=== PATIENT | female | born 1945 | race Caucasian/White ===

== ENCOUNTER → 2022-12-22 13:37 | Outpatient (BNVA) | payer MEDICARE, SELFPAY | PROVIDERS: PCP Internal Medicine; Visit Provider Hospitalist | DX: J44.9 Chronic obstructive pulmonary disease, unspecified (principal); J96.10 Chronic respiratory failure, unspecified whether with hypoxia or hypercapnia; I50.9 Heart failure, unspecified; G47.33 Obstructive sleep apnea (adult) (pediatric); R60.0 Localized edema | CPT/HCPCS: 94618; 99202 ==

== ENCOUNTER 2023-01-18 15:50 | Outpatient (REF) | payer MEDICARE, SELFPAY ==
--- NOTE | ~2023-01-18 | XR_ITS ---
EXAMINATION: XR CHEST CLINICAL INFORMATION: COPD COMPARISON: None available. TECHNIQUE: 2 views of the chest were obtained. FINDINGS: No significant abnormality is noted involving the heart, lungs, mediastinum, bony thorax or soft tissues. XR/XR chest 2V IMPRESSION: Unremarkable chest examination.
--- NOTE | 2023-01-18 17:28 | PFT_ITS ---
INDICATION: COPD. SPIROMETRY: FEV1 to FVC of 67% with an FEV1 of 1 L, which is 56% predicted and FVC of 1.49 L, which is 62% predicted. No significant response to bronchodilator is noted. Maximum voluntary ventilation is 49%. LUNG VOLUMES: Total lung capacity 81% predicted. DIFFUSION CAPACITY: DLCO 71% predicted. COMPARISON: None. INTERPRETATION: There is an obstructive ventilatory defect consistent with moderate COPD. No significant response to bronchodilators noted. Moderate decrease in maximum voluntary ventilation secondary to likely deconditioning. Lung volumes are low normal with a significantly decreased expiratory reserve volume secondary to an elevated BMI. The patient has a diffusion impairment. Clinical correlation warranted. Jeffery Jackson MD MR/MODL / [id number]
== END 2023-01-18 15:51 | disposition home or self-care (01) ==
LOC: HO.RESP 15:50
PROVIDERS: PCP Internal Medicine; Visit Provider Hospitalist
DX: J44.9 Chronic obstructive pulmonary disease, unspecified (principal)
CPT/HCPCS: 71046; 94060; 94727; 94729

== ENCOUNTER 2023-01-25 15:18 | Outpatient (REF) | payer MEDICARE, SELFPAY ==
[2023-01-25 18:14] LABS: Eosinophils Percent Auto 0.2 % (0-4); Red Cell Distribution Width 13.2 % (11.0-16.0); SCAN SMEAR FLAG 1
[2023-01-25 18:16] LABS: Basophils Percent Auto 0.2 % (0-2); Hematocrit 39.8 % (37.0-47.0); Imm Gran Abs Auto 0.08 X10*3/uL (0.00-0.03); Imm Gran Pct Auto 0.7 % (0.0-0.4); Lymphocytes Absolute Auto 0.6 X10*3/uL (1.2-4.9); MANUAL DIFF FLAG SCAN; Mean Corpuscular HGB Conc 32.7 g/dl (31.0-35.0); Mean Corpuscular Hemoglobin 30.7 pg (27.0-33.0); Mean Corpuscular Volume 94.1 fL (80.0-98.0); Mean Platelet Volume 13.2 fL (9.4-12.3); Monocytes Absolute Auto 0.1 X10*3/uL (0.1-1.2); Monocytes Percent Auto 0.9 % (2-11); Neutrophils Absolute Auto 10.6 x10*3/uL (2.0-8.3); Platelet Count 173 X10*3/uL (160-400); Red Blood Count 4.23 X10*6/uL (4.20-5.50); White Blood Count 11.4 X10*3/uL (4.8-10.8)
[2023-01-25 18:18] LABS: PLT ABN DIST 1
[2023-01-25 18:28] LABS: Anion Gap 16 (12-20); Blood Urea Nitrogen 57 mg/dL (9-16); Calcium 6.7 mg/dL (8.4-10.2); Carbon Dioxide 31 mmol/L (22-29); Chloride 97 mmol/L (96-108); Estimated Glomerular Filt Rate 24; Glucose Random 416 mg/dL (60-115); Potassium 4.9 mmol/L (3.3-5.1); Sodium 139 mmol/L (135-145)
[2023-01-25 18:39] LABS: Erythrocyte Sedimentation Rate 49 MM/HR (0-20)
[2023-01-25 18:51] LABS: SLIDE REVIEW VERIFIED
[2023-01-27 13:58] LABS: Immunoglobulin G Subclass 1 239 mg/dL (382-929); Immunoglobulin G Subclass 2 248 mg/dL (241-700); Immunoglobulin G Subclass 3 79 mg/dL (22-178); Immunoglobulin G Subclass 4 24.5 mg/dL (4-86); Immunoglobulin G Total 641 mg/dL (600-1540)
== END 2023-01-25 15:19 | disposition home or self-care (01) ==
LOC: HO.LAB 15:18
PROVIDERS: PCP Internal Medicine; Visit Provider Hospitalist
DX: J44.9 Chronic obstructive pulmonary disease, unspecified (principal); J96.10 Chronic respiratory failure, unspecified whether with hypoxia or hypercapnia; G47.33 Obstructive sleep apnea (adult) (pediatric); R60.0 Localized edema; I50.9 Heart failure, unspecified; I27.20 Pulmonary hypertension, unspecified; T78.40XA Allergy, unspecified, initial encounter
CPT/HCPCS: 36415; 80048; 82784; 82785; 85025; 85652; 86003; 94618; 99212

== ENCOUNTER 2023-05-18 14:34 | Outpatient (AMB) | payer MEDICARE, SELFPAY ==
[2023-05-18 14:40] VITALS: BP 154/80; PULSE 98; O2SAT 99; BMI 41.5
--- NOTE | 2023-05-18 14:40 | MHC.OFFVIS ---
Intake Vital Signs 05/18/23 14:40 Height 5 ft 2 in Weight 227 lb BMI 41.5 BP 154/80 H Blood Pressure Location Lt brachial Position Standing Pulse 98 Pulse Source Pulse Oximeter Pulse Oximetry (%) 99 Oxygen Delivery Method Nasal Cannula Oxygen Flow Rate 2 Intake Visit Reasons: hosp follow up Intake Note: pt is here for follow up of hospital stays for shingles. Her breathing is so so. Allergies erythromycin base Allergy (Severe, Verified 05/18/23 14:47) Rash ciprofloxacin [From Cipro] Adverse Reaction (Severe, Verified 05/18/23 14:47) Rash HPI HPI Comments History of Present Illness Details The patient is a 77 year woman with a known history of COPD, ROBERTO on CPAP, in addition to congestive heart failure been complaining of worsening dyspnea on exertion the patient states that several years ago she was admitted to [facility] with a episode of decompensated heart failure. During that time the patient was placed on oxygen and was placed on cardioprotective medications and diuretics. Ultimately she was discharged on oxygen. Therefore she has been on oxygen now for several years getting his at her oxygen to her [employer] company, [employer] Her family has also noticed that she has had significant wheezing and shortness of breath. She had been evaluated by Pulmonary in the past although I do not have those notes. She has not had pulmonary function studies in several years. She did follow-up with her primary care doctor who noted that she had been having significant wheezing and she was given a course of prednisone and also a sample of Stiolto. She completed the prednisone and she did feel little partial improvement. She continues on the Stiolto although is difficult for her to use. She had been on Anoro inhaler in the past but was 300 dollars extremely expensive and she could not afford using that on a monthly basis. Her friend did have a nebulizer and did provide the nebulizer for on treatment because she was wheezy and she did have improvement of her symptoms. She is wondering if a nebulizer could be helpful. Therefore she was referred to Pulmonary for further evaluation. During the visit we did go for 6 minutes walk test on the patient quickly desaturated on room air. She did well with a conserving device so therefore I will see resend a prescription to her [employer] company, [employer] in order for her to get be cylinders with a conserving valve with 2 L pulse. This will provide her better portability outside of the home. The patient also family the are also interested in getting a portable oxygen concentrator. Explained to them that this would be something that could be done but is going to take a significantly long time and sometimes it could be more than a year. Therefore she can start with the cylinders and try the pulse valve to see how this is effective for her. We can also provide her with a nebulizer and provided with medications in order for her to use it on a regular basis. The in the meantime will also have her undergo pulmonary function studies and a chest x-ray and she will follow up. the patient is also working with Cardiology. She did undergo an echocardiogram and now scheduled to undergo a nuclear stress test in the coming days. I do not have those results. 01/25/2023 the patient is here for pulmonary follow-up visit. Since we last spoke the patient did develop worsening shortness of breath and cough and wheezing. She did call in and we Center prednisone antibiotics. The prednisone did help her breathing significantly. Now she has completed the course. She still having shortness of breath. She did qualify for oxygen with activity during the last visit. Will go ahead and make sure that [facility] [place] provides her with portable tanks ideally be sending the heart to be able to carry the oxygens outside of the home easier. In addition to this the patient has been using the Xopenex and also the budesonide twice a day. This has been partially helpful. We can also add muscarinic antagonist to the regimen and is no better. In addition to this will request blood work including allergy testing to assess to see if she is a good candidate for biologic therapy. We did review her pulmonary function studies demonstrating a moderate to severe obstructive lung disease in this case likely uncontrolled asthma and also the of lotion of COPD. Apparently the patient did have an echocardiogram done. I do not have the results but based on the daughter's description it appears that she has a component of pulmonary hypertension. Apparently her cardiac status is otherwise stable. It is possible that she has pulmonary hypertension secondary to her history of COPD and also some obstructive sleep apnea. Although will have to further address that to make sure the patient does not have any of the other groups. Patient is definitely volume overloaded this time she needs a additional diuresis. 05/19/2023 the patient is here for hospital follow-up visit. The patient has COPD and also has been on CPAP. [facility]. She was having significant shortness of breath. While she was there she developed respiratory failure. She was transferred over to [facility] required BiPAP. Even after BiPAP she has evidence of chronic hypercarbic respiratory failure secondary to her COPD. The patient has been on maximum respiratory therapy for COPD. At this point the patient needs to restart her on a noninvasive ventilator. The patient carries a poor prognosis with significant hypercarbia. She also carries a high risk of readmissions to the hospital. For that reason the patient needs to start a noninvasive ventilator. Noninvasive ventilator were improve her gas exchange and would also improve her prognosis and decrease hospitalizations. I spoken to the family and they are agreeable to this will start the process in order to get her on an astral noninvasive ventilator at this time. [facility] Medical History (Updated 05/19/23 @ 10:58 by Jeffery Jackson MD) Asthma CHF (congestive heart failure) Chronic respiratory failure COPD (chronic obstructive pulmonary disease) Extremity edema ROBERTO (obstructive sleep apnea) Pulmonary hypertension Social History Patient Tobacco Use Status: Never used Tobacco Review of Systems Const Reports daytime sleepiness, Reports fatigue and Reports weight gain Eyes Denies change in vision ENT Denies nasal congestion Card Denies chest pain, Reports leg edema and Reports dyspnea on exertion Resp Reports cough, Reports dyspnea on exertion and Reports wheezing GI Reports no additional complaints Musc Reports no additional complaints and Reports myalgias Skin/Breast Denies rash Neuro Reports no additional complaints Endo Reports fatigue Clint/Lymph Denies easy bleeding and Denies easy bruising Aller/Immun Reports wheezing Physical Exam Vital Signs: Last Vital Signs Pulse 98 05/18/23 14:40 BP 154/80 H 05/18/23 14:40 Pulse Ox 99 05/18/23 14:40 Oxygen Delivery Method Nasal Cannula 05/18/23 14:40 Oxygen Flow Rate 2 05/18/23 14:40 BMI result Body Mass Index 41.5 Const General: comfortable HEENT Head: Yes normocephalic Eyes General: appearance normal, both eyes and all related structures Neck Neck: Yes supple Chest Chest palpation & inspection: normal inspection of the chest Resp Effort & Inspection: normal respiratory effort Auscultation: no rales, no wheezes and diminished lung sounds Cardio Rate: regular rate Rhythm: regular rhythm Heart sounds: S1 normal heart sound present and S2 normal heart sound present GI Palpation (GI): Soft to palpation Skin General skin exam: no rashes or lesions noted Extrem General: Yes edema Office Procedures 6 Minute Walk Time:: 15:10 SPO2 % at rest: 92 Pulse at rest: 86 SPO2 % during excercise: 84 Pulse during excercise: 104 SPO2 % after excercise: 94 Pulse after excercise: 104 Distance in yards walked: 75 Prasanna Score: 5 Supplemental Oxygen: O2 at 2L Performance Observations:: SPO2 at rest 92% Pulse 86 Patient walked on level ground without assistance. After 20 yards SPO2 dropped to 84% Pulse 104.Supplemental O2 applied at 2L via nasal cannula and rested 1 minute. Recovered SPO2 to 93% Pulse 98. Patient was able to complete the walk at moderate pace with supplemental O2 at 2L. Patient reports getting tired with shortness of breath with exertion. 32097 - 6 Minute Walk Assessment & Plan Assessment & Plan (1) COPD (chronic obstructive pulmonary disease): Comment: moderate to severe Code(s): J44.9 - Chronic obstructive pulmonary disease, unspecified (2) Extremity edema: Code(s): R60.0 - Localized edema (3) Chronic respiratory failure: Comment: We have evidence of chronic hypercarbic and hypoxic respiratory failure. The patient tried BiPAP and she is still hypercarbic. He the patient carries a poor prognosis and high risk for hospitalizations. She needs to start a noninvasive ventilator at this time to improve her gas exchange improved her prognosis and decrease hospitalizations. We will be arranging this with local [employer] company. Code(s): J96.10 - Chronic respiratory failure, unspecified whether with hypoxia or hypercapnia (4) CHF (congestive heart failure): Code(s): I50.9 - Heart failure, unspecified (5) Pulmonary hypertension: Comment: Likely WHO group 2&3 Code(s): I27.20 - Pulmonary hypertension, unspecified Plan continue nebulizer with xopenex and budesonide continue oxygen continue nocturnal oxygen use start Astral non invasive ventilator F/U 6-8 weeks Orders: Orders AMB 6 minute walk 05/18/23 J44.9 - Chronic obstructive pulmonary disease, unspecified Coding Level of Care Code Est Pt Level 5 (07466) Diagnoses COPD (chronic obstructive pulmonary disease) J44.9 Extremity edema R60.0 Chronic respiratory failure J96.10 CHF (congestive heart failure) I50.9 Pulmonary hypertension I27.20 CPT Codes Coding ([id number]) Time Spent (min) 30
[2023-05-18 15:40] VITALS: PULSE 86; O2SAT 92
== END 2023-05-18 15:21 | disposition home or self-care (01) ==
PROVIDERS: PCP Internal Medicine; Visit Provider Hospitalist
DX: J44.9 Chronic obstructive pulmonary disease, unspecified (principal); J96.11 Chronic respiratory failure with hypoxia; J96.12 Chronic respiratory failure with hypercapnia; I27.20 Pulmonary hypertension, unspecified; I50.9 Heart failure, unspecified; R60.0 Localized edema
CPT/HCPCS: 94618; 99214

== ENCOUNTER → 2023-05-18 14:34 | Outpatient (BNVA) | payer MEDICARE, SELFPAY | PROVIDERS: PCP Internal Medicine; Visit Provider Hospitalist | DX: J44.9 Chronic obstructive pulmonary disease, unspecified (principal); J96.10 Chronic respiratory failure, unspecified whether with hypoxia or hypercapnia; R60.0 Localized edema; I50.9 Heart failure, unspecified; I27.20 Pulmonary hypertension, unspecified | CPT/HCPCS: 94618; 99212 ==

== ENCOUNTER 2023-07-08 11:02 | Outpatient (AMB) | payer MEDICARE, SELFPAY ==
[2023-07-08 11:12] VITALS: PULSE 82; O2SAT 94; BMI 45.9
--- NOTE | 2023-07-08 11:12 | A.OFFVIS_ITS ---
Intake Vital Signs 07/08/23 11:12 Height 5 ft 1 in Weight 243 lb BMI 45.9 Pulse 82 Pulse Source Pulse Oximeter Pulse Oximetry (%) 94 Oxygen Delivery Method Room Air Comment 2 Liters Oxygen([facility]) Intake Visit Reasons: hosp follow up Allergies erythromycin base Allergy (Severe, Verified 07/08/23 11:14) Rash ciprofloxacin [From Cipro] Adverse Reaction (Severe, Verified 07/08/23 11:14) Rash HPI HPI Comments History of Present Illness Details The patient is a 78 year woman with a known history of COPD, ROBERTO on CPAP, in addition to congestive heart failure been complaining of worsening dyspnea on exertion the patient states that several years ago she was admitted to [facility] with a episode of decompensated heart failure. During that time the patient was placed on oxygen and was placed on cardioprotective medications and diuretics. Ultimately she was discharged on oxygen. Therefore she has been on oxygen now for several years getting his at her oxygen to her [employer], [employer]. Her family has also noticed that she has had significant wheezing and shortness of breath. She had been evaluated by Pulmonary in the past although I do not have those notes. She has not had pulmonary function studies in several years. She did follow-up with her primary care doctor who noted that she had been having significant wheezing and she was given a course of prednisone and also a sample of Stiolto. She completed the prednisone and she did feel little partial improvement. She continues on the Stiolto although is difficult for her to use. She had been on Anoro inhaler in the past but was 300 dollars extremely expensive and she could not afford using that on a monthly basis. Her friend did have a nebulizer and did provide the nebulizer for on treatment because she was wheezy and she did have improvement of her symptoms. She is wondering if a nebulizer could be helpful. Therefore she was referred to Pulmonary for further evaluation. During the visit we did go for 6 minutes walk test on the patient quickly desaturated on room air. She did well with a conserving device so therefore I will see resend a prescription to her [employer], [employer] in order for her to get be cylinders with a conserving valve with 2 L pulse. This will provide her better portability outside of the home. The patient also family the are also interested in getting a portable oxygen concentrator. Explained to them that this would be something that could be done but is going to take a significantly long time and sometimes it could be more than a year. Therefore she can start with the cylinders and try the pulse valve to see how this is effective for her. We can also provide her with a nebulizer and provided with medications in order for her to use it on a regular basis. The in the meantime will also have her undergo pulmonary function studies and a chest x-ray and she will follow up. the patient is also working with Cardiology. She did undergo an echocardiogram and now scheduled to undergo a nuclear stress test in the coming days. I do not have those results. 01/25/2023 the patient is here for pulmon riri follow-up visit. Since we last spoke the patient did develop worsening shortness of breath and cough and wheezing. She did call in and we Center prednisone antibiotics. The prednisone did help her breathing significantly. Now she has completed the course. She still having shortness of breath. She did qualify for oxygen with activity during the last visit. Will go ahead and make sure that [facility] provides her with portable tanks ideally be sending the heart to be able to carry the oxygens outside of the home easier. In addition to this the patient has been using the Xopenex and also the budesonide twice a day. This has been partially helpful. We can also add muscarinic antagonist to the regimen and is no better. In addition to this will request blood work including allergy testing to assess to see if she is a good candidate for biologic therapy. We did review her pulmonary function studies demonstrating a moderate to severe obstructive lung disease in this case likely uncontrolled asthma and also the of lotion of COPD. Apparently the patient did have an echocardiogram done. I do not have the results but based on the daughter's description it appears that she has a component of pulmonary hypertension. Apparently her cardiac status is otherwise stable. It is possible that she has pulmonary hypertension secondary to her history of COPD and also some obstructive sleep apnea. Although will have to further address that to make sure the patient does not have any of the other groups. Patient is definitely volume overloaded this time she needs a additional diuresis. 05/19/2023 the patient is here for hospit al follow-up visit. The patient has COPD and also has been on CPAP. She was admitted to the [facility] hospital with significant discomfort. She was having significant shortness of breath. While she was there she developed respiratory failure. She was transferred over to [facility] required BiPAP. Even after BiPAP she has evidence of chronic hypercarbic respiratory failure secondary to her COPD. The patient has been on maximum respiratory therapy for COPD. At this point the patient needs to restart her on a noninvasive ventilator. The patient carries a poor prognosis with significant hypercarbia. She also carries a high risk of readmissions to the hospital. For that reason the patient needs to start a noninvasive ventilator. Noninvasive ventilator were improve her gas exchange and would also improve her prognosis and decrease hospitalizations. I spoken to the family and they are agreeable to this will start the process in order to get her on an astral noninvasive ventilator at this time. 07/08/2023 the patient is here for a pulmonary follow-up visit. Overall the patient has been doing better from a respiratory status. She did start the astral noninvasive ventilator. Is been very effective for her. She does use it every night. The therapy has been effective am beneficial. She is also been using her oxygen. The patient has been noticing increasing shortness of breath. Recently had a big [place] festival and she made a lot of food. There was some dietary indiscretions unfortunately. The patient noticed that her blood pressure went up and also significant weight gain. She is been working closely with cardiology to increase her diuretic safely. She does have blood work scheduled for tomorrow for additional evaluation of electrolytes and kidney function. If she does not improve there is mention of in-hospital therapy. We did have her undergo a chest x-ray today. No focal disease although appears to be demonstrating evidence of pulmonary vascular congestion. the patient will continue the diuretics as per Cardiology. If the patient is not better she will call and we can consider treating her for an ongoing lower respiratory process. But, right now she is not having any significant cough chest congestion or wheezing. [facility] Medical History (Updated 05/19/23 @ 10:58 by Jeffery Jackson MD) Pulmonary hypertension Asthma CHF (congestive heart failure) Chronic respiratory failure ROBERTO (obstructive sleep apnea) Extremity edema COPD (chronic obstructive pulmonary disease) Social History Patient Tobacco Use Status: Never used Tobacco Review of Systems Const Reports daytime sleepiness, Reports fatigue and Reports weight gain Eyes Denies change in vision ENT Denies nasal congestion Card Denies chest pain, Reports leg edema and Reports dyspnea on exertion Resp Reports cough, Reports dyspnea on exertion and Reports wheezing GI Reports no additional complaints Musc Reports no additional complaints and Reports myalgias Skin/Breast Denies rash Neuro Reports no additional complaints Endo Reports fatigue Clint/Lymph Denies easy bleeding and Denies easy bruising Aller/Immun Reports wheezing Physical Exam Vital Signs: Last Vital Signs Pulse 82 07/08/23 11:12 Pulse Ox 94 07/08/23 11:12 Oxygen Delivery Method Room Air 07/08/23 11:12 BMI result Body Mass Index 45.9 Const General: comfortable HEENT Head: Yes normocephalic Eyes General: appearance normal, both eyes and all related structures Neck Neck: Yes supple Chest Chest palpation & inspection: normal inspection of the chest Resp Effort & Inspection: normal respiratory effort Auscultation: rales, no wheezes and diminished lung sounds Cardio Rate: regular rate Rhythm: regular rhythm Heart sounds: S1 normal heart sound present and S2 normal heart sound present GI Palpation (GI): Soft to palpation Skin General skin exam: no rashes or lesions noted Extrem General: Yes edema Assessment & Plan Assessment & Plan (1) COPD (chronic obstructive pulmonary disease): Comment: moderate to severe Code(s): J44.9 - Chronic obstructive pulmonary disease, unspecified (2) Extremity edema: Code(s): R60.0 - Localized edema (3) Chronic respiratory failure: Comment: We have evidence of chronic hypercarbic and hypoxic respiratory failure. The patient tried BiPAP and she is still hypercarbic. He the patient carries a poor prognosis and high risk for hospitalizations. She needs to start a noninvasive ventilator at this time to improve her gas exchange improved her prognosis and decrease hospitalizations. We will be arranging this with local [facility] company. Code(s): J96.10 - Chronic respiratory failure, unspecified whether with hypoxia or hypercapnia (4) CHF (congestive heart failure): Code(s): I50.9 - Heart failure, unspecified (5) Pulmonary hypertension: Comment: Likely WHO group 2&3 Code(s): I27.20 - Pulmonary hypertension, unspecified Plan continue nebulizer with xopenex and budesonide continue oxygen continue nocturnal oxygen use continue Astral non invasive ventilator Agree with diuresis, may benefit from inpt if fails outpt therapy. She does have evidence of CHF with +crakles and increase pulmonary vascular congestion. CXR F/U 8-12 weeks Orders: Orders XR chest 2V Today I50.9 - Heart failure, unspecified Coding Level of Care Code Est Pt Level 4 (17094) Diagnoses COPD (chronic obstructive pulmonary disease) J44.9 Extremity edema R60.0 Chronic respiratory failure J96.10 CHF (congestive heart failure) I50.9 Pulmonary hypertension I27.20 Time Spent (min) 17
== END 2023-07-08 11:44 | disposition home or self-care (01) ==
PROVIDERS: PCP Internal Medicine; Visit Provider Hospitalist
DX: J44.9 Chronic obstructive pulmonary disease, unspecified (principal); R60.0 Localized edema; J96.10 Chronic respiratory failure, unspecified whether with hypoxia or hypercapnia; I50.9 Heart failure, unspecified; I27.20 Pulmonary hypertension, unspecified
CPT/HCPCS: 99214

== ENCOUNTER 2023-07-08 11:02 | Outpatient (REF) | payer MEDICARE, SELFPAY ==
--- NOTE | ~2023-07-08 | XR_ITS ---
EXAMINATION: XR CHEST CLINICAL INFORMATION: Heart failure COMPARISON: 01/18/2023 TECHNIQUE: 2 views of the chest were obtained. FINDINGS: Cardiac silhouette and central pulmonary vessels are chronically mildly enlarged. No acute abnormality compared to 01/18/2023. No evidence of septal thickening, focal consolidation or pleural effusion. There is atherosclerotic calcification of the aorta. The visualized bones are intact. XR/XR chest 2V IMPRESSION: Mild cardiomegaly. Compared to 01/18/2023, there is no evidence of acute/active cardiac failure. No pulmonary edema or pleural effusion.
== END 2023-07-08 11:03 | disposition home or self-care (01) ==
LOC: HO.XRAY 11:02
PROVIDERS: PCP Internal Medicine; Visit Provider Hospitalist
DX: I50.9 Heart failure, unspecified (principal); J44.9 Chronic obstructive pulmonary disease, unspecified; R60.0 Localized edema; J96.10 Chronic respiratory failure, unspecified whether with hypoxia or hypercapnia; I27.20 Pulmonary hypertension, unspecified
CPT/HCPCS: 71046; 99212

== ENCOUNTER 2023-10-04 10:33 | Outpatient (AMB) | payer MEDICARE, SELFPAY ==
[2023-10-04 10:44] VITALS: PULSE 77; O2SAT 95; BMI 46.1
--- NOTE | 2023-10-04 10:44 | A.OFFVIS_ITS ---
Intake Vital Signs 10/04/23 10:44 Height 5 ft 1 in Weight 244 lb BMI 46.1 Pulse 77 Pulse Source Pulse Oximeter Pulse Oximetry (%) 95 Oxygen Delivery Method Room Air Comment 2 Liters Oxygen([facility]) Intake Visit Reasons: COPD Prosthetic Makeup Designer Required: No Allergies erythromycin base Allergy (Severe, Verified 10/04/23 10:48) Rash ciprofloxacin [From Cipro] Adverse Reaction (Severe, Verified 10/04/23 10:48) Rash HPI HPI Comments History of Present Illness Details The patient is a 78 year woman with a known history of COPD, ROBERTO on CPAP, in addition to congestive heart failure been complaining of worsening dyspnea on exertion the patient states that several years ago she was admitted to [facility] with a episode of decompensated heart failure. During that time the patient was placed on oxygen and was placed on cardioprotective medications and diuretics. Ultimately she was discharged on oxygen. Therefore she has been on oxygen now for several years getting his at her oxygen to her [employer], [employer]. Her family has also noticed that she has had significant wheezing and shortness of breath. She had been evaluated by Pulmonary in the past although I do not have those notes. She has not had pulmonary function studies in several years. She did follow-up with her primary care doctor who noted that she had been having significant wheezing and she was given a course of prednisone and also a sample of Stiolto. She completed the prednisone and she did feel little partial improvement. She continues on the Stiolto although is difficult for her to use. She had been on Anoro inhaler in the past but was 300 dollars extremely expensive and she could not afford using that on a monthly basis. Her friend did have a nebulizer and did provide the nebulizer for on treatment because she was wheezy and she did have improvement o f her symptoms. She is wondering if a nebulizer could be helpful. Therefore she was referred to Pulmonary for further evaluation. During the visit we did go for 6 minutes walk test on the patient quickly desaturated on room air. She did well with a conserving device so therefore I will see resend a prescription to her [employer], [employer] in order for her to get be cylinders with a conserving valve with 2 L pulse. This will provide her better portability outside of the home. The patient also family the are also interested in getting a portable oxygen concentrator. Explained to them that this would be something that could be done but is going to take a significantly long time and sometimes it could be more than a year. Therefore she can start with the cylinders and try the pulse valve to see how this is effective for her. We can also provide her with a nebulizer and provided with medications in order for her to use it on a regular basis. The in the meantime will also have her undergo pulmonary function studies and a chest x-ray and she will follow up. the patient is also working with Cardiology. She did undergo an echocardiogram and now scheduled to undergo a nuclear stress test in the coming days. I do not have those results. 01/25/2023 the patient is here for pulmon riri follow-up visit. Since we last spoke the patient did develop worsening shortness of breath and cough and wheezing. She did call in and we Center prednisone antibiotics. The prednisone did help her breathing significantly. Now she has completed the course. She still having shortness of breath. She did qualify for oxygen with activity during the last visit. Will go ahead and make sure that [facility] provides her with portable tanks ideally be sending the heart to be able to carry the oxygens outside of the home easier. In addition to this the patient has been using the Xopenex and also the budesonide twice a day. This has been partially helpful. We can also add muscarinic antagonist to the regimen and is no better. In addition to this will request blood work including allergy testing to assess to see if she is a good candidate for biologic therapy. We did review her pulmonary function studies demonstrating a moderate to severe obstructive lung disease in this case likely uncontrolled asthma and also the of lotion of COPD. Apparently the patient did have an echocardiogram done. I do not have the results but based on the daughter's description it appears that she has a component of pulmonary hypertension. Apparently her cardiac status is otherwise stable. It is possible that she has pulmonary hypertension secondary to her history of COPD and also some obstructive sleep apnea. Although will have to further address that to make sure the patient does not have any of the other groups. Patient is definitely volume overloaded this time she needs a additional diuresis. 05/19/2023 the patient is here for hospit al follow-up visit. The patient has COPD and also has been on CPAP. She was admitted to the [facility] with significant discomfort. She was having significant shortness of breath. While she was there she developed respiratory failure. She was transferred over to [facility] required BiPAP. Even after BiPAP she has evidence of chronic hypercarbic respiratory failure secondary to her COPD. The patient has been on maximum respiratory therapy for COPD. At this point the patient needs to restart her on a noninvasive ventilator. The patient carries a poor prognosis with significant hypercarbia. She also carries a high risk of readmissions to the hospital. For that reason the patient needs to start a noninvasive ventilator. Noninvasive ventilator were improve her gas exchange and would also improve her prognosis and decrease hospitalizations. I spoken to the family and they are agreeable to this will start the process in order to get her on an astral noninvasive ventilator at this time. 07/08/2023 the patient is here for a pulmonary follow-up visit. Overall the patient has been doing better from a respiratory status. She did start the astral noninvasive ventilator. Is been very effective for her. She does use it every night. The therapy has been effective am beneficial. She is also been using her oxygen. The patient has been noticing increasing shortness of breath. Recently had a big [place] festival and she made a lot of food. There was some dietary indiscretions unfortunately. The patient noticed that her blood pressure went up and also significant weight gain. She is been working closely with cardiology to increase her diuretic safely. She does have blood work scheduled for tomorrow for additional evaluation of electrolytes and kidney function. If she does not improve there is mention of in-hospital therapy. We did have her undergo a chest x-ray today. No focal disease although appears to be demonstrating evidence of pulmonary vascular congestion. the patient will continue the diuretics as per Cardiology. If the patient is not better she will call and we can consider treating her for an ongoing lower respiratory process. But, right now she is not having any significant cough chest congestion or wheezing. 10/04/2023 the patient is here for a pulm onary follow-up visit. The patient has been complaining of worsening shortness of breath. She has gained close to 20 l b since her last visit. She did call out to Cardiology to see if her a diuretic can be adjusted. She was increased on 20 mg of torsemide to 40 mg recently. Still she has a lot of swelling. She has crackles on examination of concerned she is in heart failure. The patient is also using her oxygen. At nighttime she went back to her CPAP because is been hard to tolerate the noninvasive ventilator. I did explain to her that she needs to use her noninvasive ventilator because of her significant hypercarbia. Today before she goes I have her get blood work including a venous blood gas to assess her CO2 and make sure that she does not have any acute components to her hypercarbia. The patient will also have her kidney function checked checked and I will send the blood work over to her end worker in order for them to adjust her diuretics. The patient may benefit from a purple of some type to make sure that she can increased her diuretics to help her with her significant volume overload status. She understands that when her volume increases her pulmonary pressures and a respiratory symptoms also worsen. I will check a lot a prescription for adjustments to her noninvasive ventilator, astral. I did reach out to [facility] to make sure that they go over to her house to adjust the machine accordingly. [facility] Medical History (Updated 10/04/23 @ 12:40 by Jeffery Jackson MD) Pulmonary hypertension Asthma CHF (congestive heart failure) Chronic respiratory failure ROBERTO (obstructive sleep apnea) Extremity edema COPD (chronic obstructive pulmonary disease) Social History Patient Tobacco Use Status: Never used Tobacco Review of Systems Const Reports daytime sleepiness, Reports fatigue and Reports weight gain Eyes Denies change in vision ENT Denies nasal congestion Card Denies chest pain, Reports leg edema and Reports dyspnea on exertion Resp Reports cough, Reports dyspnea on exertion and Reports wheezing GI Reports no additional complaints Musc Reports no additional complaints and Reports myalgias Skin/Breast Denies rash Neuro Reports no additional complaints Endo Reports fatigue Clint/Lymph Denies easy bleeding and Denies easy bruising Aller/Immun Reports wheezing Physical Exam Vital Signs: Last Vital Signs Pulse 77 10/04/23 10:44 Pulse Ox 95 10/04/23 10:44 Oxygen Delivery Method Room Air 10/04/23 10:44 BMI result Body Mass Index 46.1 Const General: comfortable HEENT Head: Yes normocephalic Eyes General: appearance normal, both eyes and all related structures Neck Neck: Yes supple Chest Chest palpation & inspection: normal inspection of the chest Resp Effort & Inspection: normal respiratory effort Auscultation: rales, no wheezes and diminished lung sounds Cardio Rate: regular rate Rhythm: regular rhythm Heart sounds: S1 normal heart sound present and S2 normal heart sound present GI Palpation (GI): Soft to palpation Skin General skin exam: no rashes or lesions noted Extrem General: Yes edema Office Procedures 6 Minute Walk Time:: 18:34 SPO2 % at rest: 95 Pulse at rest: 101 SPO2 % during excercise: 92 Pulse during excercise: 110 Distance in yards walked: 50 Prasanna Score: 5 [id number] - 6 Minute Walk Results Reviewed Results Reviewed: RUN: 10/04/23 2680 PAGE 1 [facility] [address] [place] [id number] Lacer And Tier: James Sanchez M.D. Specimen Inquiry Name: Carl Green Age/Sex: 78/F : 1945 Unit#: [id number] Attend Dr: Jeffery Jackson MD Re10/04/23 Status: REG [facility]F [facility] Disch: SPEC : [id number] SHAMEKA: 10/04/23 STATUS: COMP REQ : [id number] RECD: 10/04/[address]: Jeffery Jackson MD COMP: 10/04/23 ENTERED: 10/04/[address] [facility] [address]: DAKOTA BARBOUR MD ORDERED: CBC Auto Diff Test Result Flag Reference Site WBC 5.9 4.8-10.8 X10*3/uL RBC 3.43 L 4.20-5.50 X10*6/uL HGB 10.5 L 12.0-16.0 g/dl HCT 32.9 L 37.0-47.0 % MCV 95.9 80.0-98.0 fL MCH 30.6 27.0-33.0 pg MCHC 31.9 31.0-35.0 g/dl RDW 13.7 11.0-16.0 % PLT 187 160-400 X10*3/uL MPV 11.6 9.4-12.3 fL Neut Pct Auto 71.2 45-73 % ImGran Pct Auto 0.5 H 0.0-0.4 % Lymp Pct Auto 18.6 L 20-40 % Cache Pct Auto 7.8 2-11 % Eos Pct Auto 1.7 0-4 % Baso Pct Auto 0.2 0-2 % NRBC Pct Auto 0.0 0.0-0.2 /100WBC ANC Neut Abs # 4.2 2.0-8.3 x10*3/uL ImGran Abs Auto 0.03 0.00-0.03 X10*3/uL Lymph Abs Auto 1.1 L 1.2-4.9 X10*3/uL Cache Abs Auto 0.5 0.1-1.2 X10*3/uL Eos Abs Auto 0.1 0.0-0.4 X10*3/uL Baso Abs Auto 0.0 0.0-0.2 X10*3/uL NRBC Abs Auto 0.000 0.0-0.012 X10*3/uL END OF REPORT RUN: 10/04/23 5950 PAGE 1 [facility] [address] [place] [id number] Lacer And Tier: James Sanchez M.D. Specimen Inquiry Name: Carl Green Age/Sex: 78/F : 1945 Unit#: [id number] Attend Dr: Jeffery Jackson MD Re10/04/23 Status: REG REF Location: [facility] Disch: SPEC : [id number] SHAMEKA: 10/04/23 STATUS: COMP REQ : [id number] RECD: 12/04/23-[address]: Jeffery Jackson MD COMP: 10/04/23-1253 ENTERED: 10/04/23-[address] [facility] [address]: DAKOTA BARBOUR MD ORDERED: BMP Test Result Flag Reference Site Sodium 142 135-145 mmol/L Potassium 4.9 3.3-5.1 mmol/L CL 94 L 96-108 mmol/L CO2 39 H 22-29 mmol/L Gap 14 12-20 BUN 42 H 9-16 mg/dL Creat 1.49 H 0.5-1.4 mg/dL EGFR 34 NOTE: For -[place] individuals, multiply the result by 1.210. Chronic Kidney Disease: Estimated GFR < 60 mL/min/1.73m2 Severe Kidney Disease: Estimated GFR < 15 mL/min/1.73m2 Glucose, Random 179 H 60-115 mg/dL CA 7.6 # L 8.4-10.2 mg/dL END OF REPORT Assessment & Plan Assessment & Plan (1) CHF (congestive heart failure): Code(s): I50.9 - Heart failure, unspecified Qualifiers: Heart failure chronicity: acute on chronic Heart failure type: systolic Qualified Code(s): I50.23 - Acute on chronic systolic (congestive) heart failure (2) COPD (chronic obstructive pulmonary disease): Comment: moderate to severe Code(s): J44.9 - Chronic obstructive pulmonary disease, unspecified Qualifiers: COPD type: emphysema Emphysema type: centrilobular Qualified Code(s): J43.2 - Centrilobular emphysema (3) Extremity edema: Code(s): R60.0 - Localized edema (4) Chronic respiratory failure: Code(s): J96.10 - Chronic respiratory failure, unspecified whether with hypoxia or hypercapnia Qualifiers: Respiratory failure complication: hypoxia and hypercapnia Qualified Code(s): J96.11 - Chronic respiratory failure with hypoxia; J96.12 - Chronic respiratory failure with hypercapnia (5) Pulmonary hypertension: Comment: Likely WHO group 2&3 Code(s): I27.20 - Pulmonary hypertension, unspecified Plan continue nebulizer with xopenex and budesonide continue oxygen continue nocturnal oxygen use continue Astral non invasive ventilator, need to have [employer] adjust the NIV Agree with diuresis, may benefit from inpt if fails outpt therapy. She does have evidence of CHF with +crakles and increase pulmonary vascular congestion. Bloodwork F/U 8-12 weeks Orders: Orders Basic Metabolic Panel Today I27.20 - Pulmonary hypertension, unspecified, I50.9 - Heart failure, unspecified, J96.10 - Chronic respiratory failure, unspecified whether with hypoxia or hypercapnia Complete Blood Count Auto Diff Today I27.20 - Pulmonary hypertension, unspecified, I50.9 - Heart failure, unspecified, J96.10 - Chronic respiratory failure, unspecified whether with hypoxia or hypercapnia Venous Blood Gas Today I27.20 - Pulmonary hypertension, unspecified, I50.9 - Heart failure, unspecified, J96.10 - Chronic respiratory failure, unspecified whether with hypoxia or hypercapnia B Type Natriuretic Peptide Today I27.20 - Pulmonary hypertension, unspecified, I50.9 - Heart failure, unspecified, J96.10 - Chronic respiratory failure, unspecified whether with hypoxia or hypercapnia Erythrocyte Sedimentation Rate Today I27.20 - Pulmonary hypertension, unspecified, I50.9 - Heart failure, unspecified, J96.10 - Chronic respiratory failure, unspecified whether with hypoxia or hypercapnia Coding Level of Care Code Est Pt Level 4 (58778) Diagnoses Acute on chronic systolic congestive heart failure I50.23 Heart failure chronicity: acute on chronic Heart failure type: systolic Centrilobular emphysema J43.2 COPD type: emphysema Emphysema type: centrilobular Extremity edema R60.0 Chronic respiratory failure with hypoxia and hypercapnia J96.11; J96.12 Respiratory failure complication: hypoxia and hypercapnia Pulmonary hypertension I27.20 CPT Codes Coding ([id number])
[2023-10-04 18:33] VITALS: PULSE 101; O2SAT 95
== END 2023-10-04 11:12 | disposition home or self-care (01) ==
PROVIDERS: PCP Internal Medicine; Visit Provider Hospitalist
DX: I50.23 Acute on chronic systolic (congestive) heart failure (principal); J43.2 Centrilobular emphysema; R60.0 Localized edema; J96.11 Chronic respiratory failure with hypoxia; J96.12 Chronic respiratory failure with hypercapnia; I27.20 Pulmonary hypertension, unspecified
CPT/HCPCS: 94618; 99214

== ENCOUNTER 2023-10-04 10:33 | Outpatient (REF) | payer MEDICARE, SELFPAY ==
[2023-10-04 11:39] LABS: MANUAL DIFF FLAG NO
[2023-10-04 11:44] LABS: Venous Blood Gas Refer to POC result
[2023-10-04 11:45] LABS: VBG Base Excess 18.5 mmol/L; VBG HCO3 48 mmol/L (22-26); VBG pCO2 87 mmHg; VBG pH 7.35 (7.32-7.43); VBG pO2 33 mmHg
[2023-10-04 12:10] LABS: Basophils Percent Auto 0.2 % (0-2); Eosinophils Absolute Auto 0.1 X10*3/uL (0.0-0.4); Eosinophils Percent Auto 1.7 % (0-4); Hematocrit 32.9 % (37.0-47.0); Hemoglobin 10.5 g/dl (12.0-16.0); Imm Gran Abs Auto 0.03 X10*3/uL (0.00-0.03); Imm Gran Pct Auto 0.5 % (0.0-0.4); Lymphocytes Absolute Auto 1.1 X10*3/uL (1.2-4.9); Lymphocytes Percent Auto 18.6 % (20-40); Mean Corpuscular HGB Conc 31.9 g/dl (31.0-35.0); Mean Corpuscular Hemoglobin 30.6 pg (27.0-33.0); Mean Corpuscular Volume 95.9 fL (80.0-98.0); Mean Platelet Volume 11.6 fL (9.4-12.3); Monocytes Absolute Auto 0.5 X10*3/uL (0.1-1.2); Monocytes Percent Auto 7.8 % (2-11); Neutrophils Absolute Auto 4.2 x10*3/uL (2.0-8.3); Neutrophils Percent Auto 71.2 % (45-73); Platelet Count 187 X10*3/uL (160-400); Red Blood Count 3.43 X10*6/uL (4.20-5.50); Red Cell Distribution Width 13.7 % (11.0-16.0); White Blood Count 5.9 X10*3/uL (4.8-10.8)
[2023-10-04 12:38] LABS: B Type Natriuretic Peptide 418 pg/mL (<100)
[2023-10-04 12:53] LABS: Anion Gap 14 (12-20); Blood Urea Nitrogen 42 mg/dL (9-16); Calcium 7.6 mg/dL (8.4-10.2); Carbon Dioxide 39 mmol/L (22-29); Chloride 94 mmol/L (96-108); Estimated Glomerular Filt Rate 34; Glucose Random 179 mg/dL (60-115); Potassium 4.9 mmol/L (3.3-5.1); Sodium 142 mmol/L (135-145)
[2023-10-04 13:05] LABS: Erythrocyte Sedimentation Rate 83 MM/HR (0-20)
== END 2023-10-04 10:34 | disposition home or self-care (01) ==
LOC: HO.LAB 10:33
PROVIDERS: PCP Internal Medicine; Visit Provider Hospitalist
DX: J44.9 Chronic obstructive pulmonary disease, unspecified (principal); G47.33 Obstructive sleep apnea (adult) (pediatric); I50.23 Acute on chronic systolic (congestive) heart failure; J43.2 Centrilobular emphysema; R60.0 Localized edema; J96.11 Chronic respiratory failure with hypoxia; J96.12 Chronic respiratory failure with hypercapnia; I27.20 Pulmonary hypertension, unspecified; Z99.11 Dependence on respirator [ventilator] status
CPT/HCPCS: 36415; 80048; 82803; 83880; 85025; 85652; 94618; 99212

== ENCOUNTER 2024-03-15 11:00 | Outpatient (REF) | payer MEDICARE, SELFPAY ==
[2024-03-15 12:02] LABS: MANUAL DIFF FLAG NO
[2024-03-15 12:21] LABS: VBG Base Excess 10.6 mmol/L; VBG pCO2 59 mmHg; VBG pO2 34 mmHg
[2024-03-15 12:22] LABS: VBG HCO3 37 mmol/L (22-26); Venous Blood Gas Refer to POC result
[2024-03-15 12:29] LABS: Basophils Percent Auto 0.3 % (0-2); Eosinophils Absolute Auto 0.2 X10*3/uL (0.0-0.4); Eosinophils Percent Auto 2.5 % (0-4); Hematocrit 32.9 % (37.0-47.0); Hemoglobin 10.5 g/dl (12.0-16.0); Imm Gran Abs Auto 0.03 X10*3/uL (0.00-0.03); Imm Gran Pct Auto 0.5 % (0.0-0.4); Lymphocytes Absolute Auto 1.1 X10*3/uL (1.2-4.9); Lymphocytes Percent Auto 16.5 % (20-40); Mean Corpuscular HGB Conc 31.9 g/dl (31.0-35.0); Mean Corpuscular Hemoglobin 30.8 pg (27.0-33.0); Mean Corpuscular Volume 96.5 fL (80.0-98.0); Mean Platelet Volume 11.7 fL (9.4-12.3); Monocytes Absolute Auto 0.6 X10*3/uL (0.1-1.2); Monocytes Percent Auto 8.6 % (2-11); Neutrophils Absolute Auto 4.6 x10*3/uL (2.0-8.3); Neutrophils Percent Auto 71.6 % (45-73); Platelet Count 228 X10*3/uL (160-400); Red Blood Count 3.41 X10*6/uL (4.20-5.50); Red Cell Distribution Width 14.1 % (11.0-16.0); White Blood Count 6.4 X10*3/uL (4.8-10.8)
[2024-03-15 12:53] LABS: Estimated Average Glucose 220 mg/dL; Hemoglobin A1c % 9.3 % (<6.0)
[2024-03-15 12:59] LABS: Anion Gap 16 (12-20); Blood Urea Nitrogen 53 mg/dL (9-16); Calcium 6.9 mg/dL (8.4-10.2); Carbon Dioxide 32 mmol/L (22-29); Chloride 98 mmol/L (96-108); Estimated Glomerular Filt Rate 23; Glucose Random 246 mg/dL (60-115); Potassium 4.1 mmol/L (3.3-5.1); Sodium 142 mmol/L (135-145)
[2024-03-15 13:06] LABS: B Type Natriuretic Peptide 263 pg/mL (<100)
[2024-03-15 13:10] LABS: Erythrocyte Sedimentation Rate 82 MM/HR (0-20)
[2024-03-15 14:15] LABS: VBG Base Excess 10.6 mmol/L; VBG HCO3 37 mmol/L (22-26); VBG pCO2 59 mmHg; VBG pO2 34 mmHg
== END 2024-03-15 11:01 | disposition home or self-care (01) ==
LOC: HO.LAB 11:00
PROVIDERS: PCP Internal Medicine; Visit Provider Hospitalist
DX: J96.11 Chronic respiratory failure with hypoxia (principal); J96.12 Chronic respiratory failure with hypercapnia; J43.2 Centrilobular emphysema; I27.20 Pulmonary hypertension, unspecified; I50.23 Acute on chronic systolic (congestive) heart failure; D64.9 Anemia, unspecified; G47.33 Obstructive sleep apnea (adult) (pediatric); R60.0 Localized edema; E11.9 Type 2 diabetes mellitus without complications; B02.29 Other postherpetic nervous system involvement; Z99.89 Dependence on other enabling machines and devices; Z99.81 Dependence on supplemental oxygen
CPT/HCPCS: 36415; 80048; 82803; 83036; 83880; 85025; 85652; 99212

== ENCOUNTER 2024-03-15 11:00 | Outpatient (AMB) | payer MEDICARE, SELFPAY ==
[2024-03-15 11:01] VITALS: BP 157/64; PULSE 99; O2SAT 91; BMI 44.4
--- NOTE | 2024-03-15 11:01 | MHC.OFFVIS ---
Vital Signs 03/15/24 11:01 Height 5 ft 1 in Weight 235 lb BMI 44.4 BP 157/64 H Blood Pressure Location Lt brachial Position Sitting Pulse 99 Pulse Source Doppler Pulse Oximetry (%) 91 L Oxygen Delivery Method Room Air Intake Visit Reasons: copd Allergies erythromycin base Allergy (Severe, Verified 10/04/23 10:48) Rash ciprofloxacin [From Cipro] Adverse Reaction (Severe, Verified 10/04/23 10:48) Rash HPI Comments Details: The patient is a 79 year woman with a known history of COPD, ROBERTO on CPAP, in addition to congestive heart failure been complaining of worsening dyspnea on exertion the patient states that several years ago she was admitted to [facility] with a episode of decompensated heart failure. During that time the patient was placed on oxygen and was placed on cardioprotective medications and diuretics. Ultimately she was discharged on oxygen. Therefore she has been on oxygen now for several years getting his at her oxygen to her [employer], [employer]. Her family has also noticed that she has had significant wheezing and shortness of breath. She had been evaluated by Pulmonary in the past although I do not have those notes. She has not had pulmonary function studies in several years. She did follow-up with her primary care doctor who noted that she had been having significant wheezing and she was given a course of prednisone and also a sample of Stiolto. She completed the prednisone and she did feel little partial improvement. She continues on the Stiolto although is difficult for her to use. She had been on Anoro inhaler in the past but was 300 dollars extremely expensive and she could not afford using that on a monthly basis. Her friend did have a nebulizer and did provide the nebulizer for on treatment because she was wheezy and she did have improvement of her symptoms. She is wondering if a nebulizer could be helpful. Therefore she was referred to Pulmonary for further evaluation. During the visit we did go for 6 minutes walk test on the patient quickly desaturated on room air. She did well with a conserving device so therefore I will see resend a prescription to her [employer] in order for her to get be cylinders with a conserving valve with 2 L pulse. This will provide her better portability outside of the home. The patient also family the are also interested in getting a portable oxygen concentrator. Explained to them that this would be something that could be done but is going to take a significantly long time and sometimes it could be more than a year. Therefore she can start with the cylinders and try the pulse valve to see how this is effective for her. We can also provide her with a nebulizer and provided with medications in order for her to use it on a regular basis. The in the meantime will also have her undergo pulmonary function studies and a chest x-ray and she will follow up. the patient is also working with Cardiology. She did undergo an echocardiogram and now scheduled to undergo a nuclear stress test in the coming days. I do not have those results. 01/25/2023 the patient is here for pulmonary follow-up visit. Since we last spoke the patient did develop worsening shortness of breath and cough and wheezing. She did call in and we Center prednisone antibiotics. The prednisone did help her breathing significantly. Now she has completed the course. She still having shortness of breath. She did qualify for oxygen with activity during the last visit. Will go ahead and make sure that [facility] provides her with portable tanks ideally be sending the heart to be able to carry the oxygens outside of the home easier. In addition to this the patient has been using the Xopenex and also the budesonide twice a day. This has been partially helpful. We can also add muscarinic antagonist to the regimen and is no better. In addition to this will request blood work including allergy testing to assess to see if she is a good candidate for biologic therapy. We did review her pulmonary function studies demonstrating a moderate to severe obstructive lung disease in this case likely uncontrolled asthma and also the of lotion of COPD. Apparently the patient did have an echocardiogram done. I do not have the results but based on the daughter's description it appears that she has a component of pulmonary hypertension. Apparently her cardiac status is otherwise stable. It is possible that she has pulmonary hypertension secondary to her history of COPD and also some obstructive sleep apnea. Although will have to further address that to make sure the patient does not have any of the other groups. Patient is definitely volume overloaded this time she needs a additional diuresis. 05/19/2023 the patient is here for hospital follow-up visit. The patient has COPD and also has been on CPAP. She was admitted to the [facility] hospital with significant discomfort. She was having significant shortness of breath. While she was there she developed respiratory failure. She was transferred over to [facility] required BiPAP. Even after BiPAP she has evidence of chronic hypercarbic respiratory failure secondary to her COPD. The patient has been on maximum respiratory therapy for COPD. At this point the patient needs to restart her on a noninvasive ventilator. The patient carries a poor prognosis with significant hypercarbia. She also carries a high risk of readmissions to the hospital. For that reason the patient needs to start a noninvasive ventilator. Noninvasive ventilator were improve her gas exchange and would also improve her prognosis and decrease hospitalizations. I spoken to the family and they are agreeable to this will start the process in order to get her on an astral noninvasive ventilator at this time. 07/08/2023 the patient is here for a pulmonary follow-up visit. Overall the patient has been doing better from a respiratory status. She did start the astral noninvasive ventilator. Is been very effective for her. She does use it every night. The therapy has been effective am beneficial. She is also been using her oxygen. The patient has been noticing increasing shortness of breath. Recently had a big [place] festival and she made a lot of food. There was some dietary indiscretions unfortunately. The patient noticed that her blood pressure went up and also significant weight gain. She is been working closely with cardiology to increase her diuretic safely. She does have blood work scheduled for tomorrow for additional evaluation of electrolytes and kidney function. If she does not improve there is mention of in-hospital therapy. We did have her undergo a chest x-ray today. No focal disease although appears to be demonstrating evidence of pulmonary vascular congestion. the patient will continue the diuretics as per Cardiology. If the patient is not better she will call and we can consider treating her for an ongoing lower respiratory process. But, right now she is not having any significant cough chest congestion or wheezing. 10/04/2023 the patient is here for a pulmonary follow-up visit. The patient has been complaining of worsening shortness of breath. She has gained close to 20 lb since her last visit. She did call out to Cardiology to see if her a diuretic can be adjusted. She was increased on 20 mg of torsemide to 40 mg recently. Still she has a lot of swelling. She has crackles on examination of concerned she is in heart failure. The patient is also using her oxygen. At nighttime she went back to her CPAP because is been hard to tolerate the noninvasive ventilator. I did explain to her that she needs to use her noninvasive ventilator because of her significant hypercarbia. Today before she goes I have her get blood work including a venous blood gas to assess her CO2 and make sure that she does not have any acute components to her hypercarbia. The patient will also have her kidney function checked checked and I will send the blood work over to her [employer] office in order for them to adjust her diuretics. The patient may benefit from a purple of some type to make sure that she can increased her diuretics to help her with her significant volume overload status. She understands that when her volume increases her pulmonary pressures and a respiratory symptoms also worsen. I will check a lot a prescription for adjustments to her noninvasive ventilator, astral. I did reach out to [facility] to make sure that they go over to her house to adjust the machine accordingly. 03/15/2024 the patient is here for a pulmonary follow-up visit. Overall she has been doing better. The patient has been tolerating her noninvasive ventilator every night. The noninvasive ventilator has been affecting beneficial. She was able to tolerated once he was further adjusted. We did recheck a venous blood gas in her CO2 is already significantly improved. she has not had to use her oxygen as regularly. She does monitor her oxygen levels. However, for the last few days she has been noticed some some increased weight gain. Most likely had to do with mother's day which she was eating different types of food. She is also noticed some increased lower extremity edema. Respiratory exam she is doing okay. No significant crackles appreciated. We did review her previous blood work that she had back in October. Her hemoglobin had dropped from 13 to 10.5. The patient states that she was supposed to have blood work done but she has not done as of yet. In addition to that on the diuretic therapy she needs to be careful with her kidney function. Will go ahead and request blood work since she is here today. Will go ahead and send him over to her primary care doctor's office. For now she is going to continue with current respiratory therapy. she will continue with diuresis as tolerated. She has had issues with blood pressure when she we closely working with her [employer] office and primary care doctor in order to improve her blood pressure control. other issues that she is complained about his what appears to be post herpetic neuralgia causing significant pain down her leg. In addition to that she did develop significant amount of psoriasis after getting vaccinated. [facility] Medical History (Updated 03/15/24 @ 11:28 by Jeffery Jackson MD) Anemia Post herpetic neuralgia Pulmonary hypertension Asthma CHF (congestive heart failure) Chronic respiratory failure ROBERTO (obstructive sleep apnea) Extremity edema COPD (chronic obstructive pulmonary disease) Social History Patient Tobacco Use Status: Never used Tobacco Review of Systems Const Reports daytime sleepiness, Reports fatigue and Reports weight gain Eyes Denies change in vision ENT Denies nasal congestion Card Denies chest pain, Reports leg edema and Reports dyspnea on exertion Resp Reports cough, Reports dyspnea on exertion and Denies wheezing GI Reports no additional complaints Musc Reports no additional complaints and Reports myalgias Skin/Breast Reports lesions and Reports rash Neuro Reports no additional complaints Endo Reports fatigue Clint/Lymph Denies easy bleeding and Denies easy bruising Aller/Immun Denies wheezing Physical Exam Vital Signs: Last Vital Signs Pulse 99 03/15/24 11:01 BP 157/64 H 03/15/24 11:01 Pulse Ox 91 L 03/15/24 11:01 Oxygen Delivery Method Room Air 03/15/24 11:01 BMI result Body Mass Index 44.4 Const General: comfortable HEENT Head: Yes normocephalic Eyes General: appearance normal, both eyes and all related structures Neck Neck: Yes supple Chest Chest palpation & inspection: normal inspection of the chest Resp Effort & Inspection: normal respiratory effort Auscultation: no rales, no wheezes and diminished lung sounds Cardio Rate: regular rate Rhythm: regular rhythm Heart sounds: S1 normal heart sound present and S2 normal heart sound present GI Palpation (GI): Soft to palpation Skin General skin exam: no rashes or lesions noted Extrem General: Yes edema Assessment & Plan Assessment & Plan (1) CHF (congestive heart failure): Code(s): I50.9 - Heart failure, unspecified Category: Medical Qualifiers: Heart failure chronicity: acute on chronic Heart failure type: systolic Qualified Code(s): I50.23 - Acute on chronic systolic (congestive) heart failure (2) COPD (chronic obstructive pulmonary disease): Comment: moderate to severe Code(s): J44.9 - Chronic obstructive pulmonary disease, unspecified Category: Medical Qualifiers: COPD type: emphysema Emphysema type: centrilobular Qualified Code(s): J43.2 - Centrilobular emphysema (3) Extremity edema: Code(s): R60.0 - Localized edema Category: Medical (4) Chronic respiratory failure: Code(s): J96.10 - Chronic respiratory failure, unspecified whether with hypoxia or hypercapnia Category: Medical Qualifiers: Respiratory failure complication: hypoxia and hypercapnia Qualified Code(s): J96.11 - Chronic respiratory failure with hypoxia; J96.12 - Chronic respiratory failure with hypercapnia (5) Pulmonary hypertension: Comment: Likely WHO group 2&3 Code(s): I27.20 - Pulmonary hypertension, unspecified Category: Medical (6) Post herpetic neuralgia: Code(s): B02.29 - Other postherpetic nervous system involvement Category: Medical (7) Anemia: Code(s): D64.9 - Anemia, unspecified Category: Medical Plan continue nebulizer with xopenex and budesonide continue oxygen continue nocturnal oxygen use continue Astral non invasive ventilator, bloodgas a lot better Diuresis as tolerated lidoderm patch to affected area Bloodwork F/U 4 months Orders: Orders Hemoglobin A1c Today E11.9 - Type 2 diabetes mellitus without complications Venous Blood Gas Today D64.9 - Anemia, unspecified, G47.33 - Obstructive sleep apnea (adult) (pediatric), I27.20 - Pulmonary hypertension, unspecified, I50.23 - Acute on chronic systolic (congestive) heart failure Complete Blood Count Auto Diff Today D64.9 - Anemia, unspecified, G47.33 - Obstructive sleep apnea (adult) (pediatric), I27.20 - Pulmonary hypertension, unspecified, I50.23 - Acute on chronic systolic (congestive) heart failure Basic Metabolic Panel Today D64.9 - Anemia, unspecified, G47.33 - Obstructive sleep apnea (adult) (pediatric), I27.20 - Pulmonary hypertension, unspecified, I50.23 - Acute on chronic systolic (congestive) heart failure B Type Natriuretic Peptide Today D64.9 - Anemia, unspecified, G47.33 - Obstructive sleep apnea (adult) (pediatric), I27.20 - Pulmonary hypertension, unspecified, I50.23 - Acute on chronic systolic (congestive) heart failure Erythrocyte Sedimentation Rate Today D64.9 - Anemia, unspecified, G47.33 - Obstructive sleep apnea (adult) (pediatric), I27.20 - Pulmonary hypertension, unspecified, I50.23 - Acute on chronic systolic (congestive) heart failure Medications: New lidocaine 5% (Lidoderm) leave on most painful area for up to 12 hrs 1 patch topical DAILY 30 days 30 ea 4RF B02.29 - Other postherpetic nervous system involvement Coding Level of Care Code Est Pt Level 4 (08742) Diagnoses Acute on chronic systolic congestive heart failure I50.23 Heart failure chronicity: acute on chronic Heart failure type: systolic Centrilobular emphysema J43.2 COPD type: emphysema Emphysema type: centrilobular Extremity edema R60.0 Chronic respiratory failure with hypoxia and hypercapnia J96.11; J96.12 Respiratory failure complication: hypoxia and hypercapnia Pulmonary hypertension I27.20 Post herpetic neuralgia B02.29 Anemia D64.9 Time Spent (min) 18
== END 2024-03-15 11:29 | disposition home or self-care (01) ==
PROVIDERS: PCP Internal Medicine; Visit Provider Hospitalist
DX: I50.23 Acute on chronic systolic (congestive) heart failure (principal); J43.2 Centrilobular emphysema; R60.0 Localized edema; J96.11 Chronic respiratory failure with hypoxia; J96.12 Chronic respiratory failure with hypercapnia; I27.20 Pulmonary hypertension, unspecified; B02.29 Other postherpetic nervous system involvement; D64.9 Anemia, unspecified
CPT/HCPCS: 99214

== ENCOUNTER 2024-06-27 12:31 | Outpatient (AMB) | payer MEDICARE, SELFPAY ==
[2024-06-27 13:05] VITALS: PULSE 82; O2SAT 94; BMI 42.1
--- NOTE | 2024-06-27 13:05 | A.OFFVIS_ITS ---
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 Required: No Allergies erythromycin base Allergy (Severe, Verified 06/27/24 13:10) Rash amoxicillin Adverse Reaction (Severe, Verified 06/27/24 13:10) Unknown ciprofloxacin [From Cipro] Adverse Reaction (Severe, Verified 06/27/24 13:10) Rash vancomycin Adverse Reaction (Severe, Verified 06/27/24 13:10) tao HPI Comments Details: The patient is a 79 year woman with a known history of COPD, ROBERTO on CPAP, in addition to congestive heart failure been complaining of worsening dyspnea on exertion the patient states that several years ago she was admitted to [facility] with a episode of decompensated heart failure. During that time the patient was placed on oxygen and was placed on cardioprotective medications and diuretics. Ultimately she was discharged on oxygen. Therefore she has been on oxygen now for several years getting his at her oxygen to her [employer] company, [employer]. Her family has also noticed that she has had significant wheezing and shortness of breath. She had been evaluated by Pulmonary in the past although I do not have those notes. She has not had pulmonary function studies in several years. She did follow-up with her primary care doctor who noted that she had been having significant wheezing and she was given a course of prednisone and also a sample of Stiolto. She completed the prednisone and she did feel little partial improvement. She continues on the Stiolto although is difficult for her to use. She had been on Anoro inhaler in the past but was 300 dollars extremely expensive and she could not afford using that on a monthly basis. Her friend did have a nebulizer and did provide the nebulizer for on treatment because she was wheezy and she did have improvement of her symptoms. She is wondering if a nebulizer could be helpful. Therefore she was referred to Pulmonary for further evaluation. During the visit we did go for 6 minutes walk test on the patient quickly desaturated on room air. She did well with a conserving device so therefore I will see resend a prescription to her [employer] company, [employer] in order for her to get be cylinders with a conserving valve with 2 L pulse. This will provide her better portability outside of the home. The patient also family the are also interested in getting a portable oxygen concentrator. Explained to them that this would be something that could be done but is going to take a significantly long time and sometimes it could be more than a year. Therefore she can start with the cylinders and try the pulse valve to see how this is effective for her. We can also provide her with a nebulizer and provided with medications in order for her to use it on a regular basis. The in the meantime will also have her undergo pulmonary function studies and a chest x-ray and she will follow up. the patient is also working with Cardiology. She did undergo an echocardiogram and now scheduled to undergo a nuclear stress test in the coming days. I do not have those results. 01/25/2023 the patient is here for pulmonary follow-up visit. Since we last spoke the patient did develop worsening shortness of breath and cough and wheezing. She did call in and we Center prednisone antibiotics. The prednisone did help her breathing significantly. Now she has completed the course. She still having shortness of breath. She did qualify for oxygen with activity during the last visit. Will go ahead and make sure that [facility] provides her with portable tanks ideally be sending the heart to be able to carry the oxygens outside of the home easier. In addition to this the patient has been using the Xopenex and also the budesonide twice a day. This has been partially helpful. We can also add muscarinic antagonist to the regimen and is no better. In addition to this will request blood work including allergy testing to assess to see if she is a good candidate for biologic therapy. We did review her pulmonary function studies demonstrating a moderate to severe obstructive lung disease in this case likely uncontrolled asthma and also the of lotion of COPD. Apparently the patient did have an echocardiogram done. I do not have the results but based on the daughter's description it appears that she has a component of pulmonary hypertension. Apparently her cardiac status is otherwise stable. It is possible that she has pulmonary hypertension secondary to her history of COPD and also some obstructive sleep apnea. Although will have to further address that to make sure the patient does not have any of the other groups. Patient is definitely volume overloaded this time she needs a additional diuresis. 05/19/2023 the patient is here for hospital follow-up visit. The patient has COPD and also has been on CPAP. She was admitted to the [facility] hospital with significant discomfort. She was having significant shortness of breath. While she was there she developed respiratory failure. She was transferred over to [facility] required BiPAP. Even after BiPAP she has evidence of chronic hypercarbic respiratory failure secondary to her COPD. The patient has been on maximum respiratory therapy for COPD. At this point the patient needs t o restart her on a noninvasive ventilator. The patient carries a poor prognosis with significant hypercarbia. She also carries a high risk of readmissions to the hospital. For that reason the patient needs to start a noninvasive ventilator. Noninvasive ventilator were improve her gas exchange and would also improve her prognosis and decrease hospitalizations. I spoken to the family and they are agreeable to this will start the process in order to get her on an astral noninvasive ventilator at this time. 07/08/2023 the patient is here for a pulmonary follow-up visit. Overall the patient has been doing better from a respiratory status. She did start the astral noninvasive ventilator. Is been very effective for her. She does use it every night. The therapy has been effective am beneficial. She is also been using her oxygen. The patient has been noticing increasing shortness of breath. Recently had a big [employer] [place] festival and she made a lot of food. There was some dietary indiscretions unfortunately. The patient noticed that her blood pressure went up and also significant weight gain. She is been working closely with cardiology to increase her diuretic safely. She does have blood work scheduled for tomorrow for additional evaluation of electrolytes and kidney function. If she does not improve there is mention of in-hospital therapy. We did have her undergo a chest x-ray today. No focal disease although appears to be demonstrating evidence of pulmonary vascular congestion. the patient will continue the diuretics as per Cardiology. If the patient is not better she will call and we can consider treating her for an ongoing lower respiratory process. But, right now she is not having any significant cough chest congestion or wheezing. 10/04/2023 the patient is here for a pulmonary follow-up visit. The patient has been complaining of worsening shortness of breath. She has gained close to 20 lb since her last visit. She did call out to Cardiology to see if her a diuretic can be adjusted. She was increased on 20 mg of torsemide to 40 mg recently. Still she has a lot of swelling. She has crackles on examination of concerned she is in heart failure. The patient is also using her oxygen. At nighttime she went back to her CPAP because is been hard to tolerate the noninvasive ventilator. I did explain to her that she needs to use her noninv asive ventilator because of her significant hypercarbia. Today before she goes I have her get blood work including a venous blood gas to assess her CO2 and make sure that she does not have any acute components to her hypercarbia. The patient will also have her kidney function checked checked and I will send the blood work over to her avionics engineer in order for them to adjust her diuretics. The patient may benefit from a purple of some type to make sure that she can increased her diuretics to help her with her significant volume overload status. She understands that when her volume increases her pulmonary pressures and a respiratory symptoms also worsen. I will check a lot a prescription for adjustments to her noninvasive ventilator, astral. I did reach out to [facility] to make sure that they go over to her house to adjust the machine accordingly. 03/15/2024 the patient is here for a pulmonary follow-up visit. Overall she has been doing better. The patient has been tolerating her noninvasive ventilator every night. The noninvasive ventilator has been affecting beneficial. She was able to tolerated once he was further adjusted. We did recheck a venous blood gas in her CO2 is already significantly improved. she has not had to use her oxygen as regularly. She does monitor her oxygen levels. However, for the last few days she has been noticed some some increased weight gain. Most likely had to do with mother's day which she was eating different types of food. She is also noticed some increased lower extremity edema. Respiratory exam she is doing okay. No significant crackles appreciated. We did review her previous blood work that she had back in October. Her hemoglobin had dropped from 13 to 10.5. The patient states that she was supposed to have blood work done but she has not done as of yet. In addition to that on the diuretic therapy she needs to be careful with her kidney function. Will go ahead and request blood work since she is here today. Will go ahead and send him over to her primary care doctor's office. For now she is going to continue with current respiratory therapy. she will continue with diuresis as tolerated. She has had issues with blood pressure when she we closely working with her avionics engineer and primary care doctor in order to improve her blood pressure control. other issues that she is complained about his what appears to be post herpetic neuralgia causing significant pain down her leg. In addition to that she did develop significant amount of psoriasis after getting vaccinated. 06/27/2024 the patient is here for a pulmonary follow-up visit. Overall the patient is doing well from a respiratory status. She continues to use the oxygen with good effect. In addition to that she has been using noninvasive ve ntilator. . She is being followed closely by primary care in addition to Nephrology. We did review her recent blood work that she had a [facility]. It appears that her BUN now is above 100. The last time that was measured at [place] it was only the 50s. Therefore, this is significantly elevated. The patient has been on multiple about diuretics. I did recommend she can hold her torsemide she to she speaks to Nephrology. The patient does appear to have some degree of asterixis on examination. I am not sure it does although if that is an early sign of uremia. No evidence of any active bleeding at this time. Seems like a mentation is stable. [facility] Medical History (Updated 06/27/24 @ 13:13 by Jeffery Jackson MD) Anemia Post herpetic neuralgia Pulmonary hypertension Asthma CHF (congestive heart failure) Chronic respiratory failure ROBERTO (obstructive sleep apnea) Extremity edema COPD (chronic obstructive pulmonary disease) Social History Patient Tobacco Use Status: Never used Tobacco Review of Systems Const Reports fatigue and Reports weight gain Eyes Denies change in vision ENT Denies nasal congestion Card Denies chest pain, Reports leg edema and Reports dyspnea on exertion Resp Reports cough, Reports dyspnea on exertion and Denies wheezing GI Reports no additional complaints Musc Reports no additional complaints and Reports myalgias Skin/Breast Reports lesions and Reports rash Neuro Reports tremor(s) Endo Reports fatigue Clint/Lymph Denies easy bleeding and Denies easy bruising Aller/Immun Denies wheezing Physical Exam Vital Signs: Last Vital Signs Pulse 82 06/27/24 13:05 Pulse Ox 94 06/27/24 13:05 Oxygen Delivery Method Room Air 06/27/24 13:05 BMI result Body Mass Index 42.1 Const General: comfortable HEENT Head: Yes normocephalic Eyes General: appearance normal, both eyes and all related structures Neck Neck: Yes supple Chest Chest palpation & inspection: normal inspection of the chest Resp Effort & Inspection: normal respiratory effort Auscultation: no rales, no wheezes and diminished lung sounds Cardio Rate: regular rate Rhythm: regular rhythm Heart sounds: S1 normal heart sound present and S2 normal heart sound present GI Palpation (GI): Soft to palpation Skin General skin exam: no rashes or lesions noted Extrem General: Yes edema Assessment & Plan Assessment & Plan (1) CHF (congestive heart failure): Code(s): I50.9 - Heart failure, unspecified Category: Medical Qualifiers: Heart failure chronicity: acute on chronic Heart failure type: systolic Qualified Code(s): I50.23 - Acute on chronic systolic (congestive) heart failure (2) COPD (chronic obstructive pulmonary disease): Comment: moderate to severe Code(s): J44.9 - Chronic obstructive pulmonary disease, unspecified Category: Medical Qualifiers: COPD type: emphysema Emphysema type: centrilobular Qualified Code(s): J43.2 - Centrilobular emphysema (3) Extremity edema: Code(s): R60.0 - Localized edema Category: Medical (4) Chronic respiratory failure: Code(s): J96.10 - Chronic respiratory failure, unspecified whether with hypoxia or hypercapnia Category: Medical Qualifiers: Respiratory failure complication: hypoxia and hypercapnia Qualified Code(s): J96.11 - Chronic respiratory failure with hypoxia; J96.12 - Chronic respiratory failure with hypercapnia (5) Pulmonary hypertension: Comment: Likely WHO group 2&3 Code(s): I27.20 - Pulmonary hypertension, unspecified Category: Medical (6) Post herpetic neuralgia: Code(s): B02.29 - Other postherpetic nervous system involvement Category: Medical (7) Anemia: Code(s): D64.9 - Anemia, unspecified Category: Medical Qualifiers: Iron deficiency anemia type: unspecified iron deficiency Plan continue nebulizer with xopenex and budesonide continue oxygen continue nocturnal oxygen use continue Astral non invasive ventilator, bloodgas a lot better hold torsemide until discussess with nephrology lidoderm patch to affected area F/U 6-8 months Medications: New lidocaine 5% (Lidoderm) leave on most painful area for up to 12 hrs 1 patch topical DAILY 30 ea 6RF 30 days B02.29 - Other postherpetic nervous system involvement Coding Level of Care Code Est Pt Level 4 (26426) Complex EM visit Add On G2211 Diagnoses Acute on chronic systolic congestive heart failure I50.23 Heart failure chronicity: acute on chronic Heart failure type: systolic Centrilobular emphysema J43.2 COPD type: emphysema Emphysema type: centrilobular Extremity edema R60.0 Chronic respiratory failure with hypoxia and hypercapnia J96.11; J96.12 Respiratory failure complication: hypoxia and hypercapnia Pulmonary hypertension I27.20 Post herpetic neuralgia B02.29 Anemia D64.9 Iron deficiency anemia type: unspecified iron deficiency Time Spent (min) 16
== END 2024-06-27 13:28 | disposition home or self-care (01) ==
PROVIDERS: PCP Internal Medicine; Visit Provider Hospitalist
DX: I50.23 Acute on chronic systolic (congestive) heart failure (principal); J43.2 Centrilobular emphysema; R60.0 Localized edema; J96.11 Chronic respiratory failure with hypoxia; J96.12 Chronic respiratory failure with hypercapnia; I27.20 Pulmonary hypertension, unspecified; B02.29 Other postherpetic nervous system involvement; D64.9 Anemia, unspecified
CPT/HCPCS: 99214; G2211

== ENCOUNTER → 2024-06-27 12:31 | Outpatient (BNVA) | payer MEDICARE, SELFPAY | PROVIDERS: PCP Internal Medicine; Visit Provider Hospitalist | DX: I50.23 Acute on chronic systolic (congestive) heart failure (principal); B02.29 Other postherpetic nervous system involvement; I27.20 Pulmonary hypertension, unspecified; J43.2 Centrilobular emphysema; J96.11 Chronic respiratory failure with hypoxia; J96.12 Chronic respiratory failure with hypercapnia; R60.0 Localized edema; D64.9 Anemia, unspecified | CPT/HCPCS: 99212 ==

== ENCOUNTER 2025-01-26 15:38 | Outpatient (AMB) | payer MEDICARE, SELFPAY ==
[2025-01-26 15:44] VITALS: BP 112/60; PULSE 90; O2SAT 95; BMI 42.5
--- NOTE | 2025-01-26 15:44 | A.OFFVIS_ITS ---
Vital Signs 01/26/25 15:44 Height 5 ft 1 in Weight 225 lb BMI 42.5 BP 112/60 Blood Pressure Location Lt brachial Position Sitting Pulse 90 Pulse Source Pulse Oximeter Pulse Oximetry (%) 95 Oxygen Delivery Method Room Air Intake Visit Reasons: COPD Allergies erythromycin base Allergy (Severe, Verified 01/26/25 15:47) Rash amoxicillin Adverse Reaction (Severe, Verified 01/26/25 15:47) Unknown ciprofloxacin [From Cipro] Adverse Reaction (Severe, Verified 01/26/25 15:47) Rash morphine Adverse Reaction (Severe, Verified 01/26/25 15:47) rash vancomycin Adverse Reaction (Severe, Verified 01/26/25 15:47) tao HPI Comments Details: The patient is a 79 year woman with a known history of COPD, ROBERTO on CPAP, in addition to congestive heart failure been complaining of worsening dyspnea on exertion the patient states that several years ago she was admitted to [facility] with a episode of decompensated heart failure. During that time the patient was placed on oxygen and was placed on cardioprotective medications and diuretics. Ultimately she was discharged on oxygen. Therefore she has been on oxygen now for several years getting his at her oxygen to her [employer] company, [employer]. Her family has also noticed that she has had significant wheezing and shortness of breath. She had been evaluated by Pulmonary in the past although I do not have those notes. She has not had pulmonary function studies in several years. She did follow-up with her primary care doctor who noted that she had been having significant wheezing and she was given a course of prednisone and also a sample of Stiolto. She completed the prednisone and she did feel little partial improvement. She continues on the Stiolto although is difficult for her to use. She had been on Anoro inhaler in the past but was 300 dollars extremely expensive and she could not afford using that on a monthly basis. Her friend did have a nebulizer and did provide the nebulizer for on treatment because she was wheezy and she did have improvement of her symptoms. She is wondering if a nebulizer could be helpful. Therefore she was referred to Pulmonary for further evaluation. During the visit we did go for 6 minutes walk test on the patient quickly desaturated on room air. She did well with a conserving device so therefore I will see resend a prescription to her [employer] company, [employer] in order for her to get be cylinders with a conserving valve with 2 L pulse. This will provide her better portability outside of the home. The patient also family the are also interested in getting a portable oxygen concentrator. Explained to them that this would be something that could be done but is going to take a significantly long time and sometimes it could be more than a year. Therefore she can start with the cylinders and try the pulse valve to see how this is effective for her. We can also provide her with a nebulizer and provided with medications in order for her to use it on a regular basis. The in the meantime will also have her undergo pulmonary function studies and a chest x-ray and she will follow up. the patient is also working with Cardiology. She did undergo an echocardiogram and now scheduled to undergo a nuclear stress test in the coming days. I do not have those results. 01/25/2023 the patient is here for pulmonary follow-up visit. Since we last spoke the patient did develop worsening shortness of breath and cough and wheezing. She did call in and we Center prednisone antibiotics. The prednisone did help her breathing significantly. Now she has completed the course. She still having shortness of breath. She did qualify for oxygen with activity during the last visit. Will go ahead and make sure that [facility] provides her with portable tanks ideally be sending the heart to be able to carry the oxygens outside of the home easier. In addition to this the patient has been using the Xopenex and also the budesonide twice a day. This has been partially helpful. We can also add muscarinic antagonist to the regimen and is no better. In addition to this will request blood work including allergy testing to assess to see if she is a good candidate for biologic therapy. We did review her pulmonary function studies demonstrating a moderate to severe obstructive lung disease in this case likely uncontrolled asthma and also the of lotion of COPD. Apparently the patient did have an echocardiogram done. I do not have the results but based on the daughter's description it appears that she has a component of pulmonary hypertension. Apparently her cardiac status is otherwise stable. It is possible that she has pulmonary hypertension secondary to her history of COPD and also some obstructive sleep apnea. Although will have to further address that to make sure the patient does not have any of the other groups. Patient is definitely volume overloaded this time she needs a additio nal diuresis. 05/19/2023 the patient is here for hospital follow-up visit. The patient has COPD and also has been on CPAP. She was admitted to the [facility] with significant discomfort. She was having significant shortness of breath. While she was there she developed respiratory failure. She was transferred over to [facility] required BiPAP. Even after BiPAP she has evidence of chronic hypercarbic respiratory failure secondary to her COPD. The patient has been on maximum respiratory therapy for COPD. At this point the patient needs to restart her on a noninvasive ventilator. The patient carries a poor prognosis with significant hypercarbia. She also carries a high risk of readmissions to the hospital. For that reason the patient needs to start a noninvasive ventilator. Noninvasive ventilator were improve her gas exchange and would also improve her prognosis and decrease hospitalizations. I spoken to the family and they are agreeable to this will start the process in order to get her on an astral noninvasive ventilator at this time. 07/08/2023 the patient is here for a pulmonary follow-up visit. Overall the patient has been doing better from a respiratory status. She did start the astral noninvasive ventilator. Is been very effective for her. She does use it every night. The therapy has been effective am beneficial. She is also been using her oxygen. The patient has been noticing increasing shortness of breath. Recently had a big [place] festival and she made a lot of food. There was some dietary indiscretions unfortunately. The patient noticed that her blood pressure went up and also significant weight gain. She is been working closely with cardiology to increase her diuretic safely. She does have blood work scheduled for tomorrow for additional evaluation of electrolytes and kidney function. If she does not improve there is mention of in-hospital therapy. We did have her undergo a chest x-ray today. No focal disease although appears to be demonstrating evidence of pulmonary vascular congestion. the patient will continue the diuretics as per Cardiology. If the patient is not better she will call and we can consider treating her for an ongoing lower respiratory process. But, right now she is not having any significant cough chest congestion or wheezing. 10/04/2023 the patient is here for a pulmonary follow-up visit. The patient has been complaining of worsening shortness of breath. She has gained close to 20 lb since her last visit. She did call out to Cardiology to see if her a diuretic can be adjusted. She was increased on 20 mg of torsemide to 40 mg recently. Still she has a lot of swelling. She has crackles on examination of concerned she is in heart failure. The patient is also using her oxygen. At nighttime she went back to her CPAP because is been hard to tolerate the noninvasive ventilator. I did explain to her that she needs to use her noninvasive ventilator because of her significant hypercarbia. Today before she goes I have her get blood work including a venous blood gas to assess her CO2 and make sure that she does not have any acute components to her hypercarbia. The patient will also have her kidney function checked checked and I will send the blood work over to her fiber optics engineer in order for them to adjust her diuretics. The patient may benefit from a purple of some type to make sure that she can increased her diuretics to help her with her significant volume overload status. She understands that when her volume increases her pulmonary pressures and a respiratory symptoms also worsen. I will check a lot a prescription for adjustments to her noninvasive ventilator, astral. I did reach out to [facility] to make sure that they go over to her house to adjust the machine accordingly. 03/15/2024 the patient is here for a pulmonary follow-up visit. Overall she has been doing better. The patient has been tolerating her noninvasive ventilator every night. The noninvasive ventilator has been affecting beneficial. She was able to tolerated once he was further adjusted. We did recheck a venous blood gas in her CO2 is already significantly improved. she has not had to use her oxygen as regularly. She does monitor her oxygen levels. However, for the last few days she has been noticed some some increased weight gain. Most likely had to do with mother's day which she was eating different types of food. She is also noticed some increased lower extremity edema. Respiratory exam she is doing okay. No significant crackles appreciated. We did review her previous blood work that she had back in October. Her hemoglobin had dropped from 13 to 10.5. The patient states that she was supposed to have blood work done but she has not done as of yet. In addition to that on the diuretic therapy she needs to be careful with her kidney function. Will go ahead and request blood work since she is here today. Will go ahead and send him over to her primary care doctor's office. For now she is going to continue with current respiratory therapy. she will continue with diuresis as tolerated. She has had issues with blood pressure when she we closely working with her fiber optics engineer and primary care doctor in order to improve her blood pressure control. other issues that she is complained about his what appears to be post herpetic neuralgia causing significant pain down her leg. In addition to that she did develop significant amount of psoriasis after getting vaccinated. 06/27/2024 the patient is here for a pulmonary follow-up visit. Overall the patient is doing well from a respiratory status. She continues to use the oxygen with good effect. In addition to that she has been using noninvasive ventilator. . She is being followed closely by primary care in addition to Nephrology. We did review her recent blood work that she had a [facility]. It appears that her BUN now is above 100. The last time that was measured at [place] it was only the 50s. Therefore, this is significantly elevated. The patient has been on multiple about diuretics. I did recommend she can hold her torsemide she to she speaks to Nephrology. The patient does appear to have some degree of asterixis on examination. I am not sure it does although if that is an early sign of uremia. No evidence of any active bleeding at this time. Seems like a mentation is stable. 01/26/2025 the patient is here for a pulmonary follow-up visit. She overall has been doing fair. She continues use a noninvasive ventilator at nighttime. He has been very helpful. However, is also very expensive. She has pain about 2 boxes month. We did call the [employer], Yan under going to see about helping her with a hardship form to see if she qualifies in order to minimize the expense. Otherwise she has not old BiPAP and we can see if we can adjusted to see she can not tolerated and see if this provides with the same relief without the significant cost. In addition to that we did provide paperwork to fill out for [employer] because she does have significant elements. The patient otherwise has continue her respiratory medications with good effect. She joel nues her oxygen also will good effect. Will continue the current respiratory regimen follow-up in the fall. She has any issues prior to that she will call for an earlier assessment. [facility] Medical History (Updated 06/27/24 @ 13:13 by Jeffery Jackson MD) Anemia Post herpetic neuralgia Pulmonary hypertension Asthma CHF (congestive heart failure) Chronic respiratory failure ROBERTO (obstructive sleep apnea) Extremity edema COPD (chronic obstructive pulmonary disease) Social History Patient Tobacco Use Status: Never used Tobacco Review of Systems Const Reports fatigue and Reports weight gain Eyes Denies change in vision ENT Denies nasal congestion Card Denies chest pain, Reports leg edema and Reports dyspnea on exertion Resp Reports cough, Reports dyspnea on exertion and Denies wheezing GI Reports no additional complaints Musc Reports no additional complaints and Reports myalgias Skin/Breast Reports lesions and Reports rash Neuro Reports tremor(s) Endo Reports fatigue Clint/Lymph Denies easy bleeding and Denies easy bruising Aller/Immun Denies wheezing Physical Exam Vital Signs: Last Vital Signs Pulse 90 01/26/25 15:44 BP 112/60 01/26/25 15:44 Pulse Ox 95 01/26/25 15:44 Oxygen Delivery Method Room Air 01/26/25 15:44 BMI result Body Mass Index 42.5 Const General: comfortable HEENT Head: Yes normocephalic Eyes General: appearance normal, both eyes and all related structures Neck Neck: Yes supple Chest Chest palpation & inspection: normal inspection of the chest Resp Effort & Inspection: normal respiratory effort Auscultation: no rales, no wheezes and diminished lung sounds Cardio Rate: regular rate Rhythm: regular rhythm Heart sounds: S1 normal heart sound present and S2 normal heart sound present GI Palpation (GI): Soft to palpation Skin General skin exam: no rashes or lesions noted Extrem General: Yes edema Assessment & Plan Assessment & Plan (1) CHF (congestive heart failure): Code(s): I50.9 - Heart failure, unspecified Category: Medical Qualifiers: Heart failure chronicity: acute on chronic Heart failure type: systolic Qualified Code(s): I50.23 - Acute on chronic systolic (congestive) heart failure (2) COPD (chronic obstructive pulmonary disease): Comment: moderate to severe Code(s): J44.9 - Chronic obstructive pulmonary disease, unspecified Category: Medical Qualifiers: COPD type: emphysema Emphysema type: centrilobular Qualified Code(s): J43.2 - Centrilobular emphysema (3) Extremity edema: Code(s): R60.0 - Localized edema Category: Medical (4) Chronic respiratory failure: Code(s): J96.10 - Chronic respiratory failure, unspecified whether with hypoxia or hypercapnia Category: Medical Qualifiers: Respiratory failure complication: hypoxia and hypercapnia Qualified Code(s): J96.11 - Chronic respiratory failure with hypoxia; J96.12 - Chronic respiratory failure with hypercapnia (5) Pulmonary hypertension: Comment: Likely WHO group 2&3 Code(s): I27.20 - Pulmonary hypertension, unspecified Category: Medical (6) Post herpetic neuralgia: Code(s): B02.29 - Other postherpetic nervous system involvement Category: Medical (7) Anemia: Code(s): D64.9 - Anemia, unspecified Category: Medical Qualifiers: Iron deficiency anemia type: unspecified iron deficiency Plan continue nebulizer with xopenex and budesonide continue oxygen continue nocturnal oxygen use continue Astral non invasive ventilator, bloodgas a lot better. Will look into fanancial hardship form. If not will consider going back on the BIPAP diuresis as tolerated lidoderm patch to affected area F/U 6-8 months Coding Level of Care Code Est Pt Level 4 (43448) Complex EM visit Add On G2211 Diagnoses Acute on chronic systolic congestive heart failure I50.23 Heart failure chronicity: acute on chronic Heart failure type: systolic Centrilobular emphysema J43.2 COPD type: emphysema Emphysema type: centrilobular Extremity edema R60.0 Chronic respiratory failure with hypoxia and hypercapnia J96.11; J96.12 Respiratory failure complication: hypoxia and hypercapnia Pulmonary hypertension I27.20 Post herpetic neuralgia B02.29 Anemia D64.9 Iron deficiency anemia type: unspecified iron deficiency Time Spent (min) 17
== END 2025-01-26 16:23 | disposition home or self-care (01) ==
LOC: HO.HPS 15:39
PROVIDERS: PCP Internal Medicine; Visit Provider Hospitalist
DX: I50.23 Acute on chronic systolic (congestive) heart failure (principal); J43.2 Centrilobular emphysema; R60.0 Localized edema; J96.11 Chronic respiratory failure with hypoxia; J96.12 Chronic respiratory failure with hypercapnia; I27.20 Pulmonary hypertension, unspecified; B02.29 Other postherpetic nervous system involvement; D64.9 Anemia, unspecified
CPT/HCPCS: 99214; G2211

== ENCOUNTER → 2025-01-26 15:38 | Outpatient (BNVA) | payer MEDICARE, SELFPAY | PROVIDERS: PCP Internal Medicine; Visit Provider Hospitalist | DX: J96.11 Chronic respiratory failure with hypoxia (principal); J96.12 Chronic respiratory failure with hypercapnia; J43.2 Centrilobular emphysema; B02.29 Other postherpetic nervous system involvement; I50.23 Acute on chronic systolic (congestive) heart failure; I27.20 Pulmonary hypertension, unspecified; D64.9 Anemia, unspecified; R60.0 Localized edema | CPT/HCPCS: 99212 ==

== ENCOUNTER 2025-04-10 09:30 | Outpatient (AMB) | payer MEDICARE, SELFPAY ==
--- NOTE | 2025-04-10 09:34 | MHC.OFFVIS ---
Vital Signs 04/10/25 09:35 Height 5 ft 1 in Weight 232 lb 9.403 oz BMI 43.9 BP 150/70 H Blood Pressure Location Lt brachial Position Sitting Pulse 92 Pulse Oximetry (%) 89 L Oxygen Delivery Method Room Air Intake Visit Reasons: COPD Allergies erythromycin base Allergy (Severe, Verified 04/10/25 09:38) Rash amoxicillin Adverse Reaction (Severe, Verified 04/10/25 09:38) Unknown ciprofloxacin [From Cipro] Adverse Reaction (Severe, Verified 04/10/25 09:38) Rash morphine Adverse Reaction (Severe, Verified 04/10/25 09:38) rash vancomycin Adverse Reaction (Severe, Verified 04/10/25 09:38) tao HPI Comments Details: The patient is a 80 year woman with a known history of COPD, ROBERTO on CPAP, in addition to congestive heart failure been complaining of worsening dyspnea on exertion the patient states that several years ago she was admitted to [facility] with a episode of decompensated heart failure. During that time the patient was placed on oxygen and was placed on cardioprotective medications and diuretics. Ultimately she was discharged on oxygen. Therefore she has been on oxygen now for several years getting his at her oxygen to her [employer], [employer]. Her family has also noticed that she has had significant wheezing and shortness of breath. She had been evaluated by Pulmonary in the past although I do not have those notes. She has not had pulmonary function studies in several years. She did follow-up with her primary care doctor who noted that she had been having significant wheezing and she was given a course of prednisone and also a sample of Stiolto. She completed the prednisone and she did feel little partial improvement. She continues on the Stiolto although is difficult for her to use. She had been on Anoro inhaler in the past but was 300 dollars extremely expensive and she could not afford using that on a monthly basis. Her friend did have a nebulizer and did provide the nebulizer for on treatment because she was wheezy and she did have improvement of her symptoms. She is wondering if a nebulizer could be helpful. Therefore she was referred to Pulmonary for further evaluation. During the visit we did go for 6 minutes walk test on the patient quickly desaturated on room air. She did well with a conserving device so therefore I will see resend a prescription to her [employer] company, [employer] in order for her to get be cylinders with a conserving valve with 2 L pulse. This will provide her better portability outside of the home. The patient also family the are also interested in getting a portable oxygen concentrator. Explained to them that this would be something that could be done but is going to take a significantly long time and sometimes it could be more than a year. Therefore she can start with the cylinders and try the pulse valve to see how this is effective for her. We can also provide her with a nebulizer and provided with medications in order for her to use it on a regular basis. The in the meantime will also have her undergo pulmonary function studies and a chest x-ray and she will follow up. the patient is also working with Cardiology. She did undergo an echocardiogram and now scheduled to undergo a nuclear stress test in the coming days. I do not have those results. 01/25/2023 the patient is here for pulmonary follow-up visit. Since we last spoke the patient did develop worsening shortness of breath and cough and wheezing. She did call in and we Center prednisone antibiotics. The prednisone did help her breathing significantly. Now she has completed the course. She still having shortness of breath. She did qualify for oxygen with activity during the last visit. Will go ahead and make sure that [facility] provides her with portable tanks ideally be sending the heart to be able to carry the oxygens outside of the home easier. In addition to this the patient has been using the Xopenex and also the budesonide twice a day. This has been partially helpful. We can also add muscarinic antagonist to the regimen and is no better. In addition to this will request blood work including allergy testing to assess to see if she is a good candidate for biologic therapy. We did review her pulmonary function studies demonstrating a moderate to severe obstructive lung disease in this case likely uncontrolled asthma and also the of lotion of COPD. Apparently the patient did have an echocardiogram done. I do not have the results but based on the daughter's description it appears that she has a component of pulmonary hypertension. Apparently her cardiac status is otherwise stable. It is possible that she has pulmonary hypertension secondary to her history of COPD and also some obstructive sleep apnea. Although will have to further address that to make sure the patient does not have any of the other groups. Patient is definitely volume overloaded this time she needs a additional diuresis. 05/19/2023 the patient is here for hospital follow-up visit. The patient has COPD and also has been on CPAP. She was admitted to the [facility] with significant discomfort. She was having significant shortness of breath. While she was there she developed respiratory failure. She was transferred over to [facility] required BiPAP. Even after BiPAP she has evidence of chronic hypercarbic respiratory failure secondary to her COPD. The patient has been on maximum respiratory therapy for COPD. At this point the patient needs to restart her on a noninvasive ventilator. The patient carries a poor prognosis with significant hypercarbia. She also carries a high risk of readmissions to the hospital. For that reason the patient needs to start a noninvasive ventilator. Noninvasive ventilator were improve her gas exchange and would also improve her prognosis and decrease hospitalizations. I spoken to the family and they are agreeable to this will start the process in order to get her on an astral noninvasive ventilator at this time. 07/08/2023 the patient is here for a pulmonary follow-up visit. Overall the patient has been doing better from a respiratory status. She did start the astral noninvasive ventilator. Is been very effective for her. She does use it every night. The therapy has been effective am beneficial. She is also been using her oxygen. The patient has been noticing increasing shortness of breath. Recently had a big [place] festival and she made a lot of food. There was some dietary indiscretions unfortunately. The patient noticed that her blood pressure went up and also significant weight gain. She is been working closely with cardiology to increase her diuretic safely. She does have blood work scheduled for tomorrow for additional evaluation of electrolytes and kidney function. If she does not improve there is mention of in-hospital therapy. We did have her undergo a chest x-ray today. No focal disease although appears to be demonstrating evidence of pulmonary vascular congestion. the patient will continue the diuretics as per Cardiology. If the patient is not better she will call and we can consider treating her for an ongoing lower respiratory process. But, right now she is not having any significant cough chest congestion or wheezing. 10/04/2023 the patient is here for a pulmonary follow-up visit. The patient has been complaining of worsening shortness of breath. She has gained close to 20 lb since her last visit. She did call out to Cardiology to see if her a diuretic can be adjusted. She was increased on 20 mg of torsemide to 40 mg recently. Still she has a lot of swelling. She has crackles on examination of concerned she is in heart failure. The patient is also using her oxygen. At nighttime she went back to her CPAP because is been hard to tolerate the noninvasive ventilator. I did explain to her that she needs to use her noninvasive ventilator because of her significant hypercarbia. Today before she goes I have her get blood work including a venous blood gas to assess her CO2 and make sure that she does not have any acute components to her hypercarbia. The patient will also have her kidney function checked checked and I will send the blood work over to her plant production manager in order for them to adjust her diuretics. The patient may benefit from a purple of some type to make sure that she can increased her diuretics to help her with her significant volume overload status. She understands that when her volume increases her pulmonary pressures and a respiratory symptoms also worsen. I will check a lot a prescription for adjustments to her noninvasive ventilator, astral. I did reach out to [facility] to make sure that they go over to her house to adjust the machine accordingly. 03/15/2024 the patient is here for a pulmonary follow-up visit. Overall she has been doing better. The patient has been tolerating her noninvasive ventilator every night. The noninvasive ventilator has been affecting beneficial. She was able to tolerated once he was further adjusted. We did recheck a venous blood gas in her CO2 is already significantly improved. she has not had to use her oxygen as regularly. She does monitor her oxygen levels. However, for the last few days she has been noticed some some increased weight gain. Most likely had to do with mother's day which she was eating different types of food. She is also noticed some increased lower extremity edema. Respiratory exam she is doing okay. No significant crackles appreciated. We did review her previous blood work that she had back in October. Her hemoglobin had dropped from 13 to 10.5. The patient states that she was supposed to have blood work done but she has not done as of yet. In addition to that on the diuretic therapy she needs to be careful with her kidney function. Will go ahead and request blood work since she is here today. Will go ahead and send him over to her primary care doctor's office. For now she is going to continue with current respiratory therapy. she will continue with diuresis as tolerated. She has had issues with blood pressure when she we closely working with her plant production manager and primary care doctor in order to improve her blood pressure control. other issues that she is complained about his what appears to be post herpetic neuralgia causing significant pain down her leg. In addition to that she did develop significant amount of psoriasis after getting vaccinated. 06/27/2024 the patient is here for a pulmonary follow-up visit. Overall the patient is doing well from a respiratory status. She continues to use the oxygen with good effect. In addition to that she has been using noninvasive ventilator. . She is being followed closely by primary care in addition to Nephrology. We did review her recent blood work that she had a [facility]. It appears that her BUN now is above 100. The last time that was measured at [place] it was only the 50s. Therefore, this is significantly elevated. The patient has been on multiple about diuretics. I did recommend she can hold her torsemide she to she speaks to Nephrology. The patient does appear to have some degree of asterixis on examination. I am not sure it does although if that is an early sign of uremia. No evidence of any active bleeding at this time. Seems like a mentation is stable. 01/26/2025 the patient is here for a pulmonary follow-up visit. She overall has been doing fair. She continues use a noninvasive ventilator at nighttime. He has been very helpful. However, is also very expensive. She has pain about 2 boxes month. We did call the [employer] under going to see about helping her with a hardship form to see if she qualifies in order to minimize the expense. Otherwise she has not old BiPAP and we can see if we can adjusted to see she can not tolerated and see if this provides with the same relief without the significant cost. In addition to that we did provide paperwork to fill out for hugh because she does have significant elements. The patient otherwise has continue her respiratory medications with good effect. She continues her oxygen also will good effect. Will continue the current respiratory regimen follow-up in the fall. She has any issues prior to that she will call for an earlier assessment. 04/10/2025 the patient is here for a pulmonary follow-up visit. The patient went back to using her CPAP. The CPAP therapy appears to be affecting beneficial. She does use it for more than 4 hours a night. Her AHI was down to 1.1. Seems that she is tolerating well with a fullface mask. The issue is that she does have issues with hypercarbia. She will need a sleep study to see if she can be tried on BiPAP. She may need a split study if possible if not a titration study afterwards. She continues with respiratory therapy with good effect. She did have a blood gas her pCO2 still elevated at 59 but is at her baseline. Which is reassuring specially after being on CPAP. She had been responding well to the noninvasive ventilator but was very expensive for her to pay the monthly expense. [facility] Medical History (Updated 06/27/24 @ 13:13 by Jeffery Jackson MD) Anemia Post herpetic neuralgia Pulmonary hypertension Asthma CHF (congestive heart failure) Chronic respiratory failure ROBERTO (obstructive sleep apnea) Extremity edema COPD (chronic obstructive pulmonary disease) Social History Patient Tobacco Use Status: Never used Tobacco Review of Systems Const Denies chills, Reports daytime sleepiness, Reports fatigue, Denies fever(s) and Reports snoring Eyes Denies change in vision ENT Denies dizziness Card Denies chest pain, Denies leg edema, Denies lightheadedness, Denies palpitations, Reports dyspnea on exertion, Denies orthopnea and Denies other Resp Reports cough, Reports dyspnea on exertion, Reports snoring and Reports wheezing GI Denies hematochezia and Denies change in stool character Musc Reports abnormal gait, Reports arthralgias, Denies muscle weakness, Denies numbness, Denies radiating pain into limb and Denies tingling Skin/Breast Reports lesions and Reports rash Neuro Reports abnormal gait, Denies dizziness, Denies numbness and Denies tingling Endo Reports fatigue and Denies palpitations Clint/Lymph Denies easy bleeding and Denies easy bruising Aller/Immun Reports wheezing Physical Exam Vital Signs: Last Vital Signs Pulse 92 04/10/25 09:35 BP 150/70 H 04/10/25 09:35 Pulse Ox 89 L 04/10/25 09:35 Oxygen Delivery Method Room Air 04/10/25 09:35 BMI result Body Mass Index 43.9 Const General: comfortable HEENT Head: Yes normocephalic Eyes General: appearance normal, both eyes and all related structures Neck Neck: Yes supple Chest Chest palpation & inspection: normal inspection of the chest Resp Effort & Inspection: normal respiratory effort Auscultation: no rales, no wheezes and diminished lung sounds Cardio Rate: regular rate Rhythm: regular rhythm Heart sounds: S1 normal heart sound present and S2 normal heart sound present GI Palpation (GI): Soft to palpation Skin General skin exam: no rashes or lesions noted Extrem General: Yes edema Assessment & Plan Assessment & Plan (1) CHF (congestive heart failure): Code(s): I50.9 - Heart failure, unspecified Category: Medical Qualifiers: Heart failure chronicity: acute on chronic Heart failure type: systolic Qualified Code(s): I50.23 - Acute on chronic systolic (congestive) heart failure (2) COPD (chronic obstructive pulmonary disease): Comment: moderate to severe Code(s): J44.9 - Chronic obstructive pulmonary disease, unspecified Category: Medical Qualifiers: COPD type: emphysema Emphysema type: centrilobular Qualified Code(s): J43.2 - Centrilobular emphysema (3) Extremity edema: Code(s): R60.0 - Localized edema Category: Medical (4) Chronic respiratory failure: Code(s): J96.10 - Chronic respiratory failure, unspecified whether with hypoxia or hypercapnia Category: Medical Qualifiers: Respiratory failure complication: hypoxia and hypercapnia Qualified Code(s): J96.11 - Chronic respiratory failure with hypoxia; J96.12 - Chronic respiratory failure with hypercapnia (5) Pulmonary hypertension: Comment: Likely WHO group 2&3 Code(s): I27.20 - Pulmonary hypertension, unspecified Category: Medical (6) Post herpetic neuralgia: Code(s): B02.29 - Other postherpetic nervous system involvement Category: Medical (7) Anemia: Code(s): D64.9 - Anemia, unspecified Category: Medical Qualifiers: Iron deficiency anemia type: unspecified iron deficiency Plan continue nebulizer with xopenex and budesonide continue oxygen continue nocturnal oxygen use return Astral non invasive ventilator bloodwork and bloodgas requesting inlab sleep study diuresis as tolerated lidoderm patch to affected area F/U 2-3 months Orders: Orders Venous Blood Gas Today G47.33 - Obstructive sleep apnea (adult) (pediatric), I50.23 - Acute on chronic systolic (congestive) heart failure, J96.11 - Chronic respiratory failure with hypoxia, J96.12 - Chronic respiratory failure with hypercapnia Basic Metabolic Panel Today G47.33 - Obstructive sleep apnea (adult) (pediatric), I50.23 - Acute on chronic systolic (congestive) heart failure, J96.11 - Chronic respiratory failure with hypoxia, J96.12 - Chronic respiratory failure with hypercapnia Erythrocyte Sedimentation Rate Today G47.33 - Obstructive sleep apnea (adult) (pediatric), I50.23 - Acute on chronic systolic (congestive) heart failure, J96.11 - Chronic respiratory failure with hypoxia, J96.12 - Chronic respiratory failure with hypercapnia B Type Natriuretic Peptide Today G47.33 - Obstructive sleep apnea (adult) (pediatric), I50.23 - Acute on chronic systolic (congestive) heart failure, J96.11 - Chronic respiratory failure with hypoxia, J96.12 - Chronic respiratory failure with hypercapnia RT PSG in-lab sleep study Today G47.33 - Obstructive sleep apnea (adult) (pediatric), J96.11 - Chronic respiratory failure with hypoxia, J96.12 - Chronic respiratory failure with hypercapnia Complete Blood Count Auto Diff Today G47.33 - Obstructive sleep apnea (adult) (pediatric), I50.23 - Acute on chronic systolic (congestive) heart failure, J96.11 - Chronic respiratory failure with hypoxia, J96.12 - Chronic respiratory failure with hypercapnia Coding Level of Care Code Est Pt Level 4 (00117) Complex EM visit Add On G2211 Diagnoses Acute on chronic systolic congestive heart failure I50.23 Heart failure chronicity: acute on chronic Heart failure type: systolic Centrilobular emphysema J43.2 COPD type: emphysema Emphysema type: centrilobular Extremity edema R60.0 Chronic respiratory failure with hypoxia and hypercapnia J96.11; J96.12 Respiratory failure complication: hypoxia and hypercapnia Pulmonary hypertension I27.20 Post herpetic neuralgia B02.29 Anemia D64.9 Iron deficiency anemia type: unspecified iron deficiency Time Spent (min) 18
[2025-04-10 09:35] VITALS: BP 150/70; PULSE 92; O2SAT 89; BMI 43.9
--- OUTSIDE RECORDS SUMMARY | 2025-04-10 10:29 | XMS_ITS | Clinical Summary ---
Author Organization [facility], Address [address] [place] [address] [place] [address] Phone Care Team Providers Care Skelp Processor Name Role Phone Flash Taylor MD Primary Care Provider Allergies Active Allergy Reactions Criticality Noted Date Comments Ciprofloxacin Other (see comments) 12/04/2019 Vancomycin Other (see comments) 12/04/2019 Medications latanoprost (XALATAN) 0.005 % ophthalmic solution Comments: Filled Date: Jul 13 2017 12:00AM Patient Notes: INSTILL 1 DROP INTO EACH EYE AT BEDTIME Duration: 30 7 Active omeprazole (PriLOSEC) [address] capsule Take 1 capsule by mouth 1 (one) time each day Active allopurinol (ZYLOPRIM) 100 MG tablet 9 Active carvedilol (COREG) 12.5 MG tablet Take 3.125 mg by mouth in the morning and 3.125 mg in the evening. Active diclofenac (VOLTAREN) 1 % gel 9 Active TRULICITY 1.5 MG/0.5ML solution pen-injector 9 Active SLOW FE 142 (45 Fe) MG tablet controlled-rele ase Take 1 tablet by mouth daily 9 Active gabapentin (NEURONTIN) 100 MG capsule Take 1 capsule by mouth 2 (two) times a day 7 Active pravastatin (PRAVACHOL) 40 MG tablet Take 1 tablet by mouth 1 (one) time each day 6 Active ketorolac (ACULAR) 0.5 % ophthalmic solution 0 Active predniSONE (DELTASONE) 20 MG tablet TAKE 2 TABLETS BY MOUTH EVERY DAY FOR 6 DAYS THEN 1 TABLET DAILY X4 DAYS 2 Active predniSONE (DELTASONE) 10 MG tablet TAKE 4 TABS X 4 DAYS, 2 TAB X 4 DAYS, 1 TAB X 4 DAYS ORALLY ONCE A DAY (TAKE WITH FOOD) 3 Active albuterol HFA (PROVENTIL HFA;VENTOLIN HFA) 108 (90 Base) MCG/ACT inhaler INHALE 2 PUFFS EVERY 6 HOURS 3 Active budesonide (PULMICORT) 0.25 MG/2ML nebulizer solution USE 1 VIAL VIA NEBULIZER TWICE A DAY 3 Active Diclofenac Sodium 1 % gel APPLY 4GRAMS TO EFFECTED AREAS 4 TIMES A DAY DIRECTED 3 Active doxycycline (VIBRAMYCIN) 100 MG capsule TAKE 1 CAPSULE BY MOUTH TWICE A DAY FOR 10 DAYS' 3 Active levalbuterol (XOPENEX) 1.25 MG/3ML nebulizer solution INHALE 1 VIAL VIA NEBULIZER TWICE DAILY 3 Active sacubitril-vals elba (Entresto) 24-26 MG per tablet Take 1 tablet by mouth in the morning and 1 tablet in the evening. Active torsemide (DEMADEX) 20 MG tablet Take 2 tablets (40 mg total) by mouth 1 (one) time each day 60 tablet 11 3 Active Empagliflozin (Jardiance) 10 MG tablet Take 10 mg by mouth 1 (one) time each day in the morning Active Active Problems Problem Noted Date Diagnosed Date Chronic kidney disease due to hypertension 12/04 Acute nontraumatic kidney injury 12/04/2019 Diabetes mellitus 12/04/2019 Essential hypertension 12/04/2019 Edema of lower extremity 12/04/2019 Hypercholesterolemia 12/04/2019 Resolved Problems Problem Noted Date Diagnosed Date Resolved Date History of procedure 12/04/2019 020 Overview (08/01/2024): Replacing diagnoses that were inactivated after the 08/01/24 Regulatory Import Encounters Date Type Department Care Team Description 04/04/2025 3:45 PM EDT Office Visit [facility], [address] [place] [address] Jay Ordoñez MD Stage 3b chronic kidney disease (HCC) (Primary Dx); Hypertension; Type 2 diabetes mellitus with diabetic chronic kidney disease (HCC); Other proteinuria 03/28/2025 Orders Only [facility] [address] [place] [address] Lady Razo MA Stage 3b chronic kidney disease (HCC) (Primary Dx); Hypertension; Type 2 diabetes mellitus with diabetic chronic kidney disease (HCC); Other proteinuria from Last 3 Months Immunizations Immunization Administration Dates Next Due Influenza Split High Dose Preservative Free IM 0 07/25/2020,08/16/2019 Pneumococcal, Unspecified 01/31/1999 Td 02/22/1998 Family History Relation Status Comments Mother Social History Tobacco Use Types Packs/Day Years Used Date Smoking Tobacco: Never Comments Unknown Sex and Gender Information Value Date Recorded Sex Assigned at Not on file Legal Sex Female 4:36 PM EST Gender Identity Not on file Sexual Orientation Not on file Last Filed Vital Signs Vital Sign Reading Time Taken Comments Blood Pressure 126/78 04/04/2025 4:19 PM EDT Pulse - - Temperature - - Respiratory Rate - - Oxygen Saturation - - Inhaled Oxygen Concentration - - Weight 103 kg (227 lb 9.6 oz) 05/23/2018 12:00 P M EDT Height 157.5 cm (5' 2 ) 08/07/2019 12:00 PM EDT Body Mass Index 41.63 05/23/2018 12:00 PM EDT Plan of Treatment Upcoming Encounters Date Type Department Care Team (Late st Contact Info) Description 08/29/2025 4:15 PM EDT Office Visit [facility] [address] [place] [address] Jay Ordoñez MD [address] [place] [address] [place] [address] Health Maintenance Due Date Last Done Comments Pneumococcal Vaccine: 50+ Years (1 of 2 - PCV) 1964 01/31/1999, 01/31/1999 Diabetes: Ophthalmology Exam 12/04/2019 Diabetes: Pedal Pulse Checked 12/04/2019 Diabetes: Sensory Foot Exam 12/04/2019 Diabetes: Visual Foot Exam 12/04/2019 Diabetes: Hemoglobin A1C 07/18/2024 024, 08/07/2019, 01/20/2018 Influenza Vaccine (Season Ended) 2025 07/25/2020, 08/16/2019 Pneumococcal Vaccine: Peds ( 0 to 5 Years) and At-Risk Patients (6 to 49 Years) Discontinued 01/31/1999, 01/31/1999 Hepatitis B Vaccine Aged Out No longe r eligible based on patient's age to complete this topic Procedures Procedure Name Priority Date/Time Associated Diagnosis Comments HEMOGLOBIN A1C Routine 08/07/2019 3:40 PM EDT from Last 3 Months or Most Recently Relevant to Health Maintenance Results * (ABNORMAL) Hemoglobin A1c (08/07/2019 3:40 PM EDT) Hemoglobin A1C 9.8(H) (4-6) % [facility] Comment: HEMOGLOBIN A1C(%) ?? GLUCOSE CONTROL INDEX ?<6% ? EXCELLENT ?6-7% ?VERY GOOD ?7-8% ?GOOD ?8-10% ? FAIR ?>10% ?POOR Hemoglobin (Hb) A1c testing is performed by [employer]-quant immunoassay. Any cause of shortened erythrocyte survival will reduce exposure of erythrocytes to glucose with a consequent decrease in Hb A1c (%). Testing performed or reported by ~[facility], ~a Service of [facility], ~[address] [facility], [place] [address]~ 08/07/2019 3:40 PM EDT Kirti Mcghee MD LAB BLOOD ORDERABLES Final Result [facility] from Last 3 Months or Most Recently Relevant to Health Maintenance Insurance [facility] Care Teams Skelp Processor Relationship Specialty Start Date End Date Flash Taylor MD [facility] [address], [place] PCP - General 09/05/19
== END 2025-04-10 10:07 | disposition home or self-care (01) ==
LOC: HO.HPS 09:31
PROVIDERS: PCP Internal Medicine; Visit Provider Hospitalist
DX: I50.23 Acute on chronic systolic (congestive) heart failure (principal); J43.2 Centrilobular emphysema; R60.0 Localized edema; J96.11 Chronic respiratory failure with hypoxia; J96.12 Chronic respiratory failure with hypercapnia; I27.20 Pulmonary hypertension, unspecified; B02.29 Other postherpetic nervous system involvement; D64.9 Anemia, unspecified
CPT/HCPCS: 99214; G2211

== ENCOUNTER 2025-04-10 09:30 | Outpatient (REF) | payer MEDICARE, SELFPAY ==
[2025-04-10 10:32] LABS: MANUAL DIFF FLAG NO
[2025-04-10 10:37] LABS: Basophils Percent Auto 0.1 % (0-2); Eosinophils Absolute Auto 0.2 X10*3/uL (0.0-0.4); Eosinophils Percent Auto 2.2 % (0-4); Hematocrit 35.8 % (37.0-47.0); Hemoglobin 11.4 g/dl (12.0-16.0); Imm Gran Abs Auto 0.03 X10*3/uL (0.00-0.03); Imm Gran Pct Auto 0.4 % (0.0-0.4); Lymphocytes Absolute Auto 1.3 X10*3/uL (1.2-4.9); Lymphocytes Percent Auto 15.9 % (20-40); Mean Corpuscular HGB Conc 31.8 g/dl (31.0-35.0); Mean Corpuscular Hemoglobin 30.1 pg (27.0-33.0); Mean Corpuscular Volume 94.5 fL (80.0-98.0); Mean Platelet Volume 11.5 fL (9.4-12.3); Monocytes Absolute Auto 0.5 X10*3/uL (0.1-1.2); Monocytes Percent Auto 6.6 % (2-11); Neutrophils Absolute Auto 6.2 x10*3/uL (2.0-8.3); Neutrophils Percent Auto 74.8 % (45-73); Platelet Count 192 X10*3/uL (160-400); Red Blood Count 3.79 X10*6/uL (4.20-5.50); Red Cell Distribution Width 13.5 % (11.0-16.0); Venous Blood Gas Refer to POC result; White Blood Count 8.2 X10*3/uL (4.8-10.8)
[2025-04-10 10:42] LABS: VBG Base Excess 8.7 mmol/L; VBG HCO3 35 mmol/L (22-26); VBG pCO2 59 mmHg; VBG pH 7.38 (7.32-7.43); VBG pO2 47 mmHg
[2025-04-10 10:52] LABS: Anion Gap 13 (12-20); Blood Urea Nitrogen 77 mg/dL (9-16); Calcium 6.7 mg/dL (8.4-10.2); Carbon Dioxide 34 mmol/L (22-29); Chloride 97 mmol/L (96-108); Estimated Glomerular Filt Rate 22; Glucose Random 334 mg/dL (60-115); Potassium 4.3 mmol/L (3.3-5.1); Sodium 140 mmol/L (135-145)
[2025-04-10 10:56] LABS: B Type Natriuretic Peptide 126 pg/mL (<100)
[2025-04-10 11:17] LABS: Erythrocyte Sedimentation Rate 72 MM/HR (0-20)
== END 2025-04-10 09:31 | disposition home or self-care (01) ==
LOC: HO.LAB 09:30
PROVIDERS: PCP Internal Medicine; Visit Provider Hospitalist
DX: J96.11 Chronic respiratory failure with hypoxia (principal); J96.12 Chronic respiratory failure with hypercapnia; I50.23 Acute on chronic systolic (congestive) heart failure; G47.33 Obstructive sleep apnea (adult) (pediatric); J43.2 Centrilobular emphysema; R60.0 Localized edema; I27.20 Pulmonary hypertension, unspecified; B02.29 Other postherpetic nervous system involvement; D64.9 Anemia, unspecified
CPT/HCPCS: 36415; 80048; 82803; 83880; 85025; 85652; 99212

== ENCOUNTER 2025-07-24 11:13 | Outpatient (AMB) | payer MEDICARE, SELFPAY ==
[2025-07-24 11:17] VITALS: BP 138/60; PULSE 82; O2SAT 93; BMI 42.3
--- NOTE | 2025-07-24 11:17 | A.OFFVIS_ITS ---
Vital Signs 07/24/25 11:17 Height 5 ft 1 in Weight 223 lb 12.307 oz BMI 42.3 BP 138/60 Blood Pressure Location Rt brachial Position Sitting Pulse 82 Pulse Source Pulse Oximeter Pulse Oximetry (%) 93 Oxygen Delivery Method Room Air Intake Visit Reasons: COPD Policy Analyst Required: No Accompanied by: Son Allergies erythromycin base Allergy (Severe, Verified 07/24/25 11:20) Rash amoxicillin Adverse Reaction (Severe, Verified 07/24/25 11:20) Unknown ciprofloxacin (From Cipro) Adverse Reaction (Severe, Verified 07/24/25 11:20) Rash morphine Adverse Reaction (Severe, Verified 07/24/25 11:20) rash vancomycin Adverse Reaction (Severe, Verified 07/24/25 11:20) tao HPI Comments Details: The patient is a 80 year woman with a known history of COPD, ROBERTO on CPAP, in addition to congestive heart failure been complaining of worsening dyspnea on exertion the patient states that several years ago she was admitted to [facility] with a episode of decompensated heart failure. During that time the patient was placed on oxygen and was placed on cardioprotective medications and diuretics. Ultimately she was discharged on oxygen. Therefore she has been on oxygen now for several years getting his at her oxygen to her [employer], [employer]. Her family has also noticed that she has had significant wheezing and shortness of breath. She had been evaluated by Pulmonary in the past although I do not have those notes. She has not had pulmonary function studies in several years. She did follow-up with her primary care doctor who noted that she had been having significant wheezing and she was given a course of prednisone and also a sample of Stiolto. She completed the prednisone and she did feel little partial improvement. She continues on the Stiolto although is difficult for her to use. She had been on Anoro inhaler in the past but was 300 dollars extremely expensive and she could not afford using that on a monthly basis. Her friend did have a nebulizer and did provide the nebulizer for on treatment because she was wheezy and she did have improvement of her symptoms. She is wondering if a nebulizer could be helpful. Therefore she was referred to Pulmonary for further evaluation. During the visit we did go for 6 minutes walk test on the patient quickly desaturated on room air. She did well with a conserving device so therefore I will see resend a prescription to her [employer] company, [employer] in order for her to get be cylinders with a conserving valve with 2 L pulse. This will provide her better portability outside of the home. The patient also family the are also interested in getting a portable oxygen concentrator. Explained to them that this would be something that could be done but is going to take a significantly long time and sometimes it could be more than a year. Therefore she can start with the cylinders and try the pulse valve to see how this is effective for her. We can also provide her with a nebulizer and provided with medications in order for her to use it on a regular basis. The in the meantime will also have her undergo pulmonary function studies and a chest x-ray and she will follow up. the patient is also working with Cardiology. She did undergo an echocardiogram and now scheduled to undergo a nuclear stress test in the coming days. I do not have those results. 01/25/2023 the patient is here for pulmonary follow-up visit. Since we last spoke the patient did develop worsening shortness of breath and cough and wheezing. She did call in and we Center prednisone antibiotics. The prednisone did help her breathing significantly. Now she has completed the course. She still having shortness of breath. She did qualify for oxygen with activity during the last visit. Will go ahead and make sure that [employer] provides her with portable tanks ideally be sending the heart to be able to carry the oxygens outside of the home easier. In addition to this the patient has been using the Xopenex and also the budesonide twice a day. This has been partially helpful. We can also add muscarinic antagonist to the regimen and is no better. In addition to this will request blood work including allergy testing to assess to see if she is a good candidate for biologic therapy. We did review her pulmonary function studies demonstrating a moderate to severe obstructive lung disease in this case likely uncontrolled asthma and also the of lotion of COPD. Apparently the patient did have an echocardiogram done. I do not have the results but based on the daughter's description it appears that she has a component of pulmonary hypertension. Apparently her cardiac status is otherwise stable. It is possible that she has pulmonary hypertension secondary to her history of COPD and also some obstructive sleep apnea. Although will have to further address that to make sure the patient does not have any of the other groups. Patient is definitely volume overloaded this time she needs a additional diuresis. 05/19/2023 the patient is here for hospital follow-up visit. The patient has COPD and also has been on CPAP. She was admitted to the [facility] with significant discomfort. She was having significant shortness of breath. While she was there she developed respiratory failure. She was transferred over to [facility] required BiPAP. Even after BiPAP she has evidence of chronic hypercarbic respiratory failure secondary to her COPD. The patient has been on maximum respiratory therapy for COPD. At this point the patient needs to restart her on a noninvasive ventilator. The patient carries a poor prognosis with significant hypercarbia. She also carries a high risk of readmissions to the hospital. For that reason the patient needs to start a noninvasive ventilator. Noninvasive ventilator were improve her gas exchange and would also improve her prognosis and decrease hospitalizations. I spoken to the family and they are agreeable to this will start the process in order to get her on an astral noninvasive ventilator at this time. 07/08/2023 the patient is here for a pulmonary follow-up visit. Overall the patient has been doing better from a respiratory status. She did start the astral noninvasive ventilator. Is been very effective for her. She does use it every night. The therapy has been effective am beneficial. She is also been using her oxygen. The patient has been noticing increasing shortness of breath. Recently had a big [place] festival and she made a lot of food. There was some dietary indiscretions unfortunately. The patient noticed that her blood pressure went up and also significant weight gain. She is been working closely with cardiology to increase her diuretic safely. She does have blood work scheduled for tomorrow for additional evaluation of electrolytes and kidney function. If she does not improve there is mention of in-hospital therapy. We did have her undergo a chest x-ray today. No focal disease although appears to be demonstrating evidence of pulmonary vascular congestion. the patient will continue the diuretics as per Cardiology. If the patient is not better she will call and we can consider treating her for an ongoing lower respiratory process. But, right now she is not having any significant cough chest congestion or wheezing. 10/04/2023 the patient is here for a pulmonary follow-up visit. The patient has been complaining of worsening shortness of breath. She has gained close to 20 lb since her last visit. She did call out to Cardiology to see if her a diuretic can be adjusted. She was increased on 20 mg of torsemide to 40 mg recently. Still she has a lot of swelling. She has crackles on examination of concerned she is in heart failure. The patient is also using her oxygen. At nighttime she went back to her CPAP because is been hard to tolerate the noninvasive ventilator. I did explain to her that she needs to use her noninvasive ventilator because of her significant hypercarbia. Today before she goes I have her get blood work including a venous blood gas to assess her CO2 and make sure that she does not have any acute components to her hypercarbia. The patient will also have her kidney function checked checked and I will send the blood work over to her maintenance welder in order for them to adjust her diuretics. The patient may benefit from a purple of some type to make sure that she can increased her diuretics to help her with her significant volume overload status. She understands that when her volume increases her pulmonary pressures and a respiratory symptoms also worsen. I will check a lot a prescription for adjustments to her noninvasive ventilator, astral. I did reach out to [facility] to make sure that they go over to her house to adjust the machine accordingly. 03/15/2024 the patient is here for a pulmonary follow-up visit. Overall she has been doing better. The patient has been tolerating her noninvasive ventilator every night. The noninvasive ventilator has been affecting beneficial. She was able to tolerated once he was further adjusted. We did recheck a venous blood gas in her CO2 is already significantly improved. she has not had to use her oxygen as regularly. She does monitor her oxygen levels. However, for the last few days she has been noticed some some increased weight gain. Most likely had to do with mother's day which she was eating different types of food. She is also noticed some increased lower extremity edema. Respiratory exam she is doing okay. No significant crackles appreciated. We did review her previous blood work that she had back in October. Her hemoglobin had dropped from 13 to 10.5. The patient states that she was supposed to have blood work done but she has not done as of yet. In addition to that on the diuretic therapy she needs to be careful with her kidney function. Will go ahead and request blood work since she is here today. Will go ahead and send him over to her primary care doctor's office. For now she is going to continue with current respiratory therapy. she will continue with diuresis as tolerated. She has had issues with blood pressure when she we closely working with her maintenance welder and primary care doctor in order to improve her blood pressure control. other issues that she is complained about his what appears to be post herpetic neuralgia causing significant pain down her leg. In addition to that she did develop significant amount of psoriasis after getting vaccinated. 06/27/2024 the patient is here for a pulmonary follow-up visit. Overall the patient is doing well from a respiratory status. She continues to use the oxygen with good effect. In addition to that she has been using noninvasive ventilator. . She is being followed closely by primary care in addition to Nephrology. We did review her recent blood work that she had a [facility]. It appears that her BUN now is above 100. The last time that was measured at [facility] it was only the 50s. Therefore, this is significantly elevated. The patient has been on multiple about diuretics. I did recommend she can hold her torsemide she to she speaks to Nephrology. The patient does appear to have some degree of asterixis on examination. I am not sure it does although if that is an early sign of uremia. No evidence of any active bleeding at this time. Seems like a mentation is stable. 01/26/2025 the patient is here for a pulmonary follow-up visit. She overall has been doing fair. She continues use a noninvasive ventilator at nighttime. He has been very helpful. However, is also very expensive. She has pain about 2 boxes month. We did call the [email or web address], Yan under going to see about helping her with a hardship form to see if she qualifies in order to minimize the expense. Otherwise she has not old BiPAP and we can see if we can adjusted to see she can not tolerated and see if this provides with the same relief without the significant cost. In addition to that we did provide paperwork to fill out for hugh because she does have significant elements. The patient otherwise has continue her respiratory medications with good effect. She continues her oxygen also will good effect. Will continue the current respiratory regimen follow-up in the fall. She has any issues prior to that she will call for an earlier assessment. 04/10/2025 the patient is here for a pulmonary follow-up visit. The patient went back to using her CPAP. The CPAP therapy appears to be affecting beneficial. She does use it for more than 4 hours a night. Her AHI was down to 1.1. Seems that she is tolerating well with a fullface mask. The issue is that she does have issues with hypercarbia. She will need a sleep study to see if she can be tried on BiPAP. She may need a split study if possible if not a titration study afterwards. She continues with respiratory therapy with good effect. She did have a blood gas her pCO2 still elevated at 59 but is at her baseline. Which is reassuring specially after being on CPAP. She had been responding well to the noninvasive ventilator but was very expensive for her to pay the monthly expense. 07/24/2025 the patient is here for a hospital follow-up visit. She has been very sickly. Apparently she spent some time at [facility] admitted back in May then she went to rehab and then she had to go back to the hospital at [facility] back in June and then she went to rehabilitation. She was basically out of the house for more than 6 weeks. The patient was treated for heart failure and also acute on chronic hypercarbic respiratory failure and COPD she was also treated for acute kidney injury where her creatinine increased significantly to the point that they thought she would need dialysis. Although things did normalize. In the meantime she does use the oxygen. Although she does not have any port able tanks that she can handle. In the office here we did go for brief walking oximetry with a portable oxygen concentrator and she did desaturate down to 88% on room air with simple walking on room air and then which she was placed on 2 L pulse maintaining a pulse ox about 94%. Therefore will request a portable oxygen concentrator battery operated from [facility] for better portability outside of the home. And she is also using the oxygen while sleeping. She is waiting for sleep study. She needs to have a in-lab sleep study to address her end- tidal CO2 and also her sleep apnea in order to better effectively treated. Will have to make sure that her test that is scheduled for the end of July is capable of monitoring her end-tidal CO2 if now we are going to have to cancer and order it elsewhere. She continues use her diuretics and cardioprotective medications as prescribed her respiratory medications as prescribed. [facility] Medical History (Updated 06/27/24 @ 13:13 by Jeffery Jackson MD) Anemia Post herpetic neuralgia Pulmonary hypertension Asthma CHF (congestive heart failure) Chronic respiratory failure ROBERTO (obstructive sleep apnea) Extremity edema COPD (chronic obstructive pulmonary disease) Social History Patient Tobacco Use Status: Never used Tobacco Review of Systems Const Denies chills, Reports daytime sleepiness, Reports fatigue, Denies fever(s) and Reports snoring Eyes Denies change in vision ENT Denies dizziness Card Denies chest pain, Reports leg edema, Denies lightheadedness, Denies palpitations, Reports dyspnea on exertion, Denies orthopnea and Denies other Resp Reports cough, Reports dyspnea on exertion, Reports snoring and Reports wheezing GI Denies hematochezia and Denies change in stool character Musc Reports abnormal gait, Reports arthralgias, Denies muscle weakness, Denies numbness, Denies radiating pain into limb and Denies tingling Skin/Breast Reports lesions and Reports rash Neuro Reports abnormal gait, Denies dizziness, Denies numbness and Denies tingling Endo Reports fatigue and Denies palpitations Clint/Lymph Denies easy bleeding and Denies easy bruising Aller/Immun Reports wheezing Physical Exam Vital Signs: Last Vital Signs Pulse 82 07/24/25 11:17 BP 138/60 07/24/25 11:17 Pulse Ox 93 07/24/25 11:17 Oxygen Delivery Method Room Air 07/24/25 11:17 BMI result Body Mass Index 42.3 Const General: comfortable HEENT Head: Yes normocephalic Eyes General: appearance normal, both eyes and all related structures Neck Neck: Yes supple Chest Chest palpation & inspection: normal inspection of the chest Resp Effort & Inspection: normal respiratory effort Auscultation: no rales, no wheezes and diminished lung sounds Cardio Rate: regular rate Rhythm: regular rhythm Heart sounds: S1 normal heart sound present and S2 normal heart sound present GI Palpation (GI): Soft to palpation Skin General skin exam: no rashes or lesions noted Extrem General: Yes edema Office Procedures 6 Minute Walk Time:: 20:52 SPO2 % at rest: 94 Pulse at rest: 89 SPO2 % during excercise: 88 Pulse during excercise: 105 Distance in yards walked: 100 Prasanna Score: 5 Supplemental Oxygen: desaturated on RA with activity to 88%, placed on 2L/pulse with POC and maintained pox 94$ with activity [id number] - 6 Minute Walk Assessment & Plan Assessment & Plan (1) CHF (congestive heart failure): Code(s): I50.9 - Heart failure, unspecified Category: Medical Qualifiers: Heart failure chronicity: acute on chronic Heart failure type: systolic Qualified Code(s): I50.23 - Acute on chronic systolic (congestive) heart failure (2) COPD (chronic obstructive pulmonary disease): Comment: moderate to severe Code(s): J44.9 - Chronic obstructive pulmonary disease, unspecified Category: Medical Qualifiers: COPD type: emphysema Emphysema type: centrilobular Qualified Code(s): J43.2 - Centrilobular emphysema (3) Extremity edema: Code(s): R60.0 - Localized edema Category: Medical (4) Chronic respiratory failure: Code(s): J96.10 - Chronic respiratory failure, unspecified whether with hypoxia or hypercapnia Category: Medical Qualifiers: Respiratory failure complication: hypoxia and hypercapnia Qualified Code(s): J96.11 - Chronic respiratory failure with hypoxia; J96.12 - Chronic respiratory failure with hypercapnia (5) Pulmonary hypertension: Comment: Likely WHO group 2&3 Code(s): I27.20 - Pulmonary hypertension, unspecified Category: Medical (6) Post herpetic neuralgia: Code(s): B02.29 - Other postherpetic nervous system involvement Category: Medical (7) Anemia: Code(s): D64.9 - Anemia, unspecified Category: Medical Qualifiers: Iron deficiency anemia type: unspecified iron deficiency Plan continue nebulizer with xopenex and budesonide continue oxygen: start POC 2l/pulse with activity for better portability outside of the home. continue nocturnal oxygen with PAP requesting inlab sleep study with end tidal CO2 diuresis as tolerated lidoderm patch to affected area F/U 2-3 months Coding Level of Care Code Est Pt Level 5 (01830) Complex EM visit Add On G2211 Diagnoses Acute on chronic systolic congestive heart failure I50.23 Heart failure chronicity: acute on chronic Heart failure type: systolic Centrilobular emphysema J43.2 COPD type: emphysema Emphysema type: centrilobular Extremity edema R60.0 Chronic respiratory failure with hypoxia and hypercapnia J96.11; J96.12 Respiratory failure complication: hypoxia and hypercapnia Pulmonary hypertension I27.20 Post herpetic neuralgia B02.29 Anemia D64.9 Iron deficiency anemia type: unspecified iron deficiency CPT Codes Coding ([id number]) Time Spent (min) 50
--- OUTSIDE RECORDS SUMMARY | 2025-07-24 14:03 | XMS_ITS | Encounter Summary ---
Author Organization [employer] Address [address] [place] [address] Care Team Providers Care Bank Secrecy Act Officer Name Role Phone Flash Taylor MD Primary Care Provider [phone] Encounter Details Date Type Department Care Team (Late st Contact Info) Description 06/02/2025 Lab Requisition [facility] - Main Lab [address] [facility] [place] [address] Kaylene Burns MD [address] [id number] Urinary tract infection, site not specified Social History Tobacco Use Types Packs/Day Years Used Date Smoking Tobacco: Never Smokeless Tobacco: Never Alcohol Use Standard Drinks/Week Comments Never 0 (1 standard drink = 0.6 oz pur e alcohol) Comments Unknown Sex and Gender Information Value Date Recorded Sex Assigned at Not on file Legal Sex Female 8:52 PM EST Gender Identity Not on file Sexual Orientation Not on file documented as of this encounter Plan of Treatment Not on file documented as of this encounter Procedures Procedure Name Priority Date/Time Associated Diagnosis Comments URINALYSIS WITH REFLEX MICROSCOPIC Routine 06/02/2025 3:00 AM EDT Urinary tract infection, site not specified URINALYSIS WITH REFLEX MICROSCOPIC Routine 06/02/2025 3:00 AM EDT Urinary tract infection, site not specified CULTURE URINE Routine 06/02/2025 3:00 AM EDT Urinary tract infection, site not specified documented in this encounter Results * (ABNORMAL) Urinalysis with reflex microscopic (06/02/2025 3:00 AM [facility]) Specific [place] Urine 1.010 1.003 - 1.030 LAB URINALYSIS - AUTOMATED METHOD 06/02/2025 11:41 AM [facility] pH, Urine 6.0 5.0 - 8.0 pH LAB URINALYSIS - AUTOMATED METHOD 06/02/2025 11:41 AM [facility] Leukocytes, Urine Large(A) Negative LAB URINALYSIS - AUTOMATED METHOD 06/02/2025 11:41 AM [facility] Nitrite, Urine Negative Negative LAB URINALYSIS - AUTOMATED METHOD 06/02/2025 11:41 AM [facility] Protein, Urine 30(A) <=Trace mg/dL LAB URINALYSIS - AUTOMATED METHOD 06/02/2025 11:41 AM [facility] Glucose, Urine 250(A) Negative mg/dL LAB URINALYSIS - AUTOMATED METHOD 06/02/2025 11:41 AM [facility] Ketones, Urine Negative Negative mg/dL LAB URINALYSIS - AUTOMATED METHOD 06/02/2025 11:41 AM [facility] Urobilinogen , Urine 0.2 0.2 - 1.0 mg/dL LAB URINALYSIS - AUTOMATED METHOD 06/02/2025 11:41 AM [facility] Bilirubin, Urine Negative Negative LAB URINALYSIS - AUTOMATED METHOD 06/02/2025 11:41 AM [facility] Blood, Urine Small(A) Negative LAB URINALYSIS - AUTOMATED METHOD 06/02/2025 11:41 AM [facility] RBC, Urine 2.9 0 - 4 /HPF LAB URINALYSIS - AUTOMATED METHOD 06/02/2025 11:41 AM [facility] WBC, Urine 622.7(H) 0 - 4 /HPF LAB URINALYSIS - AUTOMATED METHOD 06/02/2025 11:[address] [facility] Squamous Epithelial, Urine 2 0 - 60 /LPF LAB URINALYSIS - AUTOMATED METHOD 06/02/2025 11:[address] [facility] Bacteria, Urine Negative Negative /HPF LAB URINALYSIS - AUTOMATED METHOD 06/02/2025 11:[address] [facility] Hyaline Casts, Urine 4.4(H) 0 - 3 /LPF LAB URINALYSIS - AUTOMATED METHOD 06/02/2025 11:[address] [facility] Yeast, Urine Present(A) None /HPF LAB URINALYSIS - AUTOMATED METHOD 06/02/2025 11:[address] [facility] Urine Urine specimen obtained by clean catch procedure / Unknown Non-blood Collection / Unknown 06/02/2025 3:00 AM EDT 06/02/2025 10:49 AM EDT Kaylene Burns MD LAB URINE ORDERABLES Fin al Result Performing Organization Address [facility]/ZIP Co de Phone Number [facility] [address] [place] [address], [place] [phone] * Culture urine (06/02/2025 3:00 AM EDT) Culture, Urine No growth 06/03/2025 11:[address] [facility] Urine Urine specimen obtained by clean catch procedure / Unknown Non-blood Collection / Unknown 06/02/2025 3:00 AM EDT 06/02/2025 10:49 AM EDT Kaylene Burns MD LAB MICROBIOLOGY - GENER AL ORDERABLES Final Result [facility] [address] [place] [address], [place] [phone] documented in this encounter Visit Diagnoses Diagnosis Urinary tract infection, site not specified documented in this encounter Care Teams Bank Secrecy Act Officer Relationship Specialty Start Date End Date Flash Taylor MD [address] [place] [address] PCP - General 12/02/07 documented as of this encounter
--- OUTSIDE RECORDS SUMMARY | 2025-07-24 14:03 | XMS_ITS | Patient Health Record ---
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 Role Phone Brandon THOMPSON, Flash Primary Care Provider Unavailab Yadira Nuñez Unavailable [phone] Herman Girard Unavailable [phone] Allergies Allergen (clinical drug ingredient) Drug/Non Drug Allergy documented on EMR Reaction Allergy Type Onset Date Status amoxicillin Amoxicillin Unknown Drug Allergy Act nerissa ciprofloxacin Cipro Unknown Drug Allergy Act nerissa Results Component Value Reference Range Notes HEMOGLOBIN A1C (GLYCOHEMOGLO BIN) Reviewed date:12/07/2024 09:53:10 AM Interpretation: Performing Lab: Notes/Report: HEMOGLOBIN A1C % (HH) 6.9 HEMOGLOBIN A1C (GLYCOHEMOGLO BIN) Reviewed date:03/08/2025 11:21:49 AM Interpretation: Performing Lab: Notes/Report: HEMOGLOBIN A1C % (HH) 9.0 Reason For Referral No Information Medications Medication SIG (Take, Route, Frequency, Duration) Notes Start Date End Date Status Centrum Silver Activ e Pravastatin Sodium A ctive Torsemide Active Omeprazole Active Allopurinol Active Carvedilol Active Jardiance Active Entresto Active Lyrica Active Fish Oil Active Extra Depth Orthopedic Shoes (1 Pair) with Customized Heat Molded Multidensity Innersoles (3 Pair) as directed Dx: NIDDM/Polyneuropathy (E11.42), Hammertoe Foot Deformity (M20.41,M20.42), Preulcerative Skin Lesion(s) (L85.1 03/08/2025 Active Iron Active Trulicity Active Calcium Active Lantus Active Social History Tobacco Use: Social History Observation Description Date Details (start date - stop date) Never Smoker NA - NA Tobacco use other than smoking: Question Answer Notes Are you an other tobacco user? No Tobacco Control (Standard) Question Answer Notes Tobacco use: Nonsmoker Additional Findings: Tobacco non-user Current no nsmoker AUDIT-C (Standard) Question Answer Notes Did you have a drink containing alcohol in the p ast year? No Points 0 Interpretation Negative Problems Problem Type SNOMED Code ICD Code Onset Dates Problem Status W/U Status Risk Notes Problem Acquired hammer toe of right foot (8823246032481061 ) Other hammer toe(s) (acquired), right foot (M20.41) Active confirmed Problem Acquired hammer toe of left foot (9346508668884109 ) Other hammer toe(s) (acquired), left foot (M20.42) Active confirmed Problem Polyneuropathy due to type 2 diabetes mellitus (884947719) Type 2 diabetes mellitus with diabetic polyneuropathy (E11.42) Active confirmed Problem Peripheral circulatory disorder associated with diabetes mellitus (200125874) Type 2 diabetes mellitus with other circulatory complications (E11.59) Active confirmed Vital Signs Heart Rate 93 /min 12/07/2024 Blood pressure diastolic 85 mm Hg 03/08/2025 Height 5 ft 2 in in 03/08/2025 Blood pressure systolic 159 mm Hg 03/08/2025 Weight 230 lbs 03/08/2025 BMI 42.06 kg/m2 03/08/2025 Procedures Procedure Date Ordered Date Performed Result Body Sit e 91376-WBKYLKX NAIL, 6 OR MORE 12/07/2024 N/A 71062-XEFU SKIN LESIONS, OVER 4 12/07/2024 N/A Encounters Encounter [facility] Date [facility] [address] 12/07/2024 Herman Girard Pain in right toe(s) M79.674 ; Tinea unguium B35.1 ; Pain in left toe(s) M79.675 and Type 2 diabetes mellitus with other circulatory complications E11.[address] [address] 03/08/2025 Yadira Jacobsen Type 2 diabetes mellitus with diabetic polyneuropathy E11.42 ; Other hammer toe(s) (acquired), right foot M20.41 ; Tinea unguium B35.1 ; Other hammer toe(s) (acquired), left foot M20.42 and Type 2 diabetes mellitus with other circulatory complications E11.59 [facility] [address] [place] [address] 12/05/2024 Herman Girard Assessments Encounter Date Diagnosis (ICD Code) Assessment Notes Treatment Notes Treatment Clinical Notes Section Notes 12/07/2024 Tinea unguium (ICD-10 - B35.1) 12/07/2024 Pain in right toe(s) (ICD-10 - M79.674) 03/08/2025 Other hammer toe(s) (acquired), right foot (ICD-10 - M20.41) Patient Educated with: DIABETIC FOOT CARE INSTRUCTIONS. pdf (DIABETIC FOOT CARE INSTRUCTIONS. pdf) 03/08/2025 Type 2 diabetes mellitus with diabetic polyneuropathy (ICD-10 - E11.42) 03/08/2025 Tinea unguium (ICD-10 - B35.1) 12/07/2024 Pain in left toe(s) (ICD-10 - M79.675) 03/08/2025 Other hammer toe(s) (acquired), left foot (ICD-10 - M20.42) 12/07/2024 Type 2 diabetes mellitus with other circulatory complications (ICD-10 - E11.59) 03/08/2025 Type 2 diabetes mellitus with other circulatory complications (ICD-10 - E11.59) Plan Of Treatment Pending Test Test Name Order Date [id number] NAIL, 6 OR MORE 12/07/2024 33923-EFRT SKIN LESIONS, OVER 4 12/07/19 25 Insurance Providers Payer Name Payer Address Payer Phone Subscriber Number Group Number Insured Name Patient Relationship to Insured Coverage Start Date Coverage End Date [facility] [address] [place], [place] [id number] Carl Green Self - patient is the insured 4 Medical (General) History Medical History History ICD Code Anemia Asthma Back,Hip,and Knee pain CAD Cataracts Covid 19 Diabetes Glaucoma Gout Heart Disease Hiatal Hernia High Blood Pressure Kidney Disease Lung Disease Psoriasis/Eczema Shingles COPD CHF Surgical History Surgery Date(Month/Year) cervical neck 07/2005 hysterectomy 07/1990 cataract surgery 09/2020 Hospitalization History Reason Date(Month/Year) URBAN Ortiz 10/2024
--- OUTSIDE RECORDS SUMMARY | 2025-07-24 14:03 | XMS_ITS | Clinical Summary ---
Author Organization [facility] Address [address] [place] [address] Phone Care Team Providers Care Civil Engineer'S Aide Name Role Phone Flash Taylor MD Primary Care Provider [phone] Allergies Active Allergy Reactions Criticality Noted Date Comments Amoxicillin 05/20/2023 Ciprofloxacin 06/12/2021 Other Reaction(s): Hives/Urticaria Medications empagliflozin (Jardiance) 10 mg tablet Take 1 tablet (10 mg total) by mouth 1 (one) time each day in the morning. 02/14/20 24 Active pregabalin (LYRICA) 75 mg capsule Take 1 capsule (75 mg total) by mouth 1 (one) time each day. Active levalbuterol (XOPENEX) 1.25 mg/3 mL nebulizer solution Take 1 Ampule by nebulization every 4 hours as needed Active budesonide (PULMICORT) 0.25 mg/2 mL nebulizer solution Inhale 2 mL (0.25 mg total) by mouth 1 (one) time each day. Active ferrous sulfate 142 mg ER tablet Take by mouth 1 (one) time each day. Active multivit-min/i mickey/FA/vit K/lut (CENTRUM SILVER WOMEN ORAL) Take by mouth. Multiple Vitamins-Minera ls (Centrum Silver 50+Women) Tab Active inhaler, assist devices (AEROCHAMBER MV MISC) 1 Device by Does not apply route as needed (with prn albuterol mdi). 11/07/19 22 Active semaglutide (Ozempic) 0.25 mg or 0.5 mg(2 mg/1.5 mL) injection pen Inject 0.5 mg under the skin every 7 (seven) days. Active allopurinoL (ZYLOPRIM) 100 mg tablet 2 tablets (200 mg total) 1 (one) time each day. 09/18/20 Active insulin glargine (Lantus U-100 Insulin) 100 unit/mL injection daily. 10 units am , 10 units pm 09/18/20 Active omeprazole (PRILOSEC) 20 mg tablet,delayed release (DR/EC) 1 tablet (20 mg total) 1 (one) time each day. 09/18/20 Active pravastatin (PRAVACHOL) 40 mg tablet 1 tablet (40 mg total) 1 (one) time each day. 09/18/20 Active torsemide (DEMADEX) 20 mg tablet Take 2 tablets (40 mg total) by mouth 1 (one) time each day. 180 tablet 3 11/02/19 25 Active carvediloL (COREG) 3.125 mg tablet TAKE 1 TABLET BY MOUTH TWICE A DAY WITH MEALS 180 tablet 1 05/03/20 25 Active Entresto 24-26 mg per tablet TAKE 1 TABLET BY MOUTH TWICE A DAY 180 tablet 1 07/03/20 25 Active sacubitriL-clarita sartan (Entresto) 24-26 mg per tablet Take 1 tablet by mouth 2 (two) times a day. 180 each 1 10/12/20 24 025 Discontinued Active Problems Problem Noted Date Diagnosed Date Acute respiratory failure wi th hypercapnia ([facility] V24, [facility] V28) 05/18/2023 CKD (chronic kidney disease) , stage III ([facility] V24, [facility] V28) 05/18/2023 COPD (chronic obstructive pu lmonary disease) ([facility] V24, [facility] V28) 02/25/2023 Overview (10/11/2024): Last Assessment & Plan: The patient has a history of COPD on home oxygen therapy. She was also noted to have mild pulmonary hypertension on the echocardiogram. The patient is followed closely by her supervisor pleating. She was encouraged to continue to follow-up with her supervisor pleating regarding the management of her COPD. Edema 02/25/2023 Overview (10/11/2024): Last Assessment & Plan: The patient was found to have mild bilateral lower extremity edema on her physical examination today. The patient does have a history of HFpEF and she is currently on torsemide. However, on the physical examination there was also evidence of venous stasis skin changes. Therefore, I will order a lower extremity venous ultrasound study to rule out venous insufficiency which could also be contributing to her lower extremity edema. Ascending aorta dilatation (CMS/HCC V24) 022 Overview (10/11/2024): Last Assessment & Plan: Will update a new echocardiogram to evaluate for progression. Assessment & Plan (10/12/2024 9:02 AM EST): Recent echocardiogram showed mild dilation and stable when compared to prior. Will continue to monitor with periodic echocardiograms to monitor for progression. Orders: ECG 12 lead Hyperlipidemia 10/29/2022 Overview (10/11/2024): Last Assessment & Plan: The patient has a history of hyperlipidemia. She continues on her current dose of pravastatin 40 mg orally daily. Her last fasting lipid panel showed acceptable cholesterol levels. We will continue current therapies. Syncope 10/29/2022 Overview (10/11/2024): Last Assessment & Plan: The patient had an episode of syncope in November 2021. The episode of syncope occurred when she was eating. Apparently, she felt that her food got stuck in her throat and she felt that she choking . When she got up to try to go to the sink to spit it out she apparently lost consciousness. She had a fall as a result of her episode of syncope and had a head injury. She was evaluated at the [facility] and they completed a head CT scan which did not show any evidence of an acute intracranial abnormality. After that, during her next visit to our office, she described her episode of syncope and a cardiac work-up was ordered. An echocardiogram showed a normal LVEF and only mild valve disease, and a 30-day EKG therefore, given the description of the event as well as the results of the cardiac testing, monitor did not show any evidence of arrhythmias. As such, given the description of the episode of syncope as well as the results of her cardiac test, it is likely that her syncope was vasovagal in nature. The patient's daughter states that the patient has not had any further episode of syncope after this event in November 2021. Therefore, no need for any further cardiac testing at this point. The patient's daughter and the patient were instructed to contact our office if the patient has any further episodes of syncope. Chronic heart failure with p reserved ejection fraction (HFpEF) ([facility] V24, [facility] V28) 06/05/2021 Overview (10/11/2024): Last Assessment & Plan: Patient has a history of HFpEF. Her last echocardiogram showed LVEF 55 to 60% with grade 1 LV diastolic dysfunction and mild LVH. Echocardiogram also showed mild pulmonary hypertension which is likely secondary to underlying COPD. She continues on torsemide 20 mg orally daily and appears euvolemic on physical exam today. Mild bilateral lower extremity edema likely related to venous insufficiency as she follows with vascular surgery as well. She will continue to wear compression stockings. She will continue on Entresto and low-dose carvedilol reinitiated today. She also has a history of CKD and continues to follow with nephrology. Recent GFR is ranged from 24-38. At this point, will not initiate SGLT2 inhibitor given her kidney function. I've asked the patient to call if they develop worsening symptoms of heart failure such as increased shortness of breath, new or worsening cough, increased swelling in the legs or ankles, or weight gain of more than 2 pounds in one day or 4 pounds in one week. Will continue current therapies. Assessment & Plan (10/12/2024 9:02 AM EST): Patient has a history of HFpEF. She recently underwent echocardiogram in May 2024 which showed normal LV function and grade 1 LV diastolic dysfunction. She appears euvolemic on physical exam today without clinical signs of acute heart failure. She denies any abrupt increases in weight or worsening lower extremity edema or shortness of breath. She continues on medical therapy with carvedilol, Entresto 24-26 mg twice daily, torsemide 40 mg orally daily, and Jardiance as prescribed. Given her GFR, unable to further titrate GDMT. She will continue to follow closely with nephrology who monitors her kidney function every 3 to 6 months. The patient and the patient's family are very concerned that after her , she may have broken heart syndrome . We discussed clinically with this may look like including worsening heart failure symptoms and the patient does not appear to have any of these symptoms, however does not feel fully back to herself. We discussed this may be due to recent COVID and her passing away. We will reassess with an echocardiogram to be completed to reevaluate her LV function. I will notify her of the results as soon as they become available. I've asked the patient to call if they develop worsening symptoms of heart failure such as increased shortness of breath, new or worsening cough, increased swelling in the legs or ankles, or weight gain of more than 2 pounds in one day or 4 pounds in one week. Orders: ECG 12 lead Transthoracic echocardiogram (TTE) complete with PRN contrast, bubble, strain, and 3D order panel; Future Hypertension 06/05/2021 Overview (10/11/2024): Last Assessment & Plan: Patient has a history of hypertension. In the past, she had been dealing with breakouts of psoriasis and shingles and had been in a lot of pain which had led to increased blood pressures and an increase in her antihypertensives. Most recently, given these symptoms have resolved, her blood pressures were noted to be low systolically 80s over 60s. She was also started on Jardiance at one point. Recommended she decrease torsemide to 1 tablet daily and she had held the carvedilol. Her blood pressures improved as well as her fatigue. On today's visit, her blood pressure is noted to be 118/50. Heart rate is noted to be 99 bpm. Recommend she reinitiate carvedilol at 3.125 mg orally twice daily and to continue to monitor her blood pressures. Assessment & Plan (10/12/2024 9:02 AM EST): Patient's blood pressure is well-controlled today. She will continue her current antihypertensive medication regimen as prescribed. Encounters Date Type Department Care Team Description 06/22/2025 Lab Requisition [facility] - Main Lab [address] [facility] [address] [place] [address] Kaylene Burns MD Unspecified diastolic (congestive) heart failure ([facility] V24, [facility] V28); Type 2 diabetes mellitus without complications ([facility] V24, [facility] V28); Primary pulmonary hypertension ([facility] V24, [facility] V28); Chronic obstructive pulmonary disease with (acute) exacerbation ([facility] V24, [facility] V28) 06/16/2025 Lab Requisition [facility] Lab [address] [place] [address] Kaylene Burns MD Unspecified diastolic (congestive) heart failure ([facility] V24, [facility] V28); Type 2 diabetes mellitus without complications ([facility] V24, [facility] V28); Primary pulmonary hypertension ([facility] V24[facility] V28); Chronic obstructive pulmonary disease with (acute) exacerbation ([facility] V24, [facility] V28) 06/15/2025 Lab Requisition [facility] [address] [place] [phone] Kaylene Burns MD Acute kidney failure, unspecified ([facility] V24) 06/14/2025 Lab Requisition [facility] Lab [address] [place] [phone] Kaylene Burns MD Unspecified diastolic (congestive) heart failure ([facility] V24, [facility] V28); Acute kidney failure, unspecified ([facility] V24); Chronic obstructive pulmonary disease with (acute) exacerbation ([facility] V24, [facility] V28); Primary pulmonary hypertension ([facility] V24[facility] V28); Type 2 diabetes mellitus without complications ([facility] V24, [facility] V28); Vitamin D deficiency, unspecified 06/06/2025 Lab Requisition [facility] [address] [place] [phone] Kaylene Burns MD Heart failure, unspecified ([facility] V24, [facility] V28); Chronic obstructive pulmonary disease, unspecified ([facility] V24, [facility] V28) 06/03/2025 Lab Requisition [facility] Lab [address] [place] [phone] Kaylene Burns MD Heart failure, unspecified ([facility] V24, [facility] V28); Chronic obstructive pulmonary disease, unspecified ([facility] V24, [facility] V28) 06/03/2025 Lab Requisition [facility] Lab [address] [place] [phone] Kaylene Burns MD Heart failure, unspecified ([facility] V24, [facility] V28); Chronic obstructive pulmonary disease, unspecified ([facility] V24, [facility] V28) 06/02/2025 Lab Requisition [facility] [address] [place] [phone] Kaylene Burns MD Urinary tract infection, site not specified 05/30/2025 Lab Requisition [facility] [address] [place] [phone] Kaylene Burns MD Heart failure, unspecified ([facility] V24, [facility] V28); Chronic obstructive pulmonary disease, unspecified ([facility] V24, [facility] V28) 05/28/2025 Lab Requisition [facility] [address] [place] [phone] Kaylene Burns MD Heart failure, unspecified ([facility] V24, [facility] V28); Chronic obstructive pulmonary disease, unspecified ([facility] V24, [facility] V28); Weakness 05/15/2025 Telephone [facility] Cardiology [facility] [address] [place] [address] Jay Delaney MD from Last 3 Months Immunizations Name Administration Dates Next Due Pfizer SARS-CoV-2 COVID-19, mRNA, LNP-S, preservative free 01/25/2021,01/13/2021 Surgical History Surgery Date Site/Laterality Comments HYSTERECTOMY PROCEDURE: HISTORICAL HYSTERECTOMY OTHER SURGICAL HISTORY PROCEDURE: ORTHO X-RAY OF CERVICAL SPINE (4 VIEWS) Medical History Medical History Date Comments Essential hypertension DX:Essent ial hypertension Diabetes 1.5, managed as typ e 2 ([facility] V24, [facility] V28) DX:Diabetes 1.5, managed as type 2 (HCC) ROBERTO (obstructive sleep apnea) DX :ROBERTO (obstructive sleep apnea) Allergic rhinitis due to pollen DX:Allergic rhinitis due to pollen Obesity (BMI 30.0-34.9) DX:Obesi ty (BMI 30.0-34.9) Heart failure ([facility] V24, [facility] V28) DX:Heart failure (HCC) Bronchitis DX:Bronchitis HTN (hypertension) DX:HTN (hyper tension) Diabetes mellitus ([facility] V 24, [facility] V28) DX:Diabetes mellitus ([facility]) Shingles DX:Shingles Severe obesity ([facility] V24, [facility] V28) DX:Severe obesity ([facility]) Somnolence DX:Somnolence Hypocalcemia DX:Hypocalcemia [id number] kidney inju ry ([facility] V24) DX:[id number] kidney i njury ([facility]) Cellulitis DX:Cellulitis Family History Medical History Relation Name Comments Other: drowning Brother Diabetes Daughter Hypertension Daughter Parkinson's Disease Father Stroke Father Heart attack Mother Relation Name Status Comments Brother Daughter Alive Father Mother Son 1 Alive Son 2 Alive Social History Tobacco Use Types Packs/Day Years Used Date Smoking Tobacco: Never Smokeless Tobacco: Never Alcohol Use Standard Drinks/Week Comments Never 0 (1 standard drink = 0.6 oz pur e alcohol) Comments Unknown Sex and Gender Information Value Date Recorded Sex Assigned at Not on file Legal Sex Female 8:52 PM EST Gender Identity Not on file Sexual Orientation Not on file Obstetrics History Last Filed Vital Signs Vital Sign Reading Time Taken Comments Blood Pressure 130/78 12/28/2024 9:29 AM EST Pulse 86 10/12/2024 8:07 AM EST Temperature - - Respiratory Rate - - Oxygen Saturation 92% 10/12/2024 8:07 AM EST Inhaled Oxygen Concentration - - Weight 103 kg (227 lb) 12/28/2024 9:29 AM EST Height 154.9 cm (5' 1 ) 12/28/2024 9:29 AM EST Body Mass Index 42.89 12/28/2024 9:29 AM EST Plan of Treatment Health Maintenance Due Date Last Done Comments Diabetes: Annual Foot Exam 02/13/1956 Diabetes: Annual Retina Eye Exam 02/13/1956 Zoster Vaccines (1 of 2) 1965 DTaP,Tdap,and Td Vaccines (2 - Td or Tdap) 02/23/2008 02/22/1998 RSV Immunization Adult Patients (1 - 1-dose 75+ series) 2021 Falls Risk Assessment 10/03/2022 Hepatitis C Screening 10/03/2022 Medicare Annual Wellness Visit 10/03/2022 Osteoporosis Screening (Bone Density Screening) 10/03/2022 Social Influencers of Health Screening 10/03/2022 Depression Screening 11/01/2024 COVID-19 Vaccine ( season) 2025 11/02/2023, 09/02/2021, 01/25/2021, Additional history exists Influenza Vaccine (#1) 2025 , 08/19/2023, 10/09/2022, Additional history exists Diabetes: Blood Sugar Control Test (HGBA1C) 12/15/2025 06/14/2025, 04/17/2024, 08/07/2019 Diabetes: Annual Urine Albumin-Creatinine Ratio (uACR) 04/16/2026 04/16/2025, 04/16/2025 Diabetes: Annual GFR (Glomerular Filtration Rate) 06/18/2026 06/18/2025, 06/16/2025, 06/14/2025, Additional history exists Hypertension/CHF/CAD Annual BMP Blood Test 06/18/2026 06/18/2025, 06/16/2025, 06/14/2025, Additional history exists Cholesterol Screening (Lipid Panel) 04/17/2029 04/17/2024 Pneumococcal Vaccine: 50+ Years Completed 12/29/2024, 01/31/1999, 01/31/1999 HIB Vaccines Aged Out No longer eligi ble based on patient's age to complete this topic HPV Vaccines Aged Out No longer eligi ble based on patient's age to complete this topic Hepatitis A Vaccines Aged Out No long er eligible based on patient's age to complete this topic Hepatitis B Vaccines Aged Out No long er eligible based on patient's age to complete this topic IPV Vaccines Aged Out No longer eligi ble based on patient's age to complete this topic MMR Vaccines Aged Out No longer eligi ble based on patient's age to complete this topic Meningococcal ACWY Vaccine Aged Out N o longer eligible based on patient's age to complete this topic Meningococcal B Vaccine Aged Out No l onger eligible based on patient's age to complete this topic RSV Immunization Patients Under 20 months Aged Out No longer eligible based on patient's age to complete this topic Varicella Vaccines Aged Out No longer eligible based on patient's age to complete this topic Procedures Procedure Name Priority Date/Time Associated Diagnosis Comments BASIC METABOLIC PANEL Routine 06/18/2025 8:42 AM EDT Unspecified diastolic (congestive) heart failure ([facility] V24, [facility]/H[facility] V28) Type 2 diabetes mellitus without complications ([facility] V24, [facility]/HCC V28) Primary pulmonary hypertension ([facility]/HCC V24, CMS/HCC V28) Chronic obstructive pulmonary disease with (acute) exacerbation (CMS/HCC V24, CMS/HCC V28) COMPLETE BLOOD COUNT Routine 06/18/2025 8:42 AM EDT Unspecified diastolic (congestive) heart failure (CMS/HCC V24, CMS/HCC V28) Type 2 diabetes mellitus without complications (CMS/HCC V24, CMS/HCC V28) Primary pulmonary hypertension (CMS/HCC V24, CMS/HCC V28) Chronic obstructive pulmonary disease with (acute) exacerbation (CMS/HCC V24, CMS/HCC V28) CREATININE, SERUM Routine 06/16/2025 5:3 0 AM EDT Acute kidney failure, unspecified ([facility] V24) HEMOGLOBIN A1C Routine 06/14/2025 7:18 AM EDT Unspecified diastolic (congestive) heart failure (CMS/HCC V24, CMS/HCC V28) Acute kidney failure, unspecified (CMS/HCC V24) Chronic obstructive pulmonary disease with (acute) exacerbation (CMS/HCC V24, CMS/HCC V28) Primary pulmonary hypertension (CMS/HCC V24, CMS/HCC V28) Type 2 diabetes mellitus without complications (CMS/HCC V24, CMS/HCC V28) Vitamin D deficiency, unspecified VITAMIN D 25 HYDROXY Routine 06/14/2025 7:18 AM EDT Unspecified diastolic (congestive) heart failure (CMS/HCC V24, CMS/HCC V28) Acute kidney failure, unspecified ([facility]CC V24) Chronic obstructive pulmonary disease with (acute) exacerbation (CMS/HCC V24, CMS/HCC V28) Primary pulmonary hypertension (CMS/HCC V24, CMS/HCC V28) Type 2 diabetes mellitus without complications (CMS/HCC V24, CMS/HCC V28) Vitamin D deficiency, unspecified VITAMIN B12 Routine 06/14/2025 7:18 AM EDT Unspecified diastolic (congestive) heart failure (CMS/HCC V24, CMS/HCC V28) Acute kidney failure, unspecified ([facility] V24) Chronic obstructive pulmonary disease with (acute) exacerbation (CMS/HCC V24, CMS/HCC V28) Primary pulmonary hypertension (CMS/HCC V24, CMS/HCC V28) Type 2 diabetes mellitus without complications (CMS/HCC V24, CMS/HCC V28) Vitamin D deficiency, unspecified FOLATE Routine 06/14/2025 7:18 AM EDT Unspecified diastolic (congestive) heart failure (CMS/HCC V24, CMS/HCC V28) Acute kidney failure, unspecified ([facility] V24) Chronic obstructive pulmonary disease with (acute) exacerbation (CMS/HCC V24, CMS/HCC V28) Primary pulmonary hypertension (CMS/HCC V24, CMS/HCC V28) Type 2 diabetes mellitus without complications (CMS/HCC V24, CMS/HCC V28) Vitamin D deficiency, unspecified MAGNESIUM Routine 06/14/2025 7:18 AM EDT Unspecified diastolic (congestive) heart failure (CMS/HCC V24, CMS/HCC V28) Acute kidney failure, unspecified (CMS/HCC V24) Chronic obstructive pulmonary disease with (acute) exacerbation (CMS/HCC V24, CMS/HCC V28) Primary pulmonary hypertension (CMS/HCC V24, CMS/HCC V28) Type 2 diabetes mellitus without complications ([facility] V24, [facility] V28) Vitamin D deficiency, unspecified COMPREHENSIVE METABOLIC PANEL Routine 06/14/2025 7:18 AM EDT Unspecified diastolic (congestive) heart failure ([facility] V24, [facility] V28) Acute kidney failure, unspecified ([facility] V24) Chronic obstructive pulmonary disease with (acute) exacerbation ([facility] V24, [facility] V28) Primary pulmonary hypertension ([facility] V24, [facility] V28) Type 2 diabetes mellitus without complications ([facility] V24, [facility] V28) Vitamin D deficiency, unspecified COMPLETE BLOOD COUNT Routine 06/14/2025 7:18 AM EDT Unspecified diastolic (congestive) heart failure ([facility] V24, [facility] V28) Acute kidney failure, unspecified ([facility] V24) Chronic obstructive pulmonary disease with (acute) exacerbation ([facility] V24, [facility] V28) Primary pulmonary hypertension ([facility] V24, [facility] V28) Type 2 diabetes mellitus without complications ([facility] V24, [facility] V28) Vitamin D deficiency, unspecified URINALYSIS WITH REFLEX MICROSCOPIC Routine 06/02/2025 3:00 AM EDT Urinary tract infection, site not specified URINALYSIS WITH REFLEX MICROSCOPIC Routine 06/02/2025 3:00 AM EDT Urinary tract infection, site not specified CULTURE URINE Routine 06/02/2025 3:00 AM EDT Urinary tract infection, site not specified BASIC METABOLIC PANEL Routine 05/31/2025 6:35 AM EDT Heart failure, unspecified ([facility] V24, [facility] V28) Chronic obstructive pulmonary disease, unspecified ([facility] V24, [facility] V28) COMPLETE BLOOD COUNT Routine 05/31/2025 6:35 AM EDT Heart failure, unspecified ([facility] V24, [facility] V28) Chronic obstructive pulmonary disease, unspecified (CMS/HCC V24, CMS/HCC V28) TRIIODOTHYRONINE FREE Routine 05/28/2025 7:12 AM EDT Heart failure, unspecified (CMS/HCC V24, CMS/HCC V28) Chronic obstructive pulmonary disease, unspecified (CMS/HCC V24, CMS/HCC V28) Weakness FREE THYROXINE WITH REFLEX TO FREE TRIIODOTHYRONINE Routine 05/28/2025 7:12 AM EDT Heart failure, unspecified (CMS/HCC V24, CMS/HCC V28) Chronic obstructive pulmonary disease, unspecified (CMS/HCC V24, CMS/HCC V28) Weakness FOLATE Routine 05/28/2025 7:12 AM EDT Heart failure, unspecified (CMS/HCC V24, CMS/HCC V28) Chronic obstructive pulmonary disease, unspecified (CMS/HCC V24, CMS/HCC V28) Weakness VITAMIN B12 Routine 05/28/2025 7:12 AM EDT Heart failure, unspecified (CMS/HCC V24, CMS/HCC V28) Chronic obstructive pulmonary disease, unspecified (CMS/HCC V24, CMS/HCC V28) Weakness THYROID STIMULATING HORMONE WITH REFLEX TO FREE T4 AND FREE T3 Routine 05/28/2025 7:12 AM EDT Heart failure, unspecified (CMS/HCC V24, CMS/HCC V28) Chronic obstructive pulmonary disease, unspecified (CMS/HCC V24, CMS/HCC V28) Weakness COMPREHENSIVE METABOLIC PANEL Routine 05/28/2025 7:12 AM EDT Heart failure, unspecified (CMS/HCC V24, CMS/HCC V28) Chronic obstructive pulmonary disease, unspecified (CMS/HCC V24, CMS/HCC V28) Weakness COMPLETE BLOOD COUNT Routine 05/28/2025 7:12 AM EDT Heart failure, unspecified (CMS/HCC V24, CMS/HCC V28) Chronic obstructive pulmonary disease, unspecified (CMS/HCC V24, CMS/HCC V28) Weakness LIPID PANEL Routine 04/17/2024 from Last 3 Months or Most Recently Relevant to Health Maintenance Results * (ABNORMAL) Complete blood count (06/18/2025 8:42 AM EDT) Only the most recent of4 resultswithin the time period is included. WBC 6.8 4.8 - 10.8 K/mcL LAB [facility] RBC 3.40(L) 3.80 - 4.80 M/mcL LAB HEMETOLOGY METHOD 06/18/2025 1:24 PM [facility] Hemoglobin 10.0(L) 11.5 - 16.0 g/dL LAB HEMETOLOGY METHOD 06/18/2025 1:24 PM [facility] Hematocrit 33.0(L) 35.0 - 47.0 % LAB [facility]OLOG[facility] MCV 97.9 79.0 - 98.0 FL LAB HEMETOLOGY METHOD 06/18/2025 1:24 PM [facility] MCH 29.7 27.0 - 32.0 pcg LAB HEMETOLOGY METHOD 06/18/2025 1:24 PM [facility] MCHC 30.3(L) 32.0 - 37.0 g/dL LAB HEMETOLOGY METHOD 06/18/2025 1:24 PM [facility] RDW 15.1(H) 11.0 - 15.0 % LAB HEMETOLOGY METHOD 06/18/2025 1:24 PM [facility] Platelets 195 130 - 400 K/mcL LAB HEMETOLOGY METHOD 06/18/2025 1:24 PM [facility] MPV 12.0(H) 7.0 - 11.0 FL LAB HEMETOLOGY METHOD 06/18/2025 1:24 PM EDT [facility] NRBC 0.0 <1.0 % LAB HEMETOLOGY METHOD 06/18/2025 1:24 PM EDT [facility] NRBC Absolute 0.00 <0.10 K/mcL LAB HEMETOLOGY METHOD 06/18/2025 1:24 PM EDT [facility] Blood Venous blood specimen / Unknown Venipuncture / Unknown 06/18/2025 8:42 AM EDT 06/18/2025 11:17 AM EDT us Kaylene Burns MD LAB BLOOD ORDERABLES Fin al Result [facility] [address] [place] [address], * (ABNORMAL) Basic metabolic panel (06/18/2025 8:42 AM EDT) Only the most recent of2 resultswithin the time period is included. Sodium 141 133 - 145 mmol/L LAB CHEMISTRY METHOD 06/18/2025 12:49 PM [facility] Potassium 4.6 3.5 - 5.5 mmol/L LAB CHEMISTRY METHOD 06/18/2025 12:49 PM [facility] Chloride 103 96 - 110 mmol/L LAB CHEMISTRY METHOD 06/18/2025 12:49 PM [facility] CO2 29 21 - 32 mmol/L LAB CHEMISTRY METHOD 06/18/2025 12:49 PM [facility] Anion Gap 9 3 - 11 LAB CHEMISTRY METHOD 06/18/2025 12:49 PM [facility] Glucose 174(H) 70 - 100 mg/dL LAB CHEMISTRY METHOD 06/18/2025 12:49 PM [facility] BUN 55(H) 5 - 25 mg/dL LAB CHEMISTRY METHOD 06/18/2025 12:49 PM EDT [facility] Creatinine 1.92(H) 0.50 - 1.10 mg/dL LAB CHEMISTRY METHOD 06/18/2025 12:49 PM EDT [facility] eGFR 26(L) >=60 mL/min/1. 73m2 LAB CHEMISTRY METHOD 06/18/2025 12:49 PM EDT [facility] Comment:Calculation based on the Chronic Kidney Disease Epidemiology Collaboration (CKD-EPI) equation refit without adjustment for race. BUN/Creatinine Ratio 28.6 LAB CHEMISTRY METHOD 06/18/2025 12:49 PM EDT [facility] Calcium 7.2(L) 8.5 - 10.5 mg/dL LAB CHEMISTRY METHOD 06/18/2025 12:49 PM EDT [facility] Blood Venous blood specimen / Unknown Venipuncture / Unknown 06/18/2025 8:42 AM EDT 06/18/2025 11:17 AM EDT us Kaylene Burns MD LAB BLOOD ORDERABLES Fin al Result [facility] [address] [place] [address], * (ABNORMAL) Creatinine (06/16/2025 5:30 AM EDT) Creatinine 1.67(H) 0.50 - 1.10 mg/dL LAB CHEMISTRY METHOD 06/16/2025 9:01 AM EDT [facility] eGFR 31(L) >=60 mL/min/1. 73m2 LAB CHEMISTRY METHOD 06/16/2025 9:01 AM EDT [facility] Comment:Calculation based on the Chronic Kidney Disease Epidemiology Collaboration (CKD-EPI) equation refit without adjustment for race. Blood Venous blood specimen / Unknown Venipuncture / Unknown 06/16/2025 5:30 AM EDT 06/16/2025 8:04 AM EDT Kaylene Burns MD LAB BLOOD ORDERABLES Fin al Result Performing Organization Address [facility] Co de Phone Number [facility] [address] [place] [address], [place] [phone] * Vitamin D 25 hydroxy (06/14/2025 7:18 AM EDT) [facility] Vit D, 25-Hydroxy 57.9 30.0 - 80.0 ng/mL LAB CHEMISTRY METHOD 06/14/2025 12:02 PM EDT [facility] Blood Venous blood specimen / Unknown Venipuncture / Unknown 06/14/2025 7:18 AM EDT 06/14/2025 8:30 AM EDT Kaylene Burns MD LAB BLOOD ORDERABLES Fin al Result Performing Organization Address [facility] de Phone Number [facility] [address] [place] [address], [place] [phone] * (ABNORMAL) Magnesium (06/14/2025 7:18 AM EDT) [facility] Magnesium 1.8(L) 1.9 - 2.6 mg/dL LAB CHEMISTRY METHOD 06/14/2025 9:25 AM EDT [facility] Blood Venous blood specimen / Unknown Venipuncture / Unknown 06/14/2025 7:18 AM EDT 06/14/2025 8:30 AM EDT Kaylene Burns MD LAB BLOOD ORDERABLES Fin al Result Performing Organization Address [facility] Co de Phone Number [facility] [address] [place] [address], [place] [phone] * (ABNORMAL) Hemoglobin A1c (06/14/2025 7:18 AM EDT) Hemoglobin A1C 8.4(H) <6.5 % LAB CHEMISTRY METHOD 06/14/2025 11:00 AM EDT [facility] Mean Bld Glu Estim. 194 mg/dL LAB CHEMISTRY METHOD 06/14/2025 11:00 AM EDT [facility] Blood Venous blood specimen / Unknown Venipuncture / Unknown 06/14/2025 7:18 AM EDT 06/14/2025 8:30 AM EDT Kaylene Burns MD LAB BLOOD ORDERABLES Fin al Result Performing Organization Address City/[facility]/ZIP Co de Phone Number [facility] [address] [place] [address], [place] [phone] * (ABNORMAL) Folate (06/14/2025 7:18 AM EDT) Only the most recent of2 resultswithin the time period is included. Pathologist [facility] Folate >20.0(H) 2.8 - 17.0 ng/ml LAB CHEMISTRY METHOD 06/14/2025 9:38 AM EDT [facility] Blood Venous blood specimen / Unknown Venipuncture / Unknown 06/14/2025 7:18 AM EDT 06/14/2025 8:30 AM EDT Kaylene Burns MD LAB BLOOD ORDERABLES Fin al Result [facility] [address] [place] [address], [place] [phone] * (ABNORMAL) Vitamin B12 (06/14/2025 7:18 AM EDT) Only the most recent of2 resultswithin the time period is included. Vitamin B-12 952(H) 250 - 900 pcg/mL LAB CHEMISTRY METHOD 06/14/2025 9:48 AM EDT [facility] Blood Venous blood specimen / Unknown Venipuncture / Unknown 06/14/2025 7:18 AM EDT 06/14/2025 8:30 AM EDT us Kaylene Burns MD LAB BLOOD ORDERABLES Fin al Result [facility] [address] [place] [address], [place] [phone] * (ABNORMAL) Comprehensive metabolic panel (06/14/2025 7:18 AM EDT) Only the most recent of2 resultswithin the time period is included. Sodium 143 133 - 145 mmol/L LAB CHEMISTRY METHOD 06/14/2025 9:46 AM [facility] Potassium 4.5 3.5 - 5.5 mmol/L LAB CHEMISTRY METHOD 06/14/2025 9:46 AM [facility] Chloride 107 96 - 110 mmol/L LAB CHEMISTRY METHOD 06/14/2025 9:46 AM [facility] Comment:Results verified by repeat testing CO2 32 21 - 32 mmol/L LAB CHEMISTRY METHOD 06/14/2025 9:46 AM [facility] Anion Gap 4 3 - 11 LAB CHEMISTRY METHOD 06/14/2025 9:46 AM [facility] Glucose 141(H) 70 - 100 mg/dL LAB CHEMISTRY METHOD 06/14/2025 9:46 AM [facility] BUN 73(H) 5 - 25 mg/dL LAB CHEMISTRY METHOD 06/14/2025 9:46 AM [facility] Creatinine 1.73(H) 0.50 - 1.10 mg/dL LAB CHEMISTRY METHOD 06/14/2025 9:46 AM [facility] eGFR 30(L) >=60 mL/min/1. 73m2 LAB CHEMISTRY METHOD 06/14/2025 9:46 AM [facility] Comment:Calculation based on the Chronic Kidney Disease Epidemiology Collaboration (CKD-EPI) equation refit without adjustment for race. BUN/Creatinine Ratio 42.2 LAB CHEMISTRY METHOD 06/14/2025 9:46 AM [facility] Calcium 7.6(L) 8.5 - 10.5 mg/dL LAB CHEMISTRY METHOD 06/14/2025 9:46 AM [facility] AST (SGOT) 19 10 - 42 unit/L LAB CHEMISTRY METHOD 06/14/2025 9:46 AM [facility] ALT (SGPT) 13 10 - 60 unit/L LAB CHEMISTRY METHOD 06/14/2025 9:46 AM [facility] Alkaline Phosphatase 58 42 - 121 unit/L LAB CHEMISTRY METHOD 06/14/2025 9:46 AM [facility] Total Protein 5.3(L) 6.0 - 8.0 g/dL LAB CHEMISTRY METHOD 06/14/2025 9:46 AM [facility] Albumin 2.6(L) 3.2 - 5.0 g/dL LAB CHEMISTRY METHOD 06/14/2025 9:46 AM [facility] Total Bilirubin 0.6 0.0 - 1.4 mg/dL LAB CHEMISTRY METHOD 06/14/2025 9:46 AM [facility] Blood Venous blood specimen / Unknown Venipuncture / Unknown 06/14/2025 7:18 AM EDT 06/14/2025 8:30 AM EDT us Kaylene Burns MD LAB BLOOD ORDERABLES Fin al Result [facility] [address] [place] [address], * (ABNORMAL) Urinalysis with reflex microscopic (06/02/2025 3:00 AM EDT) Specific Galvin Urine 1.010 1.003 - 1.030 LAB URINALYSIS - AUTOMATED METHOD 06/02/2025 11:41 AM [facility] pH, Urine 6.0 5.0 - 8.0 pH LAB URINALYSIS - AUTOMATED METHOD 06/02/2025 11:41 AM [facility] Leukocytes, Urine Large(A) Negative LAB URINALYSIS - AUTOMATED METHOD 06/02/2025 11:41 AM [facility] Nitrite, Urine Negative Negative LAB URINALYSIS - AUTOMATED METHOD 06/02/2025 11:41 AM [facility] Protein, Urine 30(A) <=Trace mg/dL LAB URINALYSIS - AUTOMATED METHOD 06/02/2025 11:41 AM [facility] Glucose, Urine 250(A) Negative mg/dL LAB URINALYSIS - AUTOMATED METHOD 06/02/2025 11:41 AM [facility] Ketones, Urine Negative Negative mg/dL LAB URINALYSIS - AUTOMATED METHOD 06/02/2025 11:41 AM [facility] Urobilinogen , Urine 0.2 0.2 - 1.0 mg/dL LAB URINALYSIS - AUTOMATED METHOD 06/02/2025 11:41 AM [facility] Bilirubin, Urine Negative Negative LAB URINALYSIS - AUTOMATED METHOD 06/02/2025 11:41 AM [facility] Blood, Urine Small(A) Negative LAB URINALYSIS - AUTOMATED METHOD 06/02/2025 11:41 AM [facility] RBC, Urine 2.9 0 - 4 /HPF LAB URINALYSIS - AUTOMATED METHOD 06/02/2025 11:41 AM [facility] WBC, Urine 622.7(H) 0 - 4 /HPF LAB URINALYSIS - AUTOMATED METHOD 06/02/2025 11:41 AM [facility] Squamous Epithelial, Urine 2 0 - 60 /LPF LAB URINALYSIS - AUTOMATED METHOD 06/02/2025 11:41 AM EDT [facility] Bacteria, Urine Negative Negative /HPF LAB URINALYSIS - AUTOMATED METHOD 06/02/2025 11:41 AM EDT [facility] Hyaline Casts, Urine 4.4(H) 0 - 3 /LPF LAB URINALYSIS - AUTOMATED METHOD 06/02/2025 11:41 AM EDT [facility] Yeast, Urine Present(A) None /HPF LAB URINALYSIS - AUTOMATED METHOD 06/02/2025 11:41 AM EDT [facility] Urine Urine specimen obtained by clean catch procedure / Unknown Non-blood Collection / Unknown 06/02/2025 3:00 AM EDT 06/02/2025 10:49 AM EDT Kaylene Burns MD LAB URINE ORDERABLES Fin al Result Performing Organization Address [facility]/ZIP Co de Phone Number [facility] [address] [place] [address], [place] [phone] * Culture urine (06/02/2025 3:00 AM EDT) Pathologist [facility] Culture, Urine No growth 06/03/2025 11:11 AM EDT [facility] Urine Urine specimen obtained by clean catch procedure / Unknown Non-blood Collection / Unknown 06/02/2025 3:00 AM EDT 06/02/2025 10:49 AM EDT Kaylene Burns MD LAB MICROBIOLOGY - GENER AL ORDERABLES Final Result Performing Organization Address [facility]/ZIP Co de Phone Number [facility] [address] [place] [address], [place] [phone] * (ABNORMAL) Thyroid stimulating hormone with reflex to free t4 and free t3 (05/28/2025 7:12 AM EDT) TSH 5.26(H) 0.40 - 4.00 mcIU/mL LAB CHEMISTRY METHOD 05/28/2025 5:28 PM EDT [facility] Blood Venous blood specimen / Unknown Venipuncture / Unknown 05/28/2025 7:12 AM EDT 05/28/2025 10:18 AM EDT Kaylene Burns MD LAB BLOOD ORDERABLES Fin al Result Performing Organization Address [facility] de Phone Number [facility] [address] [place] [address], [place] [phone] * Free thyroxine with reflex to free triiodothyronine (05/28/2025 7:12 AM EDT) Free T4 1.10 0.70 - 1.80 ng/dL LAB CHEMISTRY METHOD 05/28/2025 6:03 PM EDT [facility] Blood Venous blood specimen / Unknown Venipuncture / Unknown 05/28/2025 7:12 AM EDT 05/28/2025 10:18 AM EDT Kaylene Burns MD LAB BLOOD ORDERABLES Fin al Result Performing Organization Address [facility] de Phone Number [facility] [address] [place] [address], [place] [phone] * Triiodothyronine free (05/28/2025 7:12 AM EDT) T3, Free 243 230 - 420 pcg/dL LAB CHEMISTRY METHOD 05/28/2025 7:36 PM EDT [facility] Blood Venous blood specimen / Unknown Venipuncture / Unknown 05/28/2025 7:12 AM EDT 05/28/2025 10:18 AM EDT Kaylene Burns MD LAB BLOOD ORDERABLES Fin al Result Performing Organization Address [facility] Co de Phone Number [facility] [address] [place] [address], * Lipid panel (04/17/2024) LDL/HDL Ratio 0 Comment:No Interpretation Triglycerides 0 mg/dL Comment:No Interpretation Cholesterol 0 mg/dL Comment:No Interpretation HDL 0 mg/dL Comment:No Interpretation LDL Cholesterol 0 mg/dL Comment:No Interpretation Blood Venous blood specimen / Unknown Historical Provider LAB BLOOD ORDERABLES Junie l Result from Last 3 Months or Most Recently Relevant to Health Maintenance Insurance [employer] [place] - [place] Care Teams Civil Engineer'S Aide Relationship Specialty Start Date End Date Flash Taylor MD [address] [place] [address] PCP - General 12/02/07
--- OUTSIDE RECORDS SUMMARY | 2025-07-24 14:04 | XMS_ITS | Encounter Summary ---
Author Organization [facility], Address [address] [address] [place] [address] Phone Care Team Providers Care Psychiatric Clinician Name Role Phone Flash Taylor MD Primary Care Provider [phone] Reason for Visit * Reason Comments Med Refill Encounter Details Date Type Department Care Team (Late Contact Info) Description 03/19/2021 Refill [facility] [address] [place] [address] Jay Ordoñez MD [address] [place] [address] [place] [address] Social History Tobacco Use Types Packs/Day Years Used Date Smoking Tobacco: Never Comments Unknown Sex and Gender Information Value Date Recorded Sex Assigned at Not on file Legal Sex Female 4:36 PM EST Gender Identity Not on file Sexual Orientation Not on file documented as of this encounter Plan of Treatment Upcoming Encounters Date Type Department Care Team ([facility] Contact Info) Description 08/29/2025 4:00 PM EDT Office Visit [facility], [address] [place] [phone] Jay Ordoñez MD [address] [place] [address] [place] [address] documented as of this encounter Visit Diagnoses Not on filedocumented in this encounter Care Teams Psychiatric Clinician Relationship Specialty Start Date End Date Flash Taylor MD [place] [facility] [address] PCP - General 09/05/19 documented as of this encounter
--- OUTSIDE RECORDS SUMMARY | 2025-07-24 14:04 | XMS_ITS | Encounter Summary ---
Author Organization [employer] Address [address] [place] [address] Care Team Providers Care Detonator Maker Name Role Phone Flash Taylor MD Primary Care Provider [phone] Encounter Details Date Type Department Care Team (Late st Contact Info) Description 06/16/2025 Lab Requisition [facility] - Main Lab 299 [facility] [place] [address] Kaylene Burns MD [address] [phone] Unspecified diastolic (congestive) heart failure ([facility] V24, [facility] V28); Type 2 diabetes mellitus without complications ([facility] V24, [facility] V28); Primary pulmonary hypertension ([facility] V24, [facility] V28); Chronic obstructive pulmonary disease with (acute) exacerbation ([facility] [place], [facility] V28) Social History Tobacco Use Types Packs/Day Years [...] Procedure Name Priority Date/Time Associated Diagnosis Comments COMPLETE BLOOD COUNT Routine 06/18/2025 8:42 AM EDT Unspecified diastolic (congestive) heart failure ([facility] V24, [facility] V28) Type 2 diabetes mellitus without complications ([facility] V24, [facility] V28) Primary pulmonary hypertension ([facility] V24, [facility] V28) Chronic obstructive pulmonary disease with (acute) exacerbation ([facility] V24, [facility] V28) BASIC METABOLIC PANEL Routine 06/18/2025 8:42 AM EDT Unspecified diastolic (congestive) heart failure ([facility] V24, [facility] V28) Type 2 diabetes mellitus without complications ([facility] V24, [facility] V28) Primary pulmonary hypertension ([facility] V24, [facility] V28) Chronic obstructive pulmonary disease with (acute) exacerbation ([facility] V24, [facility] V28) documented in this encounter Results * (ABNORMAL) Basic metabolic panel (06/18/2025 8:42 AM EDT) Sodium 141 133 - 145 mmol/L LAB CHEMISTRY METHOD 06/18/2025 12:49 PM [facility] Potassium 4.6 3.5 - 5.5 mmol/L LAB CHEMISTRY METHOD 06/18/2025 12:49 PM [facility] Chloride 103 96 - 110 mmol/L LAB CHEMISTRY METHOD 06/18/2025 12:49 PM [facility] CO2 29 21 - 32 mmol/L LAB CHEMISTRY METHOD 06/18/2025 12:49 PM [facility] Anion Gap 9 3 - 11 LAB CHEMISTRY METHOD 06/18/2025 12:49 PM [facility] Glucose 174(H) 70 - 100 mg/dL LAB CHEMISTRY METHOD 06/18/2025 12:49 PM [facility] BUN 55(H) 5 - 25 mg/dL LAB CHEMISTRY METHOD 06/18/2025 12:49 PM [facility] Creatinine 1.92(H) 0.50 - 1.10 mg/dL LAB CHEMISTRY METHOD 06/18/2025 12:49 PM [facility] eGFR 26(L) >=60 mL/min/1. 73m2 LAB CHEMISTRY METHOD 06/18/2025 12:49 PM EDT [facility] Comment:Calculation based on the Chronic Kidney Disease Epidemiology Collaboration (CKD-EPI) equation refit without adjustment for race. BUN/Creatinine Ratio 28.6 LAB CHEMISTRY METHOD 06/18/2025 12:49 PM EDT [facility] Calcium 7.2(L) 8.5 - 10.5 mg/dL LAB CHEMISTRY METHOD 06/18/2025 12:49 PM EDT [facility] Blood Venous blood specimen / Unknown Venipuncture / Unknown 06/18/2025 8:42 AM EDT 06/18/2025 11:17 AM EDT us Kaylene Burns MD LAB BLOOD ORDERABLES Fin al Result [facility] [address] [place] [address], * (ABNORMAL) Complete blood count (06/18/2025 8:42 AM EDT) WBC 6.8 4.8 - 10.8 K/mcL LAB HEMETOLOGY METHOD 06/18/2025 1:24 PM EDT [facility] RBC 3.40(L) 3.80 - 4.80 M/mcL LAB HEMETOLOGY METHOD 06/18/2025 1:24 PM EDT [facility] Hemoglobin 10.0(L) 11.5 - 16.0 g/dL LAB HEMETOLOGY METHOD 06/18/2025 1:24 PM EDT [facility] Hematocrit 33.0(L) 35.0 - 47.0 % LAB HEMETOLOGY METHOD 06/18/2025 1:24 PM EDT [facility] MCV 97.9 79.0 - 98.0 FL LAB HEMETOLOGY METHOD 06/18/2025 1:24 PM EDT [facility] MCH 29.7 27.0 - 32.0 pcg LAB HEMETOLOGY METHOD 06/18/2025 1:24 PM EDT [facility] MCHC 30.3(L) 32.0 - 37.0 g/dL LAB HEMETOLOGY METHOD 06/18/2025 1:24 PM EDT [facility] RDW 15.1(H) 11.0 - 15.0 % LAB HEMETOLOGY METHOD 06/18/2025 1:24 PM EDT [facility] Platelets 195 130 - 400 K/mcL LAB HEMETOLOGY METHOD 06/18/2025 1:24 PM EDT [facility] MPV 12.0(H) 7.0 - 11.0 FL LAB HEMETOLOGY METHOD 06/18/2025 1:24 PM EDT [facility] NRBC 0.0 <1.0 % LAB HEMETOLOGY METHOD 06/18/2025 1:24 PM EDT [facility] NRBC Absolute 0.00 <0.10 K/mcL LAB HEMETOLOGY METHOD 06/18/2025 1:24 PM EDT [facility] Blood Venous blood specimen / Unknown Venipuncture / Unknown 06/18/2025 8:42 AM EDT 06/18/2025 11:17 AM EDT us Kaylene Burns MD LAB BLOOD ORDERABLES Fin al Result [facility] [address] [place] [address], documented in this encounter Visit Diagnoses Diagnosis Unspecified diastolic (congestive) heart failure (CMS/HCC V24, [facility] V28) Type 2 diabetes mellitus without complications (CMS/HCC V24, [facility] V28) Primary pulmonary hypertension (CMS/HCC V24, [facility] V28) Primary pulmonary hypertension Chronic obstructive pulmonary disease with (acute) exacerbation (CMS/HCC V24, [facility] V28) documented in this encounter Care Teams Detonator Maker Relationship Specialty Start Date End Date Flash Taylor MD [address] [place] [phone] PCP - General 12/02/07 documented as of this encounter
--- OUTSIDE RECORDS SUMMARY | 2025-07-24 14:04 | XMS_ITS | Encounter Summary ---
Author Organization [employer] Address [address] [place] [address] Care Team Providers Care Consumer Marketing Manager Name Role Phone Flash Taylor MD Primary Care Provider [phone] Encounter Details Date Type Department Care Team (Late st Contact Info) Description 06/03/2025 Lab Requisition [facility] - Main Lab 299 [facility] [place] [address] Kaylene Burns MD [address] [phone] Heart failure, unspecified (CMS/HCC V24, CMS/HCC V28); Chronic obstructive pulmonary disease, unspecified (CMS/HCC V24, CMS/HCC V28) Social History Tobacco Use Types Packs/Day [...] on file documented as of this encounter Visit Diagnoses Diagnosis Heart failure, unspecified (CMS/HCC V24, CMS/HCC V28) Heart failure, unspecified Chronic obstructive pulmonary disease, unspecified (CMS/HCC V24, CMS/HCC V28) documented in this encounter Care Teams Consumer Marketing Manager Relationship Specialty Start Date End Date Flash Taylor MD [address] [place] [phone] PCP - General 12/02/07 documented as of this encounter
--- OUTSIDE RECORDS SUMMARY | 2025-07-24 14:04 | XMS_ITS | Encounter Summary ---
Author Organization [facility], Address [address] [address] [place] [address] Phone Care Team Providers Care Encephalographer Name Role Phone Flash Taylor MD Primary Care Provider [phone] Encounter Details Date Type Department Care Team (Late st Contact Info) Description 12/28/2024 Documentation Only [facility] [address] [place] [address] [place] [address] [place] [phone] Social History Tobacco Use Types Packs/Day Years [...] Team (Late st Contact Info) Description 08/29/2025 4:00 PM EDT Office Visit [facility] [address] [place] [address] Jay Ordoñez MD [address] [place] [address] [place] [address] documented as of this encounter Visit Diagnoses Not on filedocumented in this encounter Care Teams Encephalographer Relationship Specialty Start Date End Date Flash Taylor MD [address] PCP - General 09/05/19 documented as of this encounter
--- OUTSIDE RECORDS SUMMARY | 2025-07-24 14:04 | XMS_ITS | Encounter Summary ---
Author Organization [facility], Address PO [facility] [address] [place] [address] Phone Care Team Providers Care Hydraulic Strainer Operator Name Role Phone Flash Taylor MD Primary Care Provider [phone] Reason for Visit * Reason Comments Med Refill Encounter Details Date Type Department Care Team (Late st Contact Info) Description 02/23/2020 Refill [facility] [address] [place] [address] Kirti Mcghee MD Social History Tobacco Use Types Packs/Day Years [...] Office Visit [facility], [address] [place] [address] Jay Ordoñez MD [address] [place] [address] [place] [phone] documented as of this encounter Visit Diagnoses Not on filedocumented in this encounter Care Teams Hydraulic Strainer Operator Relationship Specialty Start Date End Date Flash Taylor MD [employer] [facility] [address] [place] [address] PCP - General 09/05/19 documented as of this encounter
--- OUTSIDE RECORDS SUMMARY | 2025-07-24 14:04 | XMS_ITS | Encounter Summary ---
Author Organization [employer] Address [address] [place] [address] Care Team Providers Care Pig Farm Manager Name Role Phone Flash Taylor MD Primary Care Provider [phone] Encounter Details Date Type Department Care Team (Late st Contact Info) Description 06/15/2025 Lab Requisition [facility] - Main Lab 299 [facility] [place] [address] Kaylene Burns MD [address] [phone] Acute kidney failure, unspecified (CMS/HCC V24) Social History Tobacco Use Types Packs/Day Years [...] Procedure Name Priority Date/Time Associated Diagnosis Comments CREATININE, SERUM Routine 06/16/2025 5:3 0 AM EDT Acute kidney failure, unspecified (CMS/HCC V24) documented in this encounter Results * (ABNORMAL) Creatinine (06/16/2025 5:30 AM EDT) Creatinine 1.67(H) 0.50 - 1.10 mg/dL LAB CHEMISTRY METHOD 06/16/2025 9:01 AM EDT [facility] eGFR 31(L) >=60 mL/min/1. 73m2 LAB CHEMISTRY METHOD 06/16/2025 9:01 AM EDT [facility] Comment:Calculation based on the Chronic Kidney Disease Epidemiology Collaboration (CKD-EPI) equation refit without adjustment for race. Blood Venous blood specimen / Unknown Venipuncture / Unknown 06/16/2025 5:30 AM EDT 06/16/2025 8:04 AM EDT us Kaylene Burns MD LAB BLOOD ORDERABLES Fin al Result [facility] [address] [place] [address], documented in this encounter Visit Diagnoses Diagnosis Acute kidney failure, unspecified (CMS/HCC V24) Acute kidney failure, unspecified documented in this encounter Care Teams Pig Farm Manager Relationship Specialty Start Date End Date Flash Taylor MD [address] [place] [phone] PCP - General 12/02/07 documented as of this encounter
--- OUTSIDE RECORDS SUMMARY | 2025-07-24 14:04 | XMS_ITS ---
Author Name [facility] Care Team Organization Name Specialty Phone Email Start Date End Da te [facility] JOSE ANGEL RANDALL Primary Care 09/08/2022 06/19/20 24
--- OUTSIDE RECORDS SUMMARY | 2025-07-24 14:04 | XMS_ITS | Encounter Summary ---
Author Organization [employer] Address [address] [place] [address] Care Team Providers Care Shopper Insights Manager Name Role Phone Flash Taylor MD Primary Care Provider [phone] Encounter Details Date Type Department Care Team (Late st Contact Info) Description 05/30/2025 Lab Requisition [facility] - Main Lab 299 [facility] [place] [address] Kaylene Burns MD [address] [phone] Heart failure, unspecified (CMS/HCC V24, CMS/HCC V28); [...] Associated Diagnosis Comments COMPLETE BLOOD COUNT Routine 05/31/2025 6:35 AM EDT Heart failure, unspecified (CMS/HCC V24, CMS/HCC V28) Chronic obstructive pulmonary disease, unspecified (CMS/HCC V24, CMS/HCC V28) BASIC METABOLIC PANEL Routine 05/31/2025 6:35 AM EDT Heart failure, unspecified (CMS/HCC V24, CMS/HCC V28) Chronic obstructive pulmonary disease, unspecified ([facility] V24, [facility] V28) documented in this encounter Results * (ABNORMAL) Basic metabolic panel (05/31/2025 6:35 AM EDT) Sodium 137 133 - 145 mmol/L LAB CHEMISTRY METHOD 05/31/2025 11:51 AM [facility] Potassium 4.4 3.5 - 5.5 mmol/L LAB CHEMISTRY METHOD 05/31/2025 11:51 AM [facility] Chloride 92(L) 96 - 110 mmol/L LAB CHEMISTRY METHOD 05/31/2025 11:51 AM [facility] CO2 36(H) 21 - 32 mmol/L LAB CHEMISTRY METHOD 05/31/2025 11:51 AM [facility] Anion Gap 9 3 - 11 LAB CHEMISTRY METHOD 05/31/2025 11:51 AM [facility] Glucose 160(H) 70 - 100 mg/dL LAB CHEMISTRY METHOD 05/31/2025 11:51 AM [facility] BUN 127(H) 5 - 25 mg/dL LAB CHEMISTRY METHOD 05/31/2025 11:51 AM [facility] Creatinine 2.41(H) 0.50 - 1.10 mg/dL LAB CHEMISTRY METHOD 05/31/2025 11:51 AM [facility] eGFR 20(L) >=60 mL/min/1. 73m2 LAB CHEMISTRY METHOD 05/31/2025 11:51 AM [facility] Comment:Calculation based on the Chronic Kidney Disease Epidemiology Collaboration (CKD-EPI) equation refit without adjustment for race. BUN/Creatinine Ratio 52.7 LAB CHEMISTRY METHOD 05/31/2025 11:51 AM [facility] Calcium 6.5(L) 8.5 - 10.5 mg/dL LAB CHEMISTRY METHOD 05/31/2025 11:51 AM EDT [facility] Blood Venous blood specimen / Unknown Venipuncture / Unknown 05/31/2025 6:35 AM EDT 05/31/2025 10:54 AM EDT us Kaylene Burns MD LAB BLOOD ORDERABLES Fin al Result [facility] [address] [place] [address], * (ABNORMAL) Complete blood count (05/31/2025 6:35 AM EDT) WBC 9.4 4.8 - 10.8 K/mcL LAB HEMETOLOGY METHOD 05/31/2025 11:23 AM EDT [facility] RBC 3.20(L) 3.80 - 4.80 M/mcL LAB HEMETOLOGY METHOD 05/31/2025 11:23 AM EDT [facility] Hemoglobin 9.5(L) 11.5 - 16.0 g/dL LAB HEMETOLOGY METHOD 05/31/2025 11:23 AM T [facility] Hematocrit 30.8(L) 35.0 - 47.0 % LAB HEMETOLOGY METHOD [facility]/31[facility]2025 [facility] MCV 97.2 79.0 - 98.0 FL LAB HEMETOLOGY METHOD 05/31/2025 11:23 AM EDT [facility] MCH 30.0 27.0 - 32.0 pcg LAB HEMETOLOGY METHOD 05/31/2025 11:23 AM T [facility] MCHC 30.8(L) 32.0 - 37.0 g/dL LAB HEMETOLOGY METHOD 05/31/2025 11:23 AM [facility] RDW 14.5 11.0 - 15.0 % LAB HEMETOLOGY METHOD 05/31/2025 11:23 AM EDT [facility] Platelets 261 130 - 400 K/mcL LAB HEMETOLOGY METHOD 05/31/2025 11:23 AM EDT [facility] MPV 11.5(H) 7.0 - 11.0 FL LAB HEMETOLOGY METHOD 05/31/2025 11:23 AM EDT [facility] NRBC 0.0 <1.0 % LAB HEMETOLOGY METHOD 05/31/2025 11:23 AM EDT [facility] NRBC Absolute 0.00 <0.10 K/mcL LAB HEMETOLOGY METHOD 05/31/2025 11:23 AM EDT [facility] Blood Venous blood specimen / Unknown Venipuncture / Unknown 05/31/2025 6:35 AM EDT 05/31/2025 10:54 AM EDT Kaylene Burns MD LAB BLOOD ORDERABLES Fin al Result [facility] [address] [place] [address], documented in this encounter Visit Diagnoses Diagnosis Heart failure, unspecified (CMS/HCC V24, CMS/HCC V28) Heart failure, unspecified Chronic obstructive pulmonary disease, unspecified (CMS/HCC V24, CMS/HCC V28) documented in this encounter Care Teams Shopper Insights Manager Relationship Specialty Start Date End Date Flash Taylor MD [address] [place] [phone] PCP - General 12/02/07 documented as of this encounter
--- OUTSIDE RECORDS SUMMARY | 2025-07-24 14:04 | XMS_ITS | Clinical Summary ---
Author Organization [facility], Address [address] [place] [address] [place] [address] Phone Care Team Providers Care Equipment Analyst Name Role Phone Flash Taylor MD Primary Care Provider [phone] Allergies Active Allergy Reactions Criticality Noted Date [...] were inactivated after the 08/01/24 Regulatory Import Immunizations Immunization Administration Dates Next Due Influenza [...] Visit [facility] [place], [address] [place] [phone] Jay Ordoñez MD [address] [facility] [place] [phone] Health Maintenance Due Date Last Done Comments Pneumococcal Vaccine: 50+ Years (1 of 2 - PCV) 1964 01/31/1999, 01/31/1999 Diabetes: Ophthalmology Exam 12/04/2019 Diabetes: Pedal Pulse Checked 12/04/2019 Diabetes: Sensory Foot Exam 12/04/2019 Diabetes: Visual Foot Exam 12/04/2019 Diabetes: Hemoglobin A1C 07/18/20242 024, 08/07/2019, 01/20/2018 Influenza Vaccine (#1) 2025 2, 07/25/2020, 08/16/2019, Additional history exists Pneumococcal Vaccine: Peds (0 to 5 Years) and At-Risk Patients (6 [...] PM EDT) Hemoglobin A1C 9.8(H) (4-6) % [facility] Comment: HEMOGLOBIN A1C(%) GLUCOSE CONTROL INDEX <6% EXCELLENT 6-7% VERY GOOD 7-8% GOOD 8-10% FAIR >10% POOR Hemoglobin (Hb) A1c testing is performed by [employer]-quant immunoassay. Any cause of shortened erythrocyte survival will reduce exposure of erythrocytes to glucose with a consequent decrease in Hb A1c (%). Testing performed or reported by ~[facility], ~a Service of [facility], ~[address] [place] [address]~ 08/07/2019 3:40 PM EDT Kirti Mcghee MD LAB BLOOD ORDERABLES Final Result [facility] from Last 3 Months or Most Recently Relevant to Health Maintenance Insurance [facility] Care Teams Equipment Analyst Relationship Specialty Start Date End Date Flash Taylor MD [address] PCP - General 09/05/19
--- OUTSIDE RECORDS SUMMARY | 2025-07-24 14:04 | XMS_ITS | Encounter Summary ---
Author Organization [employer] Address [address] [place] [address] Care Team Providers Care Bingo Manager Name Role Phone Flash Taylor MD Primary Care Provider [phone] Encounter Details Date Type Department Care Team (Late st Contact Info) Description 06/06/2025 Lab Requisition [facility] - Main Lab 299 [facility] [place] [address] Kaylene Burns MD [address] [phone] Heart failure, unspecified (CMS/HCC V24, CMS/HCC V28); [...] V28) documented in this encounter Care Teams Bingo Manager Relationship Specialty Start Date End Date Flash Taylor MD [address] [place] [phone] PCP - General 12/02/07 documented as of this encounter
--- OUTSIDE RECORDS SUMMARY | 2025-07-24 14:04 | XMS_ITS | Encounter Summary ---
Author Organization [facility], Address [address] [address] [place] [address] Phone Care Team Providers Care Dial Screw Assembler Name Role Phone Flash Taylor MD Primary Care Provider [phone] Reason for Visit * Reason Comments Med Refill Encounter Details Date Type Department Care Team (Late Contact Info) Description 03/06/2021 Refill [facility] [address] [place] [address] Jay Ordoñez MD [address] [place] [address] [place] [address] Social History Tobacco Use Types Packs/Day Years Used Date Smoking Tobacco: Never Comments Unknown Sex and Gender Information Value Date Recorded Sex Assigned at Not on file Legal Sex Female 4:36 PM EST Gender Identity Not on file Sexual Orientation Not on file documented as of this encounter Plan of Treatment Upcoming Encounters Date Type Department Care Team ([facility] Contact Info) Description 08/29/2025 4:00 PM EDT Office Visit [facility] [place], [address] [place] [phone] Jay Ordoñez MD [address] [place] [address] [place] [address] documented as of this encounter Visit Diagnoses Not on filedocumented in this encounter Care Teams Dial Screw Assembler Relationship Specialty Start Date End Date Flash Taylor MD [place] [email or web address] [address] PCP - General 09/05/19 documented as of this encounter
--- OUTSIDE RECORDS SUMMARY | 2025-07-24 14:04 | XMS_ITS | Encounter Summary ---
Author Organization [employer] Address [address] [place] [address] Care Team Providers Care Lieutenant Fire Fighter Name Role Phone Flash Taylor MD Primary Care Provider [phone] Encounter Details Date Type Department Care Team (Late st Contact Info) Description 06/03/2025 Lab Requisition [facility] - Main Lab 299 [facility] [place] [address] Kaylene Burns MD [address] [phone] Heart failure, unspecified (CMS/HCC V24, CMS/HCC V28); [...] V28) documented in this encounter Care Teams Lieutenant Fire Fighter Relationship Specialty Start Date End Date Flash Tyalor MD [address] [place] [phone] PCP - General 12/02/07 documented as of this encounter
--- OUTSIDE RECORDS SUMMARY | 2025-07-24 14:04 | XMS_ITS | Encounter Summary ---
Author Organization [facility], Address [address] [address] [place] [address] Phone Care Team Providers Care Global Human Resources Director Name Role Phone Flash Taylor MD Primary Care Provider Reason for Visit * Reason Comments Med Refill Encounter Details Date Type Department Care Team (Late Contact Info) Description 02/13/2021 Refill [facility] [address] [place] [address] Jay Ordoñez MD [address] [place] [address] [place] [address] Social History Tobacco Use Types Packs/Day Years Used Date Smoking Tobacco: Never Comments Unknown Sex and Gender Information Value Date Recorded Sex Assigned at Not on file Legal Sex Female 4:36 PM EST Gender Identity Not on file Sexual Orientation Not on file documented as of this encounter Plan of Treatment Upcoming Encounters Date Type Department Care Team (Late Contact Info) Description 08/29/2025 4:00 PM EDT Office Visit [facility] [place], [address] [place] [phone] Jay Ordoñez MD [address] [place] [address] [place] [address] documented as of this encounter Visit Diagnoses Not on filedocumented in this encounter Care Teams Global Human Resources Director Relationship Specialty Start Date End Date Flash Taylor MD [place] [employer] [address] PCP - General 09/05/19 documented as of this encounter
--- OUTSIDE RECORDS SUMMARY | 2025-07-24 14:04 | XMS_ITS | Encounter Summary ---
Author Organization [facility], Address [address] [place] [address] Phone Care Team Providers Care Collective Bargaining Specialist Name Role Phone Flash Taylor MD Primary Care Provider [phone] Encounter Details Date Type Department Care Team (Late st Contact Info) Description 04/27/2023 Documentation Only [facility] [address] [place] [address] Trevor Briones MD [address] [place] [address] [place] [phone] Social History Tobacco Use Types Packs/Day Years [...] Visit [facility] [address] [place] [phone] Jay Ordoñez MD [address] [facility] [place] [address] documented as of this encounter Visit Diagnoses Not on filedocumented in this encounter Care Teams Collective Bargaining Specialist Relationship Specialty Start Date End Date Flash Taylor MD [address] PCP - General 09/05/19 documented as of this encounter
--- OUTSIDE RECORDS SUMMARY | 2025-07-24 14:04 | XMS_ITS | Encounter Summary ---
Author Organization [employer] Address [address] [place] [address] Care Team Providers Care Supervisor Inventory Merchandising Name Role Phone Flash Taylor MD Primary Care Provider [phone] Encounter Details Date Type Department Care Team (Late st Contact Info) Description 06/22/[address] [facility] - Main Lab [address] [facility] [place] [address] Kaylene Burns MD [address] [id number] Unspecified diastolic (congestive) heart failure ([facility] V24, [facility] V28); Type 2 diabetes mellitus without complications ([facility] V24[facility] V28); Primary pulmonary hypertension ([facility] V24[facility] V28); Chronic obstructive pulmonary disease with (acute) exacerbation ([facility] V24, [facility] V28) Social History Tobacco Use Types Packs/Day [...] as of this encounter Visit Diagnoses Diagnosis Unspecified diastolic (congestive) heart failure ([facility]/HCC V24, [facility] V28) Type 2 diabetes mellitus without complications ([facility] V24, [facility] V28) Primary pulmonary hypertension ([facility] V24, [facility]/HCC V28) Primary pulmonary hypertension Chronic obstructive pulmonary disease with (acute) exacerbation ([facility] V24, [facility]/HCC V28) documented in this encounter Care Teams Supervisor Inventory Merchandising Relationship Specialty Start Date End Date Flash Taylor MD [address] [place] [address] PCP - General 12/02/07 documented as of this encounter
--- OUTSIDE RECORDS SUMMARY | 2025-07-24 14:04 | XMS_ITS | Encounter Summary ---
Author Organization [employer] Address [address] [place] [address] Care Team Providers Care Trailer Truck Driver Name Role Phone Flash Taylor MD Primary Care Provider [phone] Encounter Details Date Type Department Care Team (Late st Contact Info) Description 06/14/2025 Lab Requisition [facility] - Main Lab [address] [facility] [place] [address] Kaylene Burns MD [address] [id number] Unspecified diastolic (congestive) heart failure ([facility]/HCC V24, [facility] V28); Acute kidney failure, unspecified ([facility] V24); Chronic obstructive pulmonary disease with (acute) exacerbation ([facility] V24, [facility] V28); Primary pulmonary hypertension ([facility] V24, [facility] V28); Type 2 diabetes mellitus without complications ([facility] V24, [facility] V28); Vitamin D deficiency, unspecified Social History Tobacco Use Types Packs/Day Years [...] Procedure Name Priority Date/Time Associated Diagnosis Comments VITAMIN D 25 HYDROXY Routine 06/14/2025 7:18 AM EDT Unspecified diastolic (congestive) heart failure ([facility] V24, [facility]/HCC V28) Acute kidney failure, unspecified ([facility]/HCC V24) Chronic obstructive pulmonary disease with (acute) exacerbation ([facility]/HCC V24, [facility]/HCC V28) Primary pulmonary hypertension ([facility]/HCC V24, [facility]/HCC V28) Type 2 diabetes mellitus without complications ([facility]/HCC V24, CMS/HCC V28) Vitamin D deficiency, unspecified COMPLETE BLOOD COUNT Routine 06/14/2025 7:18 AM EDT Unspecified diastolic (congestive) heart failure ([facility]/HCC V24, CMS/HCC V28) Acute kidney failure, unspecified ([facility]/HCC V24) Chronic obstructive pulmonary disease with (acute) exacerbation ([facility]/HCC V24, [facility]/HCC V28) Primary pulmonary hypertension ([facility]/HCC V24, [facility]/HCC V28) Type 2 diabetes mellitus without complications ([facility] V24, [facility] V28) Vitamin D deficiency, unspecified MAGNESIUM Routine 06/14/2025 7:18 AM EDT Unspecified diastolic (congestive) heart failure ([facility]/HCC V24, [facility]/HCC V28) Acute kidney failure, unspecified ([facility]/HCC V24) Chronic obstructive pulmonary disease with (acute) exacerbation ([facility]/HCC V24, [facility]/HCC V28) Primary pulmonary hypertension ([facility]/HCC V24, [facility]/HCC V28) Type 2 diabetes mellitus without complications ([facility] V24, [facility]/HCC V28) Vitamin D deficiency, unspecified HEMOGLOBIN A1C Routine 06/14/2025 7:18 AM EDT Unspecified diastolic (congestive) heart failure ([facility]/HCC V24, [facility]/HCC V28) Acute kidney failure, unspecified ([facility]/HCC V24) Chronic obstructive pulmonary disease with (acute) exacerbation ([facility]/HCC V24, [facility]/HCC V28) Primary pulmonary hypertension ([facility]/HCC V24, [facility]/HCC V28) Type 2 diabetes mellitus without complications ([facility]/HCC V24, CMS/HCC V28) Vitamin D deficiency, unspecified FOLATE Routine 06/14/2025 7:18 AM EDT Unspecified diastolic (congestive) heart failure ([facility]/HCC V24, [facility] V28) Acute kidney failure, unspecified ([facility] V24) Chronic obstructive pulmonary disease with (acute) exacerbation ([facility] V24, [facility] V28[facility] Primary pulmonary hypertension ([facility] V24, [facility] V28) Type 2 diabetes mellitus without complications ([facility] V24, [facility] V28) Vitamin D deficiency, unspecified VITAMIN B12 Routine 06/14/2025 7:18 AM EDT Unspecified diastolic (congestive) heart failure ([facility] V24, [facility] V28) Acute kidney failure, unspecified ([facility] V24) Chronic obstructive pulmonary disease with (acute) exacerbation ([facility] V24, [facility] V28) Primary pulmonary hypertension ([facility] V24, [facility] V28) Type 2 diabetes mellitus without complications ([facility] V24, [facility] V28) Vitamin D deficiency, unspecified COMPREHENSIVE METABOLIC PANEL Routine 06/14/2025 7:18 AM EDT Unspecified diastolic (congestive) heart failure ([facility] V24, [facility] V28) Acute kidney failure, unspecified ([facility] V24) Chronic obstructive pulmonary disease with (acute) exacerbation ([facility] V24, [facility] V28) Primary pulmonary hypertension ([facility] V24, [facility] V28[facility] Type 2 diabetes mellitus without complications ([facility] V24, [facility] V28) Vitamin D deficiency, unspecified documented in this encounter Results * (ABNORMAL) Hemoglobin A1c (06/14/2025 7:18 AM EDT) Hemoglobin A1C 8.4(H) <6.5 % LAB CHEMISTRY METHOD 06/14/2025 11:00 AM EDT [facility] Mean Bld Glu Estim. 194 mg/dL LAB CHEMISTRY METHOD 06/14/2025 11:00 AM EDT [facility] Blood Venous blood specimen / Unknown Venipuncture / Unknown 06/14/2025 7:18 AM EDT 06/14/2025 8:30 AM EDT Kaylene Burns MD LAB BLOOD ORDERABLES Fin al Result Performing Organization Address City/[facility] Co de Phone Number [facility] [address] [place] [address], [place] [phone] * Vitamin D 25 hydroxy (06/14/2025 7:18 AM EDT) [facility] Vit D, 25-Hydroxy 57.9 30.0 - 80.0 ng/mL LAB CHEMISTRY METHOD 06/14/2025 12:02 PM EDT [facility] Blood Venous blood specimen / Unknown Venipuncture / Unknown 06/14/2025 7:18 AM EDT 06/14/2025 8:30 AM EDT Kaylene Burns MD LAB BLOOD ORDERABLES Fin al Result Performing Organization Address [facility] de Phone Number [facility] [address] [place] [address], [place] [phone] * (ABNORMAL) Vitamin B12 (06/14/2025 7:18 AM EDT) [facility] Vitamin B-12 952(H) 250 - 900 pcg/mL LAB CHEMISTRY METHOD 06/14/2025 9:48 AM EDT [facility] Blood Venous blood specimen / Unknown Venipuncture / Unknown 06/14/2025 7:18 AM EDT 06/14/2025 8:30 AM EDT Kaylene Burns MD LAB BLOOD ORDERABLES Fin al Result Performing Organization Address City/[facility]/ZIP Co de Phone Number [facility] [address] [place] [address], [place] [phone] * (ABNORMAL) Folate (06/14/2025 7:18 AM EDT) [facility] Folate >20.0(H) 2.8 - 17.0 ng/ml LAB CHEMISTRY METHOD 06/14/2025 9:38 AM EDT [facility] Blood Venous blood specimen / Unknown Venipuncture / Unknown 06/14/2025 7:18 AM EDT 06/14/2025 8:30 AM EDT Kaylene Burns MD LAB BLOOD ORDERABLES Fin al Result Performing Organization Address [facility]/ZIP Co de Phone Number [facility] [address] [place] [address], [place] [phone] * (ABNORMAL) Magnesium (06/14/2025 7:18 AM EDT) [facility] Magnesium 1.8(L) 1.9 - 2.6 mg/dL LAB CHEMISTRY METHOD 06/14/2025 9:25 AM EDT [facility] Blood Venous blood specimen / Unknown Venipuncture / Unknown 06/14/2025 7:18 AM EDT 06/14/2025 8:30 AM EDT Kaylene Burns MD LAB BLOOD ORDERABLES Fin al Result Performing Organization Address [facility] de Phone Number [facility] [address] [place] [address], [place] [phone] * (ABNORMAL) Comprehensive metabolic panel (06/14/2025 7:18 AM EDT) [facility] Sodium 143 133 - 145 mmol/L LAB CHEMISTRY METHOD 06/14/2025 9:46 AM EDT [facility] Potassium 4.5 3.5 - 5.5 mmol/L LAB CHEMISTRY METHOD 06/14/2025 9:46 AM EDT [facility] Chloride 107 96 - 110 mmol/L LAB CHEMISTRY METHOD 06/14/2025 9:46 AM EDT [facility] Comment:Results verified by repeat testing CO2 32 21 - 32 mmol/L LAB CHEMISTRY METHOD 06/14/2025 9:46 AM [facility] Anion Gap 4 3 - 11 LAB CHEMISTRY METHOD 06/14/2025 9:46 AM [facility] Glucose 141(H) 70 - 100 mg/dL LAB CHEMISTRY METHOD 06/14/2025 9:46 AM [facility] BUN 73(H) 5 - 25 mg/dL LAB CHEMISTRY METHOD 06/14/2025 9:46 AM [facility] Creatinine 1.73(H) 0.50 - 1.10 mg/dL LAB CHEMISTRY METHOD 06/14/2025 9:46 AM [facility] eGFR 30(L) >=60 mL/min/1. 73m2 LAB CHEMISTRY METHOD 06/14/2025 9:46 AM [facility] Comment:Calculation based on the Chronic Kidney Disease Epidemiology Collaboration (CKD-EPI) equation refit without adjustment for race. BUN/Creatinine Ratio 42.2 LAB CHEMISTRY METHOD 06/14/2025 9:46 AM [facility] Calcium 7.6(L) 8.5 - 10.5 mg/dL LAB CHEMISTRY METHOD 06/14/2025 9:46 AM [facility] AST (SGOT) 19 10 - 42 unit/L LAB CHEMISTRY METHOD 06/14/2025 9:46 AM [facility] ALT (SGPT) 13 10 - 60 unit/L LAB CHEMISTRY METHOD 06/14/2025 9:46 AM [facility] Alkaline Phosphatase 58 42 - 121 unit/L LAB CHEMISTRY METHOD 06/14/2025 9:46 AM [facility] Total Protein 5.3(L) 6.0 - 8.0 g/dL LAB CHEMISTRY METHOD 06/14/2025 9:46 AM [facility] Albumin 2.6(L) 3.2 - 5.0 g/dL LAB CHEMISTRY METHOD 06/14/2025 9[facility] Total Bilirubin 0.6 0.0 - 1.4 mg/dL LAB CHEMISTRY METHOD 06/14/2025 9:46 AM EDT [facility] Blood Venous blood specimen / Unknown Venipuncture / Unknown 06/14/2025 7:18 AM EDT 06/14/2025 8:30 AM EDT us Kaylene Burns MD LAB BLOOD ORDERABLES Fin al Result [facility] [address] [place] [address], * (ABNORMAL) Complete blood count (06/14/2025 7:18 AM EDT) WBC 5.7 4.8 - 10.8 K/mcL LAB HEMETOLOGY METHOD 06/14/2025 9:34 AM [facility] RBC 3.10(L) 3.80 - 4.80 M/mcL LAB HEMETOLOGY METHOD 06/14/2025 9:34 AM [facility] Hemoglobin 9.1(L) 11.5 - 16.0 g/dL LAB HEMETOLOGY METHOD 06/14/2025 9:34 AM [facility] Hematocrit 30.1(L) 35.0 - 47.0 % LAB HEMETOLOGY METHOD 06/14/2025 9:34 AM [facility] MCV 97.7 79.0 - 98.0 FL LAB HEMETOLOGY METHOD 06/14/2025 9:34 AM [facility] MCH 29.5 27.0 - 32.0 pcg LAB HEMETOLOGY METHOD 06/14/2025 9:34 AM [facility] MCHC 30.2(L) 32.0 - 37.0 g/dL LAB HEMETOLOGY METHOD 06/14/2025 9:34 AM [facility] RDW 15.4(H) 11.0 - 15.0 % LAB HEMETOLOGY METHOD 06/14/2025 9:34 AM EDT [facility] Platelets 150 130 - 400 K/mcL LAB HEMETOLOGY METHOD 06/14/2025 9:34 AM EDT [facility] MPV 13.3(H) 7.0 - 11.0 FL LAB HEMETOLOGY METHOD 06/14/2025 9:34 AM EDT [facility] NRBC 0.0 <1.0 % LAB HEMETOLOGY METHOD 06/14/2025 9:34 AM EDT [facility] NRBC Absolute 0.00 <0.10 K/mcL LAB HEMETOLOGY METHOD 06/14/2025 9:34 AM EDT [facility] Blood Venous blood specimen / Unknown Venipuncture / Unknown 06/14/2025 7:18 AM EDT 06/14/2025 8:30 AM EDT us Kaylene Burns MD LAB BLOOD ORDERABLES Fin al Result [facility] [address] [place] [address], documented in this encounter Visit Diagnoses Diagnosis Unspecified diastolic (congestive) heart failure ([facility]/HCC V24, [facility] V28) Acute kidney failure, unspecified ([facility] V24) Acute kidney failure, unspecified Chronic obstructive pulmonary disease with (acute) exacerbation ([facility]/HCC V24, [facility] V28) Primary pulmonary hypertension (CMS/HCC V24, [facility] V28) Primary pulmonary hypertension Type 2 diabetes mellitus without complications ([facility] V24, [facility] V28) Vitamin D deficiency, unspecified documented in this encounter Care Teams Trailer Truck Driver Relationship Specialty Start Date End Date Flash Taylor MD [address] [place] [phone] PCP - General 12/02/07 documented as of this encounter
--- OUTSIDE RECORDS SUMMARY | 2025-07-24 14:04 | XMS_ITS | Clinical Summary ---
Author Organization [facility] Address [address] [facility] [address] [place] [phone] Phone Care Team Providers Care Block Layer Name Role Phone Flash Taylor MD Primary Care Provider [phone] Jay Delaney MD Unavailable [phone] Jay Ordoñez MD Unavailable [phone] Allergies Active Allergy Reactions Criticality Noted Date Comments Amoxicillin-Pot Clavulanate Rash Low 05/17/2023 Maculopapular rash after augmentin Ciprofloxacin Hives,Other (See Comments) 12/04/2019 Morphine Sulfate 03/24/2023 Vancomycin 12/04/2019 Medications torsemide (DEMADEX) 20 MG tablet Take 2 tablets by mouth once. 02/15/20 23 Active pravastatin (PRAVACHOL) 40 MG tablet Take 40 mg by mouth daily. 03/17/20 23 Active omeprazole (PRILOSEC) 20 MG capsule Take 1 capsule by mouth daily. Active diclofenac sodium (VOLTAREN) 1 % Gel As needed 03/21/20 23 Active carvedilol (COREG) 12.5 MG tablet Take 12.5 mg by mouth 2 (two) times a day with meals. 03/09/20 23 Active allopurinol (ZYLOPRIM) 100 MG tablet Take 2 tablets by mouth nightly at bedtime. 02/29/20 23 Active budesonide (PULMICORT) 0.25 mg/2 mL nebulizer solution as needed. 12/22/19 23 Active levalbuterol (XOPENEX) 1.25 mg/3 mL nebulizer solution once as needed. 01/15/20 23 Active albuterol 90 mcg/actuation inhaler as needed. 03/09/20 23 Active lancets 28 gauge MiscIndications: Type 2 diabetes mellitus with chronic kidney disease, with long-term current use of insulin, unspecified CKD stage 1 each by Miscellaneous route 3 (three) times a day before meals. Dx E11.22, on insulin 300 each 3 03/24/20 23 Active gabapentin (NEURONTIN) 100 MG capsule Take 200 mg by mouth 3 (three) times a day. 04/24/20 23 Active acetaminophen (TYLENOL) 500 MG tablet Take 1,000 mg by mouth as needed. 04/24/20 23 Active BD INSULIN SYRINGE ULTRA-FINE 0.5 mL 30 gauge x 1/2 Syrg USE DIRECTED UPTO 3 TIMES DAILY 04/22/20 23 Active pregabalin (LYRICA) 75 MG capsule Take 75 mg by mouth nightly at bedtime. 05/21/20 23 Active BD ULTRA-FINE ORIG PEN NEEDLE 29 gauge x 1/2 Ndle USE DIRECTED FOR TYPE 2 DIABETES MELLITUS 04/17/20 23 Active nystatin (NYSTOP) powder APPLY TOPICALLY THREE TIMES DAILY FOR 10 DAYS 15 09/02/20 23 Active SACUBITRIL-VALSA RTAN 24-26 mg per tablet Take 1 tablet by mouth 2 (two) times a day. Active triamcinolone acetonide 0.1 % ointment APPLY VERY SPARINGLY AM AND PM TO AREAS OF PSORIASIS PLAQUES. 12/28/19 24 Active FREESTYLE LITE Strp stripsIndication s:Type 2 diabetes mellitus with chronic kidney disease, with long-term current use of insulin, unspecified CKD stage USE TO TEST BLOOD SUGAR 3 (THREE) TIMES A DAY BEFORE MEALS 300 strip 3 03/28/20 24 Active carvedilol (COREG) 6.25 MG tablet Take 3.125 mg by mouth 2 (two) times a day. Active LANTUS SOLOSTAR U-100 INSULIN 100 unit/mL (3 mL) InPn injection penIndications:T ype 2 diabetes mellitus with chronic kidney disease, with long-term current use of insulin, unspecified CKD stage INJECT 18-22 UNITS UNDER THE SKIN EVERY MORNING AND 18-28 UNITS NIGHTLY AT BEDTIME. PLUS 2 UNITS TO PRIME THE PEN WITH EACH USE. 45 mL 2 05/15/20 Active Additional Information Patient taking differently: 12 Units Subcutaneous 2 times daily, Reported on 03/06/2025 carvedilol (COREG) 3.125 MG tablet Take 1 tablet by mouth 2 (two) times a day with meals. 10/12/20 Active semaglutide (OZEMPIC) 0.25 mg or 0.5 mg (2 mg/3 mL) subcutaneous injection penIndications:T ype 2 diabetes mellitus with chronic kidney disease, with long-term current use of insulin, unspecified CKD stage Inject 0.5 mg under the skin every 7 days. 3 mL 2 04/05/20 Active JARDIANCE 10 mg tabletIndication s:Type 2 diabetes mellitus with chronic kidney disease, with long-term current use of insulin, unspecified CKD stage TAKE 1 TABLET BY MOUTH EVERY DAY 90 tablet 1 06/18/20 Active Active Problems Problem Noted Date Diagnosed Date Type 2 diabetes mellitus wit h chronic kidney disease, with long-term current use of insulin 12/04/2019 03/24/2023 Assessment & Plan (03/09/2025 10:14 AM EDT): Worsening control by last A1c of 9.7% in 12/2024. Test fasting glucose only which are just over target with average glucose 151, range 83-175. No frequent or severe hypoglycemia. Remains on Trulicity 3 mg weekly, missing dose maybe once a month. Takes 12 units of Lantus twice a day without missing doses. Also on Jardiance 10 mg daily. Patient lost her in 09/2025, had several hospitalizations for low oxygen level, wrist fracture and had steroid injection to the right knee more recently. Gained 10 pounds since July. Last creatinine 2.0 in 12/2024. Up-to-date with eye exam, requested to send report here. - Make sure he takes the Trulicity regularly every week. Continue Jardiance 10 mg in a.m. Continue Lantus 12 units twice a day for now. -Try increasing SMBG by checking some 2-hour postprandial blood sugars to help with treatment adjustment. -Consider using a home CGM. Patient is hesitant. -May do professional CGM monitoring at next visit if no improvement in A1c Assessment & Plan (07/17/2024 9:46 AM EDT): Control has improved based upon the patient's SMBG readings. No frequent or severe hypoglycemia. She is tolerating the higher dose of trulicity well and so far has not had issues getting it. Continue to work on eating healthy and being active. To call or message with any issues managing her glucose levels. Up to date with [facility] ordered today Assessment & Plan (04/17/2024 9:42 AM EDT): Control is continuing to improve based upon the patient's SMBG readings. No frequent or severe hypoglycemia. Will maintain her regimen. Continue to work on eating healthy and being active. To call or message with any issues managing her glucose levels. Up to date with [facility] ordered today Assessment & Plan (01/17/2024 11:03 AM EDT): Control is improving based upon the patient's SMBG readings. No frequent or severe hypoglycemia. She will have an occasional low in the morning. She will correct with glucose tablets and then is fine. Will lower her lantus to 10-12 units twice a day, as her examination supervisor want her on jardiance for the cardiac protection. Will start the jardiance as 10 mg once a day. Discussed potential side effects to watch out for. Continue to work on eating healthy and being active. To call or message with any issues managing her glucose levels. Up to date with [employer] ordered today Assessment & Plan (10/19/2023 12:23 PM EST): Control is reasonable based upon the patient's SMBG readings. No frequent or severe hypoglycemia. She had a couple lows, she is not sure what caused the lows. She corrected and then was fine. Will maintain her regimen as the lows don't happen often. The occasional spikes are due to dietary intake and with the holidays she thinks this is what caused the recent ones. She will continue to be careful with her diet and trying to be as active as she can. To call or message with any issues managing her glucose levels. Up to date with [facility] ordered today Assessment & Plan (07/12/2023 2:22 PM EDT): Control is suboptimal based upon the patient's SMBG readings. No frequent or severe hypoglycemia. She had one recent episode of hypoglycemia. She is not sure what caused the low. She corrected and then was fine. She has been high in the evening- not sure of the time of the finger stick in relation to eating. This might be causing some of the highs. We will lower her evening dose of lantus due to the larger drops in glucose levels over night. To call with her glucose levels in 2 weeks for review to determine if any adjustments are needed. Continue to work on eating healthy and being active. To call or message with any issues managing her glucose levels. Up to date with ophtho. Sees podiatry. Labs done with PCP Assessment & Plan (05/28/2023 9:49 PM EDT): Suboptimal control by SMBG with frequent hypoglycemia by fasting and high blood sugars up to the 300s late p.m. patient is without the Trulicity for about 3 weeks. She has been in a lot of pain secondary to shingles and her skin lesions got infected needing antibiotic treatment. Currently she has been taking 12 to 14 units of Lantus before breakfast and 18 units at bedtime. Plan to restart the Trulicity 1.5 mg weekly today. If the 2 to 3 hours after dinner blood sugars remain over 180 repeatedly we may need to add Humalog 4 to 8 units before dinner. In order to prevent the overnight/fasting hypoglycemia patient should decrease the bedtime Lantus by 2 to 4 units. She will continue the 14 units in a.m. Reviewed symptoms, prevention and treatment of hypoglycemia. Patient to call if blood sugars below 70 or over 250 repeatedly. Eye exam is scheduled. Patient is followed by biomedical engineering supervisor Dr. Ordoñez for stage 3b CKD with proteinuria, last note from 05/03/2023 reviewed. 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 We discussed how this works. Patient has appointment with [place] [facility]. Assessment & Plan (03/24/2023 4:39 PM EDT): Control is reasonable based upon the patient's SMBG readings. No frequent or severe hypoglycemia. She will have an occasional low in the morning, she will correct and then is fine. Will lower her evening dose of lantus to help prevent the lows. Will send a prescription for her trulicity to the pharmacy. If she is unable to get it tonight, she will wait until Thursday 03/29 to take it.Continue to work on eating healthy and trying to be active. To call with any issues managing her glucose levels. Up to date with ophtho. Labs ordered today Hypercholesterolemia 12/04/2019 Essential hypertension 12/04/2019 Edema of lower extremity 12/04/2019 Chronic kidney disease due to hypertension 12/04 Encounters Date Type Department Care Team Description 06/16/2025 Refill [facility] [place] [address] [facility] [place] [address] Caro Caraballo PA-C Medication Refill 05/28/2025 Telephone [facility] Internal Medicine [address] [facility] [place] [address] Flash Taylor MD Cancel appt 05/28 from Last 3 Months Immunizations Immunization Administration Dates Next Due INFLUENZA, SPLIT VIRUS, TRIV ALENT W/ PRESERVATIVE IM 10/03/2010,08/19/2006,09/02/2005 Influenza High-Dose Quadriva lent Preservative Free IM 07/25/2021,07/25/2020 Influenza High-Dose Trivalen t Preservative Free IM 07/25/2020,08/16/2019,09/10/2016 Influenza Quadrivalent Adjuv anted Preservative Free IM 10/09/2022 Influenza Trivalent Adjuvant ed Preservative free IM 07/27/2018 Pneumococcal polysaccharide PPSV23 01/31/1999 Td, unspecified formulation 02/22/1998 Social History Tobacco Use Types Packs/Day Years Used Date Smoking Tobacco: Never Smokeless Tobacco: Never Tobacco Cessation:Counseling Given: Not Answered Alcohol Use Standard Drinks/Week Comments Never 0 (1 standard drink = 0.6 oz pur e alcohol) Education Answer Date Recorded Are you interested in more education? Not on darcy e 03/19/2023 Are you concerned about learning? Not on file 03/19/2023 No 03/19/2023 No 03/19/2023 Digital Access Answer Date Recorded No 03/23/2023 No 03/23/2023 Reliable internet access at home? Not on file 03/23/2023 Device with a working camera? Not on file Comments Unknown Sex and Gender Information Value Date Recorded Sex Assigned at Female 03/06/2025 7:10 AM EDT Legal Sex Female 12:57 AM EST Gender Identity Female 03/06/2025 7:10 AM EDT Sexual Orientation Straight 03/06/2025 7: 10 AM EDT Last Filed Vital Signs Vital Sign Reading Time Taken Comments Blood Pressure 134/72 03/06/2025 8:42 AM EDT Pulse 83 03/06/2025 8:42 AM EDT Temperature 36.3 C (97.3 F) 07/17/2024 8:40 AM EDT Respiratory Rate 13 07/17/2024 8:40 AM EDT Oxygen Saturation 95% 03/06/2025 8:42 AM EDT Inhaled Oxygen Concentration - - Weight 107.8 kg (237 lb 9.6 oz) 03/06/2025 8:42 AM EDT Height 150.4 cm (4' 11.21 ) 03/06/2025 8:42 AM E DT Body Mass Index 47.64 03/06/2025 8:42 AM EDT Plan of Treatment Upcoming Encounters Date Type Department Care Team (Late st Contact Info) Description 11/07/2025 11:00 AM EST Office Visit [facility] [address] [place] [phone] Sailaja Montenegro MD [address] [place] [phone] [email or web address] Health Maintenance Due Date Last Done Comments DEPRESSION SCREENING 1957 HEPATITIS C SCREENING 02/13/1964 ZOSTER VACCINES (1 of 2) 02/13/1996 PNEUMOCOCCAL VACCINES (50+ years) (2 of 2 - PCV) 02/01/2000 01/31/1999 Adult Td,Tdap Booster 02/23/2008 02/22/1998 OSTEOPOROSIS SCREENING INITIAL (ONE-TIME) 2011 RSV VACCINE (1 - 1-dose 75+ series) 2021 DIABETIC EYE EXAM 03/24/2023 HEMOGLOBIN A1C 07/18/2024 04/17/2024, 04/01, 01/17/2024, Additional history exists INFLUENZA VACCINE (#1) 2025 2, 07/25/2021, 07/25/2020, Additional history exists COVID-19 VACCINE (2024- season) 2025 09/02/2021, 01/18/2021, 12/28/2020 BLOOD PRESSURE 09/06/2025 03/06/2025 CREATININE LEVEL 04/16/2026 04/16/2025, , 01/17/2024, Additional history exists SMOKING STATUS SCREENING (Once After 26 Yrs) Completed 03/06/2025 HEPATITIS A VACCINES Aged Out No long er eligible based on patient's age to complete this topic HIB VACCINES Aged Out No longer eligi ble based on patient's age to complete this topic MENINGOCOCCAL VACCINES (ACWY) Aged Out No longer eligible based on patient's age to complete this topic MENINGOCOCCAL VACCINES (B) Aged Out N o longer eligible based on patient's age to complete this topic Medical Devices Not on file Procedures Procedure Name Priority Date/Time Associated Diagnosis Comments COMPREHENSIVE METABOLIC PANEL Routine 04/16/2025 Type 2 diabetes mellitus with chronic kidney disease, with long-term current use of insulin, unspecified CKD stage HEMOGLOBIN A1C Routine 04/17/2024 10:00 AM EDT Type 2 diabetes mellitus with chronic kidney disease, with long-term current use of insulin, unspecified CKD stage from Last 3 Months or Most Recently Relevant to Health Maintenance Results * Comprehensive metabolic panel (04/16/2025) Sodium - External [facility] Potassium - External 4.5 [facility] Chloride - External [facility] CO2 - External [facility] BUN - External [facility] Creatinine - External 2.19 [facility] Glucose - External [facility] Albumin - External [facility] Protein - External [facility] Calcium - External [facility] Alkaline Phosphatase - External [facility] Bilirubin, total - External [facility] AST - External [facility] ALT - External 12 [facility] Globulin - External [facility] eGFR - External [facility] Anion Gap - External [facility] Blood 04/16/2025 us Sailaja Montenegro MD LAB BLOOD ORDERABLES Edited Re sult - Final [address] [id number] * (ABNORMAL) Hemoglobin A1c (04/17/2024 10:00 AM EDT) HEMOGLOBIN A1C 8.6(H) 4.3 - 5.8 % [facility] Blood 04/17/2024 10:0 0 AM EDT 04/17/2024 10:01 AM EDT us Caro Caraballo PA-C LAB BLOOD ORDERABL ES Final Result [address] [id number] from Last 3 Months or Most Recently Relevant to Health Maintenance Insurance MEDICARE HMO REPLACEMENT [place] MEDICARE HMO REPLACEMENT Care Teams Block Layer Relationship Specialty Start Date End Date Flash Taylor MD [address] [place] [id number] PCP - General Internal Medicine 07/12/23 Jay Delaney MD [address] [place] [address] Dr Clifford [address] [place] [phone] Cardiology 10/19/23 Jay Ordoñez MD [address] [place] [phone] Nephrology 04/17/24 Additional Source Comments The information contained in this document represents components of the legal health record. It is not the complete legal health record.[facility]
--- OUTSIDE RECORDS SUMMARY | 2025-07-24 14:04 | XMS_ITS | Encounter Summary ---
Author Organization [facility] Address [address] [place] [address] Care Team Providers Care Spiral Runner Name Role Phone Flash Taylor MD Primary Care Provider [phone] Encounter Details Date Type Department Care Team (Late st Contact Info) Description 05/28/2025 Lab Requisition [facility] - Main Lab 299 [facility] [place] [address] Kaylene Burns MD [address] [id number] Heart failure, unspecified (CMS/HCC V24, CMS/HCC V28); Chronic obstructive pulmonary disease, unspecified (CMS/HCC V24, CMS/HCC V28); Weakness Social History Tobacco Use Types Packs/Day Years [...] Procedure Name Priority Date/Time Associated Diagnosis Comments THYROID STIMULATING HORMONE WITH REFLEX TO FREE [...] disease, unspecified (CMS/HCC V24, CMS/HCC V28) Weakness TRIIODOTHYRONINE FREE Routine 05/28/2025 7:12 AM EDT [...] disease, unspecified (CMS/HCC V24, CMS/HCC V28) Weakness documented in this encounter Results * Triiodothyronine free (05/28/2025 7:12 AM EDT) [facility] Signature T3, Free 243 230 - 420 pcg/dL LAB CHEMISTRY METHOD 05/28/2025 7:[address] [facility] Blood Venous blood specimen / Unknown Venipuncture / Unknown 05/28/2025 7:12 AM EDT 05/28/2025 10:18 AM EDT Kaylene Burns MD LAB BLOOD ORDERABLES Fin al Result Performing Organization Address [facility] [[email or web address]] Co de Phone Number [facility] [address] [place] [address], [place] [phone] * Free thyroxine with reflex to free triiodothyronine (05/28/2025 7:12 AM EDT) [facility] Free T4 1.10 0.70 - 1.80 ng/dL LAB CHEMISTRY METHOD 05/28/2025 6:03 PM EDT [facility] Blood Venous blood specimen / Unknown Venipuncture / Unknown 05/28/2025 7:12 AM EDT 05/28/2025 10:18 AM EDT Kaylene Burns MD LAB BLOOD ORDERABLES Fin al Result Performing Organization Address [facility] [[email or web address]] Co de Phone Number [facility] [address] [place] [address], [place] [phone] * (ABNORMAL) Folate (05/28/2025 7:12 AM EDT) [facility] Folate >20.0(H) 2.8 - 17.0 ng/ml LAB CHEMISTRY METHOD 05/28/2025 11:35 AM EDT [facility] Blood Venous blood specimen / Unknown Venipuncture / Unknown 05/28/2025 7:12 AM EDT 05/28/2025 10:18 AM EDT Kaylene Burns MD LAB BLOOD ORDERABLES Fin al Result Performing Organization Address [facility] [[email or web address]] Co de Phone Number [facility] [address] [place] [address], [place] [phone] * (ABNORMAL) Vitamin B12 (05/28/2025 7:12 AM EDT) [facility] Vitamin B-12 1,196(H) 250 - 900 pcg/mL LAB CHEMISTRY METHOD 05/28/2025 11:43 AM EDT [facility] Blood Venous blood specimen / Unknown Venipuncture / Unknown 05/28/2025 7:12 AM EDT 05/28/2025 10:18 AM EDT Kaylene Burns MD LAB BLOOD ORDERABLES Fin al Result Performing Organization Address [facility]/ZIP Co de Phone Number [facility] [address] [place] [address], [place] [phone] * (ABNORMAL) Thyroid stimulating hormone with reflex to free t4 and free t3 (05/28/2025 7:12 AM EDT) [facility] TSH 5.26(H) 0.40 - 4.00 mcIU/mL LAB CHEMISTRY METHOD 05/28/2025 5:28 PM EDT [facility] Blood Venous blood specimen / Unknown Venipuncture / Unknown 05/28/2025 7:12 AM EDT 05/28/2025 10:18 AM EDT Kaylene Burns MD LAB BLOOD ORDERABLES Fin al Result Performing Organization Address [facility]/ZIP Co de Phone Number [facility] [address] [place] [address], [place] [phone] * (ABNORMAL) Comprehensive metabolic panel (05/28/2025 7:12 AM EDT) [facility] Sodium 140 133 - 145 mmol/L LAB CHEMISTRY METHOD 05/28/2025 11:42 AM EDT [facility] Potassium 4.4 3.5 - 5.5 mmol/L LAB CHEMISTRY METHOD 05/28/2025 11:42 AM EDT [facility] Chloride 100 96 - 110 mmol/L LAB CHEMISTRY METHOD 05/28/2025 11:42 AM [facility] CO2 34(H) 21 - 32 mmol/L LAB CHEMISTRY METHOD 05/28/2025 11:42 AM [facility] Anion Gap 6 3 - 11 LAB CHEMISTRY METHOD 05/28/2025 11:42 AM [facility] Glucose 129(H) 70 - 100 mg/dL LAB CHEMISTRY METHOD 05/28/2025 11:42 AM [facility] BUN 107(H) 5 - 25 mg/dL LAB CHEMISTRY METHOD 05/28/2025 11:42 AM [facility] Comment:Results verified by repeat testing Creatinine 2.11(H) 0.50 - 1.10 mg/dL LAB CHEMISTRY METHOD 05/28/2025 11:42 AM [facility] eGFR 23(L) >=60 mL/min/1. 73m2 LAB CHEMISTRY METHOD 05/28/2025 11:42 AM [facility] Comment:Calculation based on the Chronic Kidney Disease Epidemiology Collaboration (CKD-EPI) equation refit without adjustment for race. BUN/Creatinine Ratio 50.7 LAB CHEMISTRY METHOD 05/28/2025 11:42 AM [facility] Calcium 7.0(L) 8.5 - 10.5 mg/dL LAB CHEMISTRY METHOD 05/28/2025 11:42 AM [facility] AST (SGOT) 26 10 - 42 unit/L LAB CHEMISTRY METHOD 05/28/2025 11:42 AM [facility] ALT (SGPT) 18 10 - 60 unit/L LAB CHEMISTRY METHOD 05/28/2025 11:42 AM [facility] Alkaline Phosphatase 67 42 - 121 unit/L LAB CHEMISTRY METHOD 05/28/2025 11:42 AM [facility] Total Protein 5.8(L) 6.0 - 8.0 g/dL LAB CHEMISTRY METHOD 05/28/2025 11:42 AM [facility] Albumin 2.4(L) 3.2 - 5.0 g/dL LAB CHEMISTRY METHOD 05/28/2025 11:42 AM EDT [facility] Total Bilirubin 0.5 0.0 - 1.4 mg/dL LAB CHEMISTRY METHOD 05/28/2025 11:42 AM [facility] Blood Venous blood specimen / Unknown Venipuncture / Unknown 05/28/2025 7:12 AM EDT 05/28/2025 10:18 AM EDT us Kaylene Burns MD LAB BLOOD ORDERABLES Fin al Result [facility] [address] [place] [address], * (ABNORMAL) Complete blood count (05/28/2025 7:12 AM EDT) WBC 9.4 4.8 - 10.8 K/mcL LAB HEMETOLOGY METHOD 05/28/2025 10:44 AM [facility] RBC 3.20(L) 3.80 - 4.80 M/mcL LAB HEMETOLOGY METHOD 05/28/2025 10:44 AM [facility] Hemoglobin 9.4(L) 11.5 - 16.0 g/dL LAB HEMETOLOGY METHOD 05/28/2025 10:44 AM [facility] Hematocrit 29.9(L) 35.0 - 47.0 % LAB HEMETOLOGY METHOD 05/28/2025 10:44 AM [facility] MCV 94.6 79.0 - 98.0 FL LAB HEMETOLOGY METHOD 05/28/2025 10:44 AM [facility] MCH 29.7 27.0 - 32.0 pcg LAB HEMETOLOGY METHOD 05/28/2025 10:44 AM [facility] MCHC 31.4(L) 32.0 - 37.0 g/dL LAB HEMETOLOGY METHOD 05/28/2025 10:44 AM EDT [facility] RDW 14.3 11.0 - 15.0 % LAB HEMETOLOGY METHOD 05/28/2025 10:44 AM EDT [facility] Platelets 288 130 - 400 K/mcL LAB HEMETOLOGY METHOD 05/28/2025 10:44 AM EDT [facility] MPV 11.4(H) 7.0 - 11.0 FL LAB HEMETOLOGY METHOD 05/28/2025 10:44 AM EDT [facility] NRBC 0.0 <1.0 % [facility] 05/28/2025 10:44 AM EDT [facility] NRBC Absolute 0.00 <0.10 K/mcL [facility] 05/28/2025 10:44 AM EDT [facility] Blood Venous blood specimen / Unknown Venipuncture / Unknown 05/28/2025 7:12 AM EDT 05/28/2025 10:18 AM EDT Kaylene Burns MD LAB BLOOD ORDERABLES Fin al Result [facility] [address] [place] [address], documented in this encounter Visit Diagnoses Diagnosis Heart failure, unspecified (CMS/HCC V24, CMS/HCC V28) Heart failure, unspecified Chronic obstructive pulmonary disease, unspecified (CMS/HCC V24, CMS/HCC V28) Weakness Other malaise and fatigue documented in this encounter Care Teams Spiral Runner Relationship Specialty Start Date End Date Flash Taylor MD [address] [place] [address] PCP - General 12/02/07 documented as of this encounter
--- OUTSIDE RECORDS SUMMARY | 2025-07-24 14:04 | XMS_ITS | Encounter Summary ---
Author Organization [facility], Address [address] [place] [address] Phone Care Team Providers Care City Recorder Name Role Phone Flash Taylor MD Primary Care Provider [phone] Encounter Details Date Type Department Care Team (Late st Contact Info) Description 12/29/2024 Documentation Only [facility] [address] [place] [address] Jay Ordoñez MD [address] [place] [address] [place] [id number] Social History Tobacco Use Types Packs/Day Years [...] Visit [facility] [address] [place] [phone] Jay Ordoñez MD [address] [facility] [place] [address] documented as of this encounter Visit Diagnoses Not on filedocumented in this encounter Care Teams City Recorder Relationship Specialty Start Date End Date Flash Taylor MD [address] PCP - General 09/05/19 documented as of this encounter
[2025-07-24 20:51] VITALS: PULSE 89; O2SAT 94
== END 2025-07-24 11:50 | disposition home or self-care (01) ==
LOC: HO.HPS 11:14
PROVIDERS: PCP Internal Medicine; Visit Provider Hospitalist
DX: I50.23 Acute on chronic systolic (congestive) heart failure (principal); J43.2 Centrilobular emphysema; R60.0 Localized edema; J96.11 Chronic respiratory failure with hypoxia; J96.12 Chronic respiratory failure with hypercapnia; I27.20 Pulmonary hypertension, unspecified; B02.29 Other postherpetic nervous system involvement; D64.9 Anemia, unspecified
CPT/HCPCS: 94618; 99215; G2211

== ENCOUNTER → 2025-07-24 11:13 | Outpatient (BNVA) | payer MEDICARE, SELFPAY | PROVIDERS: PCP Internal Medicine; Visit Provider Hospitalist | DX: J43.2 Centrilobular emphysema (principal); I50.23 Acute on chronic systolic (congestive) heart failure; I27.20 Pulmonary hypertension, unspecified; J96.11 Chronic respiratory failure with hypoxia; J96.12 Chronic respiratory failure with hypercapnia; B02.29 Other postherpetic nervous system involvement; D64.9 Anemia, unspecified; R60.0 Localized edema | CPT/HCPCS: 94618; 99212 ==

== ENCOUNTER → 2025-07-27 19:30 | Outpatient (REF) | payer MEDICARE, MEDICAID, SELFPAY ==
--- OUTSIDE RECORDS SUMMARY | 2025-07-27 21:01 | XMS_ITS | Patient Health Record ---
Author Organization [facility] Address [address] [facility] [place] [address] Care Team Providers Care Consumer Experience Consultant Name Role Phone Brandon THOMPSON, Flash Primary Care Provider Unavailab Yadira Nuñez Unavailable [phone] Herman Girard Unavailable [phone] Allergies Allergen (clinical drug ingredient) Drug/Non Drug [...] Problem Acquired hammer toe of right foot (7601128708344537 ) Other hammer toe(s) (acquired), right foot (M20.41) Active confirmed Problem Acquired hammer toe of left foot ([id number] ) Other hammer toe(s) (acquired), left foot (M20.42) Active confirmed Problem Polyneuropathy due to type 2 diabetes mellitus (937995130) Type 2 diabetes mellitus with diabetic polyneuropathy (E11.42) Active confirmed Problem Peripheral circulatory disorder associated with diabetes mellitus (269690460) Type 2 diabetes mellitus with other circulatory complications (E11.59) Active confirmed Vital Signs Heart Rate 93 /min 12/07/2024 Blood pressure diastolic 85 mm Hg 03/08/2025 Height 5 ft 2 in in 03/08/2025 Blood pressure systolic 159 mm Hg 03/08/2025 Weight 230 lbs 03/08/2025 BMI 42.06 kg/m2 03/08/2025 Procedures Procedure Date Ordered Date Performed Result Body Sit e 55638-HXLDIQY NAIL, 6 OR MORE 12/07/2024 N/A 71118-RAYH SKIN LESIONS, OVER 4 12/07/2024 N/A Encounters Encounter Location Date Provider Diagnosis [facility] [address] 12/07/2024 Herman Girard Pain in right toe(s) M79.674 ; Tinea unguium B35.1 ; Pain in left toe(s) M79.675 and Type 2 diabetes mellitus with other circulatory complications E11.[address] [address] 03/08/2025 Yadira Jacobsen Type 2 diabetes mellitus with diabetic polyneuropathy E11.42 ; Other hammer toe(s) (acquired), right foot M20.41 ; Tinea unguium B35.1 ; Other hammer toe(s) (acquired), left foot M20.42 and Type 2 diabetes mellitus with other circulatory complications E11.59 [facility] [address] [place] [address] 12/05/2024 Herman Girard Assessments Encounter Date Diagnosis [...] Treatment Pending Test Test Name Order Date 56333-[id number] NAIL, 6 OR MORE 12/07/2024 47246-SIGH SKIN LESIONS, OVER 4 12/07/19 25 Insurance Providers Payer Name Payer Address Payer Phone Subscriber Number Group Number Insured Name Patient Relationship to Insured Coverage Start Date Coverage End Date [facility] [address] [place], [place] [id number] Carl Green Self - patient is the [...]
--- OUTSIDE RECORDS SUMMARY | 2025-07-27 21:01 | XMS_ITS | Encounter Summary ---
Author Organization [facility] Address [address] [place] [address] Care Team Providers Care Seaman Officer Name Role Phone Flash Taylor MD Primary Care Provider [phone] Encounter Details Date Type Department Care Team (Late st Contact Info) Description 06/06/[address] [facility] - Main Lab 299 [facility] [place] [address] Kaylene Burns MD [address] [phone] Heart failure, unspecified (CMS/HCC V24, CMS/HCC V28); [...] V28) documented in this encounter Care Teams Seaman Officer Relationship Specialty Start Date End Date Flash Taylor MD [address] [place] [phone] PCP - General 12/02/07 documented as of this encounter
--- OUTSIDE RECORDS SUMMARY | 2025-07-27 21:01 | XMS_ITS | Encounter Summary ---
Author Organization [facility] Address [address] [place] [address] Care Team Providers Care Tack Puller Machine Name Role Phone Flsah Taylor MD Primary Care Provider [phone] Encounter Details Date Type Department Care Team (Late st Contact Info) Description 05/28/2025 Lab Requisition [facility] - Main Lab 299 [facility] [place] [address] Kaylene Burns MD [address] [phone] Heart failure, unspecified (CMS/HCC V24, CMS/HCC V28); [...] * Triiodothyronine free (05/28/2025 7:12 AM EDT) [facility] Signature T3, Free 243 230 - 420 pcg/dL LAB CHEMISTRY METHOD 05/28/2025 7:36 PM EDT [facility] Blood Venous blood specimen / Unknown Venipuncture / Unknown 05/28/2025 7:12 AM EDT 05/28/2025 10:18 AM EDT Kaylene Burns MD LAB BLOOD ORDERABLES Fin al Result Performing Organization Address [facility] Co de Phone Number [facility] [address] [place] [address], [place] [phone] * Free thyroxine with reflex to free triiodothyronine (05/28/2025 7:12 AM EDT) [facility] Free T4 1.10 0.70 - 1.80 ng/dL LAB CHEMISTRY METHOD 05/28/2025 6:03 PM EDT [facility] Blood Venous blood specimen / Unknown Venipuncture / Unknown 05/28/2025 7:12 AM EDT 05/28/2025 10:18 AM EDT Kaylene Burns MD LAB BLOOD ORDERABLES Fin al Result Performing Organization Address [facility] Co de Phone Number [facility] [address] [place] [address], [place] [phone] * (ABNORMAL) Folate (05/28/2025 7:12 AM EDT) [facility] Folate >20.0(H) 2.8 - 17.0 ng/ml LAB CHEMISTRY METHOD 05/28/2025 11:35 AM EDT [facility] Blood Venous blood specimen / Unknown Venipuncture / Unknown 05/28/2025 7:12 AM EDT 05/28/2025 10:18 AM EDT Kaylene Burns MD LAB BLOOD ORDERABLES Fin al Result Performing Organization Address [facility] Co de Phone Number [facility] [address] [place] [address], [place] [phone] * (ABNORMAL) Vitamin B12 (05/28/2025 7:12 AM EDT) [facility] Vitamin B-12 1,196(H) 250 - 900 pcg/mL LAB CHEMISTRY METHOD 05/28/2025 11:43 AM EDT [facility] Blood Venous blood specimen / Unknown Venipuncture / Unknown 05/28/2025 7:12 AM EDT 05/28/2025 10:18 AM EDT Kaylene Burns MD LAB BLOOD ORDERABLES Fin al Result Performing Organization Address [facility]/ZIP Co de Phone Number [facility] [address] [place] [address], [place] [phone] * (ABNORMAL) Thyroid stimulating hormone with reflex to free t4 and free t3 (05/28/2025 7:12 AM EDT) [facility] TSH 5.26(H) 0.40 - 4.00 mcIU/mL LAB CHEMISTRY METHOD 05/28/2025 5:28 PM EDT [facility] Blood Venous blood specimen / Unknown Venipuncture / Unknown 05/28/2025 7:12 AM EDT 05/28/2025 10:18 AM EDT Kaylene Burns MD LAB BLOOD ORDERABLES Fin al Result Performing Organization Address [facility]/ZIP Co de Phone Number [facility] [address] [place] [address], [place] [phone] * (ABNORMAL) Comprehensive metabolic panel (05/28/2025 7:12 AM EDT) [facility] Sodium 140 133 - 145 mmol/L LAB CHEMISTRY METHOD 05/28/2025 11:42 AM EDT [facility] Potassium 4.4 3.5 - 5.5 mmol/L LAB CHEMISTRY METHOD 05/28/2025 11:42 AM EDT [facility] Chloride 100 96 - 110 mmol/L LAB CHEMISTRY METHOD 05/28/2025 11:42 AM [facility] CO2 34(H) 21 - 32 mmol/L LAB CHEMISTRY METHOD 05/28/2025 11:42 AM [facility] Anion Gap 6 3 - 11 LAB CHEMISTRY METHOD 05/28/2025 11:42 AM [facility] Glucose 129(H) 70 - 100 mg/dL LAB CHEMISTRY METHOD 05/28/2025 11:42 AM [facility] BUN 107(H) 5 - 25 mg/dL LAB CHEMISTRY METHOD 05/28/2025 11:42 AM [facility] Comment:Results verified by repeat testing Creatinine 2.11(H) 0.50 - 1.10 mg/dL LAB CHEMISTRY METHOD 05/28/2025 11:42 AM [facility] eGFR 23(L) >=60 mL/min/1. 73m2 LAB CHEMISTRY METHOD 05/28/2025 11:42 AM [facility] Comment:Calculation based on the Chronic Kidney Disease Epidemiology Collaboration (CKD-EPI) equation refit without adjustment for race. BUN/Creatinine Ratio 50.7 LAB CHEMISTRY METHOD 05/28/2025 11:42 AM [facility] Calcium 7.0(L) 8.5 - 10.5 mg/dL LAB CHEMISTRY METHOD 05/28/2025 11:42 AM [facility] AST (SGOT) 26 10 - 42 unit/L LAB CHEMISTRY METHOD 05/28/2025 11:42 AM [facility] ALT (SGPT) 18 10 - 60 unit/L LAB CHEMISTRY METHOD 05/28/2025 11:42 AM [facility] Alkaline Phosphatase 67 42 - 121 unit/L LAB CHEMISTRY METHOD 05/28/2025 11:42 AM [facility] Total Protein 5.8(L) 6.0 - 8.0 g/dL LAB CHEMISTRY METHOD 05/28/2025 11:42 AM [facility] Albumin 2.4(L) 3.2 - 5.0 g/dL LAB CHEMISTRY METHOD 05/28/2025 11:42 AM EDT [facility] Total Bilirubin 0.5 0.0 - 1.4 mg/dL LAB CHEMISTRY METHOD 05/28/2025 11:42 AM [facility] Blood Venous blood specimen / Unknown Venipuncture / Unknown 05/28/2025 7:12 AM EDT 05/28/2025 10:18 AM EDT us Kaylene Burns MD LAB BLOOD ORDERABLES Fin al Result [facility] [address] [place] [address], * (ABNORMAL) Complete blood count (05/28/2025 7:12 AM EDT) WBC 9.4 4.8 - 10.8 K/mcL LAB HEMETOLOGY METHOD 05/28/2025 10:44 AM [facility] RBC 3.20(L) 3.80 - 4.80 M/mcL LAB HEMETOLOGY METHOD 05/28/2025 10:44 AM [facility] Hemoglobin 9.4(L) 11.5 - 16.0 g/dL LAB HEMETOLOGY METHOD 05/28/2025 10:44 AM [facility] Hematocrit 29.9(L) 35.0 - 47.0 % LAB HEMETOLOGY METHOD 05/28/2025 10:44 AM [facility] MCV 94.6 79.0 - 98.0 FL LAB HEMETOLOGY METHOD 05/28/2025 10:44 AM [facility] MCH 29.7 27.0 - 32.0 pcg LAB HEMETOLOGY METHOD 05/28/2025 10:44 AM [facility] MCHC 31.4(L) 32.0 - 37.0 g/dL LAB HEMETOLOGY METHOD 05/28/2025 10:44 AM EDT [facility] RDW 14.3 11.0 - 15.0 % LAB HEMETOLOGY METHOD 05/28/2025 10:44 AM EDT [facility] Platelets 288 130 - 400 K/mcL LAB HEMETOLOGY METHOD 05/28/2025 10:44 AM EDT [facility] MPV 11.4(H) 7.0 - 11.0 FL LAB HEMETOLOGY METHOD 05/28/2025 10:44 AM EDT [facility] NRBC 0.0 <1.0 % [facility] 05/28/2025 10:44 AM EDT [facility] NRBC Absolute 0.00 <0.10 K/mcL LAB [facility] 05/28/2025 10:44 AM EDT [facility] Blood Venous blood specimen / Unknown Venipuncture / Unknown 05/28/2025 7:12 AM EDT 05/28/2025 10:18 AM EDT Kaylene Burns MD LAB BLOOD ORDERABLES Fin al Result [facility] [address] [place] [address], documented in this encounter Visit Diagnoses Diagnosis Heart failure, unspecified (CMS/HCC V24, CMS/HCC V28) Heart failure, unspecified Chronic obstructive pulmonary disease, unspecified (CMS/HCC V24, CMS/HCC V28) Weakness Other malaise and fatigue documented in this encounter Care Teams Tack Puller Machine Relationship Specialty Start Date End Date Flash Taylor MD [address] [place] [address] PCP - General 12/02/07 documented as of this encounter
--- OUTSIDE RECORDS SUMMARY | 2025-07-27 21:01 | XMS_ITS | Encounter Summary ---
Author Organization [employer] Address [address] [place] [address] Care Team Providers Care Ladies Suit Operator Name Role Phone Flash Taylor MD Primary Care Provider [phone] Encounter Details Date Type Department Care Team (Late st Contact Info) Description 06/15/2025 Lab Requisition [facility] - Main Lab 299 [facility] [place] [address] Kaylene Burns MD [address] [phone] Acute kidney failure, unspecified (CMS/HCC V24) Social [...] CHEMISTRY METHOD 06/16/2025 9:01 AM EDT [facility] eGFR 31(L) >=60 mL/min/1. 73m2 LAB CHEMISTRY METHOD 06/16/2025 9:01 AM EDT [facility] Comment:Calculation based on the Chronic Kidney Disease Epidemiology Collaboration (CKD-EPI) equation refit without adjustment for race. Blood Venous blood specimen / Unknown Venipuncture / Unknown 06/16/2025 5:30 AM EDT 06/16/2025 8:04 AM EDT us Kaylene Burns MD LAB BLOOD ORDERABLES Fin al Result [facility] [address] [place] [address], documented in this encounter Visit Diagnoses Diagnosis Acute kidney failure, unspecified (CMS/HCC V24) Acute kidney failure, unspecified documented in this encounter Care Teams Ladies Suit Operator Relationship Specialty Start Date End Date Flash Taylor MD [address] [place] [phone] PCP - General 12/02/07 documented as of this encounter
--- OUTSIDE RECORDS SUMMARY | 2025-07-27 21:01 | XMS_ITS | Encounter Summary ---
Author Organization [employer] Address [address] [place] [address] Care Team Providers Care Tobacco Cutter Name Role Phone Flash Taylor MD Primary Care Provider [phone] Encounter Details Date Type Department Care Team (Late st Contact Info) Description 05/30/2025 Lab Requisition [facility] - Main Lab [address] [facility] [place] [address] Kaylene Burns MD [address] [phone] Heart failure, unspecified (CMS/HCC V24, CMS/HCC V28); [...] CMS/HCC V28) Chronic obstructive pulmonary disease, unspecified ([facility] V24, [facility] V28) documented in this encounter Results * (ABNORMAL) Basic metabolic panel (05/31/2025 6:35 AM EDT) Sodium 137 133 - 145 mmol/L LAB CHEMISTRY METHOD 05/31/2025 11:51 AM [facility] Potassium 4.4 3.5 - 5.5 mmol/L LAB CHEMISTRY METHOD 05/31/2025 11:51 AM [facility] Chloride 92(L) 96 - 110 mmol/L LAB CHEMISTRY METHOD 05/31/2025 11:51 AM [facility] CO2 36(H) 21 - 32 mmol/L LAB CHEMISTRY METHOD 05/31/2025 11:51 AM [facility] Anion Gap 9 3 - 11 LAB CHEMISTRY METHOD 05/31/2025 11:51 AM [facility] Glucose 160(H) 70 - 100 mg/dL LAB CHEMISTRY METHOD 05/31/2025 11:51 AM [facility] BUN 127(H) 5 - 25 mg/dL LAB CHEMISTRY METHOD 05/31/2025 11:51 AM [facility] Creatinine 2.41(H) 0.50 - 1.10 mg/dL LAB CHEMISTRY METHOD 05/31/2025 11:51 AM [facility] eGFR 20(L) >=60 mL/min/1. 73m2 LAB CHEMISTRY METHOD 05/31/2025 11:51 AM [facility] Comment:Calculation based on the Chronic Kidney Disease Epidemiology Collaboration (CKD-EPI) equation refit without adjustment for race. BUN/Creatinine Ratio 52.7 LAB CHEMISTRY METHOD 05/31/2025 11:51 AM [facility] Calcium 6.5(L) 8.5 - 10.5 mg/dL LAB CHEMISTRY METHOD 05/31/2025 11:[address] [facility] Blood Venous blood specimen / Unknown Venipuncture / Unknown 05/31/2025 6:35 AM EDT 05/31/2025 10:54 AM EDT us Kaylene Burns MD LAB BLOOD ORDERABLES Fin al Result [facility] [address] [place] [address], * (ABNORMAL) Complete blood count (05/31/2025 6:35 AM EDT) WBC 9.4 4.8 - 10.8 K/mcL LAB HEMETOLOGY METHOD 05/31/2025 11:[address] [facility] RBC 3.20(L) 3.80 - 4.80 M/mcL LAB HEMETOLOGY METHOD 05/31/2025 11:[address] [facility] Hemoglobin 9.5(L) 11.5 - 16.0 g/dL LAB HEMETOLOGY METHOD 05/31/2025 11:[address] [facility] Hematocrit 30.8(L) 35.0 - 47.0 % LAB HEMETOLOGY [facility] MCV 97.2 79.0 - 98.0 FL LAB HEMETOLOGY METHOD 05/31/2025 11:[address] [facility] MCH 30.0 27.0 - 32.0 pcg LAB HEMETOLOGY METHOD 05/31/2025 11:[address] [facility] MCHC 30.8(L) 32.0 - 37.0 g/dL LAB HEMETOLOGY METHOD 05/31/2025 11:23 AM [facility] RDW 14.5 11.0 - 15.0 % LAB HEMETOLOGY METHOD 05/31/2025 11:[address] [facility] Platelets 261 130 - 400 K/mcL LAB HEMETOLOGY METHOD 05/31/2025 11:[address] [facility] MPV 11.5(H) 7.0 - 11.0 FL LAB HEMETOLOGY METHOD 05/31/2025 11:[address] [facility] NRBC 0.0 <1.0 % LAB HEMETOLOGY METHOD 05/31/2025 11:[address] [facility] NRBC Absolute 0.00 <0.10 K/mcL LAB HEMETOLOGY METHOD 05/31/2025 11:[address] [facility] Blood Venous blood specimen / Unknown Venipuncture / Unknown 05/31/2025 6:35 AM EDT 05/31/2025 10:54 AM EDT Kaylene Burns MD LAB BLOOD ORDERABLES Fin al Result [facility] [address] [place] [address], documented in this encounter Visit Diagnoses Diagnosis Heart failure, unspecified (CMS/HCC V24, CMS/HCC V28) Heart failure, unspecified Chronic obstructive pulmonary disease, unspecified (CMS/HCC V24, CMS/HCC V28) documented in this encounter Care Teams Tobacco Cutter Relationship Specialty Start Date End Date Flash Taylor MD [address] [place] [phone] PCP - General 12/02/07 documented as of this encounter
--- OUTSIDE RECORDS SUMMARY | 2025-07-27 21:01 | XMS_ITS | Encounter Summary ---
Author Organization [employer] Address [address] [place] [address] Care Team Providers Care Visual Basic .Net Developer Name Role Phone Flash Taylor MD Primary Care Provider [phone] Encounter Details Date Type Department Care Team (Late st Contact Info) Description 06/16/2025 Lab Requisition [facility] - Main Lab 299 [facility] [place] [address] Kaylene Burns MD [address] [phone] Unspecified diastolic (congestive) heart failure ([facility] V24, [facility] V28); Type 2 diabetes mellitus without complications ([facility] V24, [facility] V28); Primary pulmonary hypertension ([facility] V24, [facility] V28); Chronic obstructive pulmonary disease with (acute) exacerbation ([facility] V24, [facility] V28) Social History Tobacco Use Types [...] AM EDT Unspecified diastolic (congestive) heart failure ([facility] V24, [facility] V28) Type 2 diabetes mellitus without complications ([facility] V24, [facility] V28) Primary pulmonary hypertension ([facility] V24, [facility] V28) Chronic obstructive pulmonary disease with (acute) exacerbation ([facility] V24, [facility] V28) BASIC METABOLIC PANEL Routine 06/18/2025 8:42 AM EDT Unspecified diastolic (congestive) heart failure ([facility] V24, [facility] V28) Type 2 diabetes mellitus without complications ([facility] V24, [facility] V28) Primary pulmonary hypertension ([facility] V24, [facility] V28) Chronic obstructive pulmonary disease with (acute) exacerbation ([facility] V24, [facility] V28) documented in this encounter Results * (ABNORMAL) Basic metabolic panel (06/18/2025 8:42 AM EDT) Sodium 141 133 - 145 mmol/L LAB CHEMISTRY METHOD 06/18/2025 12:49 PM [facility] Potassium 4.6 3.5 - 5.5 mmol/L LAB CHEMISTRY METHOD 06/18/2025 12:49 PM [facility] Chloride 103 96 - 110 mmol/L LAB CHEMISTRY METHOD 06/18/2025 12:49 PM [facility] CO2 29 21 - 32 mmol/L LAB CHEMISTRY METHOD 06/18/2025 12:49 PM [facility] Anion Gap 9 3 - 11 LAB CHEMISTRY METHOD 06/18/2025 12:49 PM [facility] Glucose 174(H) 70 - 100 mg/dL LAB CHEMISTRY METHOD 06/18/2025 12:49 PM [facility] BUN 55(H) 5 - 25 mg/dL LAB CHEMISTRY METHOD 06/18/2025 12:49 PM [facility] Creatinine 1.92(H) 0.50 - 1.10 mg/dL LAB CHEMISTRY METHOD 06/18/2025 12:49 PM [facility] eGFR 26(L) >=60 mL/min/1. 73m2 LAB CHEMISTRY METHOD 06/18/2025 12:49 PM EDT [facility] Comment:Calculation based on the Chronic Kidney Disease Epidemiology Collaboration (CKD-EPI) equation refit without adjustment for race. BUN/Creatinine Ratio 28.6 LAB CHEMISTRY METHOD 06/18/2025 12:49 PM EDT [facility] Calcium 7.2(L) 8.5 - 10.5 mg/dL LAB CHEMISTRY METHOD 06/18/2025 12:49 PM EDT [facility] Blood Venous blood specimen / Unknown Venipuncture / Unknown 06/18/2025 8:42 AM EDT 06/18/2025 11:17 AM EDT us Kaylene Burns MD LAB BLOOD ORDERABLES Fin al Result [facility] [address] [place] [address], * (ABNORMAL) Complete blood count (06/18/2025 8:42 AM EDT) WBC 6.8 4.8 - 10.8 K/mcL LAB HEMETOLOGY METHOD 06/18/2025 1:24 PM EDT [facility] RBC 3.40(L) 3.80 - 4.80 M/mcL LAB HEMETOLOGY METHOD 06/18/2025 1:24 PM EDT [facility] Hemoglobin 10.0(L) 11.5 - 16.0 g/dL LAB HEMETOLOGY METHOD 06/18/2025 1:24 PM EDT [facility] Hematocrit 33.0(L) 35.0 - 47.0 % LAB HEMETOLOGY METHOD 06/18/2025 1:24 PM EDT [facility] MCV 97.9 79.0 - 98.0 FL LAB HEMETOLOGY METHOD 06/18/2025 1:24 PM EDT [facility] MCH 29.7 27.0 - 32.0 pcg LAB HEMETOLOGY METHOD 06/18/2025 1:24 PM EDT [facility] MCHC 30.3(L) 32.0 - 37.0 g/dL LAB HEMETOLOGY METHOD 06/18/2025 1:24 PM EDT [facility] RDW 15.1(H) 11.0 - 15.0 % LAB HEMETOLOGY METHOD 06/18/2025 1:24 PM EDT [facility] Platelets 195 130 - 400 K/mcL LAB HEMETOLOGY METHOD 06/18/2025 1:24 PM EDT [facility] MPV 12.0(H) 7.0 - 11.0 FL LAB HEMETOLOGY METHOD 06/18/2025 1:24 PM EDT [facility] NRBC 0.0 <1.0 % LAB HEMETOLOGY METHOD 06/18/2025 1:24 PM EDT [facility] NRBC Absolute 0.00 <0.10 K/mcL LAB HEMETOLOGY METHOD 06/18/2025 1:24 PM EDT [facility] Blood Venous blood specimen / Unknown Venipuncture / Unknown 06/18/2025 8:42 AM EDT 06/18/2025 11:17 AM EDT us Kaylene Burns MD LAB BLOOD ORDERABLES Fin al Result [facility] [address] [place] [address], documented in this encounter Visit Diagnoses Diagnosis Unspecified diastolic (congestive) heart failure (CMS/HCC V24, [facility] V28) Type 2 diabetes mellitus without complications (CMS/HCC V24, [facility] V28) Primary pulmonary hypertension (CMS/HCC V24, [facility] V28) Primary pulmonary hypertension Chronic obstructive pulmonary disease with (acute) exacerbation (CMS/HCC V24, [facility] V28) documented in this encounter Care Teams Visual Basic .Net Developer Relationship Specialty Start Date End Date Flash Taylor MD [address] [place] [phone] PCP - General 12/02/07 documented as of this encounter
--- OUTSIDE RECORDS SUMMARY | 2025-07-27 21:01 | XMS_ITS | Encounter Summary ---
Author Organization [employer] Address [address] [place] [address] Care Team Providers Care Community Living Instructor Name Role Phone Flash Taylor MD Primary Care Provider [phone] Encounter Details Date Type Department Care Team (Late st Contact Info) Description 06/02/[address] [facility] - Main Lab [address] [facility] [place] [address] Kaylene Burns MD [address] [phone] Urinary tract infection, site not specified Social [...] Urinalysis with reflex microscopic (06/02/2025 3:00 AM [facility]) Specific [place] Urine 1.010 1.003 - 1.030 LAB URINALYSIS - AUTOMATED METHOD 06/02/2025 11:41 AM [facility] pH, Urine 6.0 5.0 - 8.0 pH LAB URINALYSIS - AUTOMATED METHOD 06/02/2025 11:41 AM [facility] Leukocytes, Urine Large(A) Negative LAB URINALYSIS - AUTOMATED METHOD 06/02/2025 11:41 AM [facility] Nitrite, Urine Negative Negative LAB URINALYSIS - AUTOMATED METHOD 06/02/2025 11:41 AM [facility] Protein, Urine 30(A) <=Trace mg/dL LAB URINALYSIS - AUTOMATED METHOD 06/02/2025 11:41 AM [facility] Glucose, Urine 250(A) Negative mg/dL LAB URINALYSIS - AUTOMATED METHOD 06/02/2025 11:41 AM [facility] Ketones, Urine Negative Negative mg/dL LAB URINALYSIS - AUTOMATED METHOD 06/02/2025 11:41 AM [facility] Urobilinogen , Urine 0.2 0.2 - 1.0 mg/dL LAB URINALYSIS - AUTOMATED METHOD 06/02/2025 11:41 AM [facility] Bilirubin, Urine Negative Negative LAB URINALYSIS - AUTOMATED METHOD 06/02/2025 11:41 AM [facility] Blood, Urine Small(A) Negative LAB URINALYSIS - AUTOMATED METHOD 06/02/2025 11:41 AM [facility] RBC, Urine 2.9 0 - 4 /HPF LAB URINALYSIS - AUTOMATED METHOD 06/02/2025 11:41 AM [facility] WBC, Urine 622.7(H) 0 - 4 /HPF LAB URINALYSIS - AUTOMATED METHOD 06/02/2025 11:41 AM EDT [facility] Squamous Epithelial, Urine 2 0 - 60 /LPF LAB URINALYSIS - AUTOMATED METHOD 06/02/2025 11:41 AM EDT [facility] Bacteria, Urine Negative Negative /HPF LAB URINALYSIS - AUTOMATED METHOD 06/02/2025 11:41 AM EDT [facility] Hyaline Casts, Urine 4.4(H) 0 - 3 /LPF LAB URINALYSIS - AUTOMATED METHOD 06/02/2025 11:41 AM EDT [facility] Yeast, Urine Present(A) None /HPF LAB URINALYSIS - AUTOMATED METHOD 06/02/2025 11:41 AM EDT [facility] Urine Urine specimen obtained by clean catch procedure / Unknown Non-blood Collection / Unknown 06/02/2025 3:00 AM EDT 06/02/2025 10:49 AM EDT Kaylene Burns MD LAB URINE ORDERABLES Fin al Result Performing Organization Address [facility]/ZIP Co de Phone Number [facility] [address] [place] [address], [place] [phone] * Culture urine (06/02/2025 3:00 AM EDT) Culture, Urine No growth 06/03/2025 11:11 AM EDT [facility] Urine Urine specimen obtained by clean catch procedure / Unknown Non-blood Collection / Unknown 06/02/2025 3:00 AM EDT 06/02/2025 10:49 AM EDT Kaylene Burns MD LAB MICROBIOLOGY - GENER AL ORDERABLES Final Result [facility] [address] [place] [address], [place] [phone] documented in this encounter Visit Diagnoses Diagnosis Urinary tract infection, site not specified documented in this encounter Care Teams Community Living Instructor Relationship Specialty Start Date End Date Flash Taylor MD [address] [place] [phone] PCP - General 12/02/07 documented as of this encounter
--- OUTSIDE RECORDS SUMMARY | 2025-07-27 21:01 | XMS_ITS | Encounter Summary ---
Author Organization [employer] Address [address] [place] [address] Care Team Providers Care Travel Insurance Agent Name Role Phone Flash Taylor MD Primary Care Provider [phone] Encounter Details Date Type Department Care Team (Late st Contact Info) Description 06/03/2025 Lab Requisition [facility] - Main Lab [address] [facility] [place] [address] Kaylene Burns MD [address] [phone] Heart failure, unspecified (CMS/HCC V24, CMS/HCC V28); [...] V28) documented in this encounter Care Teams Travel Insurance Agent Relationship Specialty Start Date End Date Flash Taylor MD [address] [place] [phone] PCP - General 12/02/07 documented as of this encounter
--- OUTSIDE RECORDS SUMMARY | 2025-07-27 21:01 | XMS_ITS | Clinical Summary ---
Author Organization [facility] Schematic Labs Address [address] [place] [address] Phone Care Team Providers Care Audio Installer Name Role Phone Flash Taylor MD Primary [...] Date Acute respiratory failure wi th hypercapnia ([facility] V24, [facility] V28) 05/18/2023 CKD (chronic kidney disease) , stage III ([facility] V24, [facility] V28) 05/18/2023 COPD (chronic obstructive pu lmonary disease) ([facility] V24, [facility] V28) 02/25/2023 Overview (10/11/2024): Last Assessment & Plan: The patient has a history of COPD on home oxygen therapy. She was also noted to have mild pulmonary hypertension on the echocardiogram. The patient is followed closely by her ditch digger. She was encouraged to continue to follow-up with her ditch digger regarding the management of her COPD. Edema [...] head injury. She was evaluated at the [facility] and they completed a head CT scan [...] failure with p reserved ejection fraction (HFpEF) ([facility] V24, [facility] V28) 06/05/2021 Overview (10/11/2024): Last [...] Department Care Team Description 06/22/2025 Lab Requisition [facility] - Main Lab [address] [place] [address] Kaylene Burns MD Unspecified diastolic (congestive) heart failure ([facility] V24, [facility] V28); Type 2 diabetes mellitus without complications ([facility] V24, [facility] V28); Primary pulmonary hypertension ([facility] V24, [facility] V28); Chronic obstructive pulmonary disease with (acute) exacerbation ([facility] V24, [facility] V28) 06/16/2025 Lab Requisition [facility] [address] [place] [phone] Kaylene Burns MD Unspecified diastolic (congestive) heart failure ([facility] V24, [facility] V28); Type 2 diabetes mellitus without complications ([facility] V24, [facility] V28); Primary pulmonary hypertension ([facility] V24, [facility] V28); Chronic obstructive pulmonary disease with (acute) exacerbation ([facility] V24, [facility] V28) 06/15/2025 Lab Requisition [facility] [address] [place] [phone] Kaylene Burns MD Acute kidney failure, unspecified ([facility] V24) 06/14/2025 Lab Requisition [facility] [address] [place] [phone] Kaylene Burns MD Unspecified diastolic (congestive) heart failure ([facility] V24, [facility] V28); Acute kidney failure, unspecified ([facility] V24); Chronic obstructive pulmonary disease with (acute) exacerbation ([facility] V24, [facility] V28); Primary pulmonary hypertension ([facility] V24, [facility] V28); Type 2 diabetes mellitus without complications ([facility] V24, [facility] V28); Vitamin D deficiency, unspecified 06/06/2025 Lab Requisition [facility] [address] [place] [phone] Kaylene Burns MD Heart failure, unspecified ([facility] V24, [facility] V28); Chronic obstructive pulmonary disease, unspecified ([facility] [place]24, [facility] V28) 06/03/2025 Lab Requisition [facility] [address] [place] [phone] Kaylene Burns MD Heart failure, unspecified ([facility] V24, [facility] [place] V28); Chronic obstructive pulmonary disease, unspecified ([facility] [place] V24, [facility] V28) 06/03/2025 Lab Requisition [facility] [address] [place] [phone] Kaylene Burns MD Heart failure, unspecified ([facility] [place] V24, [facility] [place] V28); Chronic obstructive pulmonary disease, unspecified ([facility] [place] V24, [facility] [place] V28) 06/02/2025 Lab Requisition [facility] [address] [place] [phone] Kaylene Burns MD Urinary tract infection, site not specified 05/30/2025 Lab Requisition [facility] [address] [place] [phone] Kaylene Burns MD Heart failure, unspecified ([facility] [place] V24, [facility] [place] V28); Chronic obstructive pulmonary disease, unspecified ([facility] [place] V24, [facility] [place] V28) 05/28/2025 Lab Requisition [facility] [address] [place] [phone] Kaylene Burns MD Heart failure, unspecified ([facility] [place] V24, [facility] [place] V28); Chronic obstructive pulmonary disease, unspecified ([facility] [place] V24, [facility] [place] V28); Weakness 05/15/2025 Telephone [facility] Cardiology [facility] [address] [place] [phone] Jay Delaney MD from Last 3 Months Immunizations Name Administration Dates Next Due Pfizer SARS-CoV-2 COVID-19, mRNA, LNP-S, preservative free 01/25/2021,01/13/2021 Surgical History Surgery Date Site/Laterality Comments HYSTERECTOMY PROCEDURE: HISTORICAL HYSTERECTOMY OTHER SURGICAL HISTORY PROCEDURE: ORTHO X-RAY OF CERVICAL SPINE (4 VIEWS) Medical History Medical History Date Comments Essential hypertension DX:Essent ial hypertension Diabetes 1.5, managed as typ e 2 ([facility] [place] V24, [facility] [place] V28) DX:Diabetes 1.5, managed as type 2 (HCC) ROBERTO (obstructive sleep apnea) DX :ROBERTO (obstructive sleep apnea) Allergic rhinitis due to pollen DX:Allergic rhinitis due to pollen Obesity (BMI 30.0-34.9) DX:Obesi ty (BMI 30.0-34.9) Heart failure ([facility] [place] V24, [facility] [place] V28) DX:Heart failure (HCC) Bronchitis DX:Bronchitis HTN (hypertension) DX:HTN (hyper tension) Diabetes mellitus ([facility] [place] V 24, [facility] [place] V28) DX:Diabetes mellitus ([facility]) Shingles DX:Shingles Severe obesity ([facility] [place] V24, [facility] [place] V28) DX:Severe obesity ([facility]) Somnolence DX:Somnolence Hypocalcemia DX:Hypocalcemia Xzrlq-cw-baqhkqh kidney inju ry ([facility] [place] V24) DX:Kpxet-lt-wrxtnbh kidney i njury ([facility]) Cellulitis DX:Cellulitis Family History Medical [...] AM EDT Unspecified diastolic (congestive) heart failure ([facility] V24, [facility] V28) Type 2 diabetes mellitus without complications ([facility] V24, [facility] V28) Primary pulmonary hypertension ([facility] V24, [facility] V28) Chronic obstructive pulmonary disease [...] 0 AM EDT Acute kidney failure, unspecified ([facility] V24) HEMOGLOBIN A1C Routine 06/14/2025 [...] V24, [facility] V28) Acute kidney failure, unspecified ([facility] V24) Chronic obstructive pulmonary disease with (acute) exacerbation ([facility] V24, [facility] V28) Primary pulmonary hypertension ([facility] V24, [facility] V28) Type 2 diabetes mellitus without complications ([facility] V24, [facility] V28) Vitamin D deficiency, unspecified VITAMIN B12 Routine 06/14/2025 7:18 AM EDT Unspecified diastolic (congestive) heart failure ([facility] V24, [facility] V28) Acute kidney failure, unspecified ([facility] V24) Chronic obstructive pulmonary disease with (acute) exacerbation ([facility] V24, [facility] V28) Primary pulmonary hypertension ([facility] V24, [facility] V28) Type 2 diabetes mellitus without complications ([facility] V24, [facility] V28) Vitamin D deficiency, unspecified FOLATE Routine 06/14/2025 7:18 AM EDT Unspecified diastolic (congestive) heart failure ([facility] V24, [facility] V28) Acute kidney failure, unspecified ([facility] V24) Chronic obstructive pulmonary disease with (acute) [...] V28) Type 2 diabetes mellitus without complications ([facility] V24, [facility] V28) Vitamin D deficiency, unspecified COMPREHENSIVE METABOLIC PANEL Routine 06/14/2025 7:18 AM EDT Unspecified diastolic (congestive) heart failure ([facility] V24, [facility] V28) Acute kidney failure, unspecified ([facility] V24) Chronic obstructive pulmonary disease with (acute) exacerbation ([facility] V24, [facility] V28) Primary pulmonary hypertension ([facility] V24, [facility] V28) Type 2 diabetes mellitus without complications ([facility] V24, [facility] V28) Vitamin D deficiency, unspecified COMPLETE BLOOD COUNT Routine 06/14/2025 7:18 AM EDT Unspecified diastolic (congestive) heart failure ([facility] V24, [facility] V28) Acute kidney failure, unspecified ([facility] V24) Chronic obstructive pulmonary disease with (acute) exacerbation ([facility] V24, [facility] V28) Primary pulmonary hypertension ([facility] V24, [facility] V28) Type 2 diabetes mellitus without complications ([facility] V24, [facility] V28) Vitamin D deficiency, unspecified URINALYSIS WITH REFLEX MICROSCOPIC Routine 06/02/2025 3:00 AM EDT Urinary tract infection, site not specified URINALYSIS WITH REFLEX MICROSCOPIC Routine 06/02/2025 3:00 AM EDT Urinary tract infection, site not specified CULTURE URINE Routine 06/02/2025 3:00 AM EDT Urinary tract infection, site not specified BASIC METABOLIC PANEL Routine 05/31/2025 6:35 AM EDT Heart failure, unspecified ([facility] V24, [facility] V28) Chronic obstructive pulmonary disease, unspecified ([facility] V24, [facility] V28) COMPLETE BLOOD COUNT Routine 05/31/2025 6:35 AM EDT Heart failure, unspecified ([facility] V24, [facility] V28) Chronic obstructive pulmonary disease, [...] K/mcL LAB [facility] RBC 3.40(L) 3.80 - 4.80 M/mcL LAB HEMETOLOGY METHOD 06/18/2025 1:24 PM [facility] Hemoglobin 10.0(L) 11.5 - 16.0 g/dL LAB HEMETOLOGY METHOD 06/18/2025 1:24 PM [facility] LAB Hematocrit 33.0(L) 35.0 - 47.0 % LAB [facility]ETOLOGY METHOD [facility]25 [facility] MCV 97.9 79.0 - 98.0 FL LAB HEMETOLOGY METHOD 06/18/2025 1:24 PM [facility] MCH 29.7 27.0 - 32.0 pcg LAB HEMETOLOGY METHOD 06/18/2025 1:24 PM [facility] MCHC 30.3(L) 32.0 - 37.0 g/dL LAB HEMETOLOGY METHOD 06/18/2025 1:24 PM [facility] RDW 15.1(H) 11.0 - 15.0 % LAB HEMETOLOGY METHOD 06/18/2025 1:24 PM [facility] Platelets 195 130 - 400 K/mcL LAB HEMETOLOGY METHOD 06/18/2025 1:24 PM [facility] MPV 12.0(H) 7.0 - 11.0 FL LAB HEMETOLOGY METHOD 06/18/2025 1:24 PM EDT [facility] NRBC 0.0 <1.0 % LAB HEMETOLOGY METHOD 06/18/2025 1:24 PM EDT [facility] NRBC Absolute 0.00 <0.10 K/mcL LAB HEMETOLOGY METHOD 06/18/2025 1:24 PM EDT [facility] Blood Venous blood specimen / Unknown Venipuncture / Unknown 06/18/2025 8:42 AM EDT 06/18/2025 11:17 AM EDT us Kaylene Burns MD LAB BLOOD ORDERABLES Fin al Result [facility] [address] [place] [address], * (ABNORMAL) Basic metabolic panel (06/18/2025 8:42 AM EDT) Only the most recent of2 resultswithin the time period is included. Sodium 141 133 - 145 mmol/L LAB CHEMISTRY METHOD 06/18/2025 12:49 PM [facility] Potassium 4.6 3.5 - 5.5 mmol/L LAB CHEMISTRY METHOD 06/18/2025 12:49 PM [facility] Chloride 103 96 - 110 mmol/L LAB CHEMISTRY METHOD 06/18/2025 12:49 PM [facility] CO2 29 21 - 32 mmol/L LAB CHEMISTRY METHOD 06/18/2025 12:49 PM [facility] Anion Gap 9 3 - 11 LAB CHEMISTRY METHOD 06/18/2025 12:49 PM [facility] Glucose 174(H) 70 - 100 mg/dL LAB CHEMISTRY METHOD 06/18/2025 12:49 PM [facility] BUN 55(H) 5 - 25 mg/dL LAB CHEMISTRY METHOD 06/18/2025 12:49 PM EDT [facility] Creatinine 1.92(H) 0.50 - 1.10 mg/dL LAB CHEMISTRY METHOD 06/18/2025 12:49 PM EDT [facility] eGFR 26(L) >=60 mL/min/1. 73m2 LAB CHEMISTRY METHOD 06/18/2025 12:49 PM EDT [facility] Comment:Calculation based on the Chronic Kidney Disease Epidemiology Collaboration (CKD-EPI) equation refit without adjustment for race. BUN/Creatinine Ratio 28.6 LAB CHEMISTRY METHOD 06/18/2025 12:49 PM EDT [facility] Calcium 7.2(L) 8.5 - 10.5 mg/dL LAB CHEMISTRY METHOD 06/18/2025 12:49 PM EDT [facility] Blood Venous blood specimen / Unknown Venipuncture / Unknown 06/18/2025 8:42 AM EDT 06/18/2025 11:17 AM EDT us Kaylene Burns MD LAB BLOOD ORDERABLES Fin al Result [facility] [address] [place] [address], * (ABNORMAL) Creatinine (06/16/2025 5:30 AM EDT) Creatinine 1.67(H) 0.50 - 1.10 mg/dL LAB CHEMISTRY METHOD 06/16/2025 9:01 AM EDT [facility] eGFR 31(L) >=60 mL/min/1. 73m2 LAB CHEMISTRY METHOD 06/16/2025 9:01 AM EDT [facility] Comment:Calculation based on the Chronic Kidney Disease Epidemiology Collaboration (CKD-EPI) equation refit without adjustment for race. Blood Venous blood specimen / Unknown Venipuncture / Unknown 06/16/2025 5:30 AM EDT 06/16/2025 8:04 AM EDT Kaylene Burns MD LAB BLOOD ORDERABLES Fin al Result Performing Organization Address [facility] Co de Phone Number [facility] [address] [place] [address], [place] [phone] * Vitamin D 25 hydroxy (06/14/2025 7:18 AM EDT) [facility] Vit D, 25-Hydroxy 57.9 30.0 - 80.0 ng/mL LAB CHEMISTRY METHOD 06/14/2025 12:02 PM EDT [facility] Blood Venous blood specimen / Unknown Venipuncture / Unknown 06/14/2025 7:18 AM EDT 06/14/2025 8:30 AM EDT Kaylene Burns MD LAB BLOOD ORDERABLES Fin al Result Performing Organization Address [facility] de Phone Number [facility] [address] [place] [address], [place] [phone] * (ABNORMAL) Magnesium (06/14/2025 7:18 AM EDT) [facility] Magnesium 1.8(L) 1.9 - 2.6 mg/dL LAB CHEMISTRY METHOD 06/14/2025 9:25 AM EDT [facility] Blood Venous blood specimen / Unknown Venipuncture / Unknown 06/14/2025 7:18 AM EDT 06/14/2025 8:30 AM EDT Kaylene Burns MD LAB BLOOD ORDERABLES Fin al Result Performing Organization Address [facility] Co de Phone Number [facility] [address] [place] [address], [place] [phone] * (ABNORMAL) Hemoglobin A1c (06/14/2025 7:18 AM EDT) Hemoglobin A1C 8.4(H) <6.5 % LAB CHEMISTRY METHOD 06/14/2025 11:00 AM EDT [facility] Mean Bld Glu Estim. 194 mg/dL LAB CHEMISTRY METHOD 06/14/2025 11:00 AM EDT [facility] Blood Venous blood specimen / Unknown Venipuncture / Unknown 06/14/2025 7:18 AM EDT 06/14/2025 8:30 AM EDT Kaylene Burns MD LAB BLOOD ORDERABLES Fin al Result Performing Organization Address City/[facility]/ZIP Co de Phone Number [facility] [address] [place] [address], [place] [phone] * (ABNORMAL) Folate (06/14/2025 7:18 AM EDT) Only the most recent of2 resultswithin the time period is included. Pathologist [facility] Folate >20.0(H) 2.8 - 17.0 ng/ml LAB CHEMISTRY METHOD 06/14/2025 9:38 AM EDT [facility] Blood Venous blood specimen / Unknown Venipuncture / Unknown 06/14/2025 7:18 AM EDT 06/14/2025 8:30 AM EDT Kaylene Burns MD LAB BLOOD ORDERABLES Fin al Result [facility] [address] [place] [address], [place] [phone] * (ABNORMAL) Vitamin B12 (06/14/2025 7:18 AM EDT) Only the most recent of2 resultswithin the time period is included. Vitamin B-12 952(H) 250 - 900 pcg/mL LAB CHEMISTRY METHOD 06/14/2025 9:48 AM EDT [facility] Blood Venous blood specimen / Unknown Venipuncture / Unknown 06/14/2025 7:18 AM EDT 06/14/2025 8:30 AM EDT us Kaylene Burns MD LAB BLOOD ORDERABLES Fin al Result [facility] [address] [place] [address], [place] [phone] * (ABNORMAL) Comprehensive metabolic panel (06/14/2025 7:18 AM EDT) Only the most recent of2 resultswithin the time period is included. Sodium 143 133 - 145 mmol/L LAB CHEMISTRY METHOD 06/14/2025 9:46 AM [facility] Potassium 4.5 3.5 - 5.5 mmol/L LAB CHEMISTRY METHOD 06/14/2025 9:46 AM [facility] Chloride 107 96 - 110 mmol/L LAB CHEMISTRY METHOD 06/14/2025 9:46 AM [facility] Comment:Results verified by repeat testing CO2 32 21 - 32 mmol/L LAB CHEMISTRY METHOD 06/14/2025 9:46 AM [facility] Anion Gap 4 3 - 11 LAB CHEMISTRY METHOD 06/14/2025 9:46 AM [facility] Glucose 141(H) 70 - 100 mg/dL LAB CHEMISTRY METHOD 06/14/2025 9:46 AM [facility] BUN 73(H) 5 - 25 mg/dL LAB CHEMISTRY METHOD 06/14/2025 9:46 AM [facility] Creatinine 1.73(H) 0.50 - 1.10 mg/dL LAB CHEMISTRY METHOD 06/14/2025 9:46 AM [facility] eGFR 30(L) >=60 mL/min/1. 73m2 LAB CHEMISTRY METHOD 06/14/2025 9:46 AM [facility] Comment:Calculation based on the Chronic Kidney Disease Epidemiology Collaboration (CKD-EPI) equation refit without adjustment for race. BUN/Creatinine Ratio 42.2 LAB CHEMISTRY METHOD 06/14/2025 9:46 AM [facility] Calcium 7.6(L) 8.5 - 10.5 mg/dL LAB CHEMISTRY METHOD 06/14/2025 9:46 AM [facility] AST (SGOT) 19 10 - 42 unit/L LAB CHEMISTRY METHOD 06/14/2025 9:46 AM [facility] ALT (SGPT) 13 10 - 60 unit/L LAB CHEMISTRY METHOD 06/14/2025 9:46 AM [facility] Alkaline Phosphatase 58 42 - 121 unit/L LAB CHEMISTRY METHOD 06/14/2025 9:46 AM [facility] Total Protein 5.3(L) 6.0 - 8.0 g/dL LAB CHEMISTRY METHOD 06/14/2025 9:46 AM [facility] Albumin 2.6(L) 3.2 - 5.0 g/dL LAB CHEMISTRY METHOD 06/14/2025 9:46 AM [facility] Total Bilirubin 0.6 0.0 - 1.4 mg/dL LAB CHEMISTRY METHOD 06/14/2025 9:46 AM [facility] Blood Venous blood specimen / Unknown Venipuncture / Unknown 06/14/2025 7:18 AM EDT 06/14/2025 8:30 AM EDT us Kaylene Burns MD LAB BLOOD ORDERABLES Fin al Result [facility] [address] [place] [address], * (ABNORMAL) Urinalysis with reflex microscopic (06/02/2025 3:00 AM EDT) Specific [place] Urine 1.010 1.003 - 1.030 LAB URINALYSIS - AUTOMATED METHOD 06/02/2025 11:41 AM [facility] pH, Urine 6.0 5.0 - 8.0 pH LAB URINALYSIS - AUTOMATED METHOD 06/02/2025 11:41 AM [facility] Leukocytes, Urine Large(A) Negative LAB URINALYSIS - AUTOMATED METHOD 06/02/2025 11:41 AM [facility] Nitrite, Urine Negative Negative LAB URINALYSIS - AUTOMATED METHOD 06/02/2025 11:41 AM [facility] Protein, Urine 30(A) <=Trace mg/dL LAB URINALYSIS - AUTOMATED METHOD 06/02/2025 11:41 AM [facility] Glucose, Urine 250(A) Negative mg/dL LAB URINALYSIS - AUTOMATED METHOD 06/02/2025 11:41 AM [facility] Ketones, Urine Negative Negative mg/dL LAB URINALYSIS - AUTOMATED METHOD 06/02/2025 11:41 AM [facility] Urobilinogen , Urine 0.2 0.2 - 1.0 mg/dL LAB URINALYSIS - AUTOMATED METHOD 06/02/2025 11:41 AM [facility] Bilirubin, Urine Negative Negative LAB URINALYSIS - AUTOMATED METHOD 06/02/2025 11:41 AM [facility] Blood, Urine Small(A) Negative LAB URINALYSIS - AUTOMATED METHOD 06/02/2025 11:41 AM [facility] RBC, Urine 2.9 0 - 4 /HPF LAB URINALYSIS - AUTOMATED METHOD 06/02/2025 11:41 AM [facility] WBC, Urine 622.7(H) 0 - 4 /HPF LAB URINALYSIS - AUTOMATED METHOD 06/02/2025 11:41 AM [facility] Squamous Epithelial, Urine 2 0 - 60 /LPF LAB URINALYSIS - AUTOMATED METHOD 06/02/2025 11:41 AM EDT [facility] Bacteria, Urine Negative Negative /HPF LAB URINALYSIS - AUTOMATED METHOD 06/02/2025 11:41 AM EDT [facility] Hyaline Casts, Urine 4.4(H) 0 - 3 /LPF LAB URINALYSIS - AUTOMATED METHOD 06/02/2025 11:41 AM EDT [facility] Yeast, Urine Present(A) None /HPF LAB URINALYSIS - AUTOMATED METHOD 06/02/2025 11:41 AM EDT [facility] Urine Urine specimen obtained by clean catch procedure / Unknown Non-blood Collection / Unknown 06/02/2025 3:00 AM EDT 06/02/2025 10:49 AM EDT Kaylene Burns MD LAB URINE ORDERABLES Fin al Result Performing Organization Address [facility]/ZIP Co de Phone Number [facility] [address] [place] [address], [place] [phone] * Culture urine (06/02/2025 3:00 AM EDT) Pathologist [facility] Culture, Urine No growth 06/03/2025 11:11 AM EDT [facility] Urine Urine specimen obtained by clean catch procedure / Unknown Non-blood Collection / Unknown 06/02/2025 3:00 AM EDT 06/02/2025 10:49 AM EDT Kaylene Burns MD LAB MICROBIOLOGY - GENER AL ORDERABLES Final Result Performing Organization Address [facility] Hospital/[facility]/ZIP Co de Phone Number [facility] [address] [place] [address], [place] [phone] * (ABNORMAL) Thyroid stimulating hormone with reflex to free t4 and free t3 (05/28/2025 7:12 AM EDT) TSH 5.26(H) 0.40 - 4.00 mcIU/mL LAB CHEMISTRY METHOD 05/28/2025 5:28 PM EDT [facility] Blood Venous blood specimen / Unknown Venipuncture / Unknown 05/28/2025 7:12 AM EDT 05/28/2025 10:18 AM EDT Kaylene Burns MD LAB BLOOD ORDERABLES Fin al Result Performing Organization Address [facility] de Phone Number [facility] [address] [place] [address], [place] [phone] * Free thyroxine with reflex to free triiodothyronine (05/28/2025 7:12 AM EDT) Free T4 1.10 0.70 - 1.80 ng/dL LAB CHEMISTRY METHOD 05/28/2025 6:03 PM EDT [facility] Blood Venous blood specimen / Unknown Venipuncture / Unknown 05/28/2025 7:12 AM EDT 05/28/2025 10:18 AM EDT Kaylene Burns MD LAB BLOOD ORDERABLES Fin al Result Performing Organization Address [facility] de Phone Number [facility] [address] [place] [address], [place] [phone] * Triiodothyronine free (05/28/2025 7:12 AM EDT) T3, Free 243 230 - 420 pcg/dL LAB CHEMISTRY METHOD 05/28/2025 7:36 PM EDT [facility] Blood Venous blood specimen / Unknown Venipuncture / Unknown 05/28/2025 7:12 AM EDT 05/28/2025 10:18 AM EDT Kaylene Burns MD LAB BLOOD ORDERABLES Fin al Result Performing Organization Address [facility] Co de Phone Number [facility] [address] [place] [address], * Lipid panel (04/17/2024) LDL/HDL Ratio 0 [...] MEDICARE ADVANTAGE [place]ICAID - [place] Care Teams Audio Installer Relationship Specialty Start Date End Date Flash Taylor MD [address] [place] [phone] PCP - General 12/02/07
--- OUTSIDE RECORDS SUMMARY | 2025-07-27 21:01 | XMS_ITS | Clinical Summary ---
Author Organization Formerly [facility] Address [address] [facility] [address] [place] [phone] Phone Care Team Providers Care Chief Nurse Anesthetist Name Role Phone Flash Taylor MD Primary Care Provider [phone] Jay Delaney MD Unavailable [phone] Jay Ordoñez MD Unavailable [phone] Allergies Active Allergy Reactions Criticality Noted Date [...] her glucose levels. Up to date with [facility] ordered today Assessment & Plan (04/17/2024 9:42 AM EDT): Control is continuing to improve based upon the patient's SMBG readings. No frequent or severe hypoglycemia. Will maintain her regimen. Continue to work on eating healthy and being active. To call or message with any issues managing her glucose levels. Up to date with [facility] ordered today Assessment & Plan (01/17/2024 11:03 AM EDT): Control is improving based upon the patient's SMBG readings. No frequent or severe hypoglycemia. She will have an occasional low in the morning. She will correct with glucose tablets and then is fine. Will lower her lantus to 10-12 units twice a day, as her fireproof door maker want her on jardiance for the cardiac protection. Will start the jardiance as 10 mg once a day. Discussed potential side effects to watch out for. Continue to work on eating healthy and being active. To call or message with any issues managing her glucose levels. Up to date with [facility] ordered today Assessment & Plan (10/19/2023 12:23 [...] her glucose levels. Up to date with [facility] ordered today Assessment & Plan (07/12/2023 [...] exam is scheduled. Patient is followed by cotton bag clipper Dr. Ordoñez for stage 3b CKD with proteinuria, last note from 05/03/2023 reviewed. 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 We discussed how this works. Patient has appointment with [facility]. Assessment & Plan (03/24/2023 4:39 [...] Type Department Care Team Description 06/16/2025 Refill [facility] Endocrinology [place] [address] [facility] [place] [address] Caro Caraballo PA-C Medication Refill 05/28/2025 Telephone [facility] Internal Medicine [address] [facility] [place] [place] [address] Flash Taylor MD Cancel appt 05/28 from [...] 11:00 AM EST Office Visit [facility] [address] [place] [phone] Sailaja Montenegro MD [address] [place] [phone] [email or web address] Health Maintenance Due Date Last Done Comments [...] Comprehensive metabolic panel (04/16/2025) Sodium - External [facility] Potassium - External 4.5 [facility] Chloride - External [facility] CO2 - External [facility] BUN - External [facility] Creatinine - External 2.19 [facility] Glucose - External [facility] Albumin - External [facility] Protein - External [facility] Calcium - External [facility] Alkaline Phosphatase - External [facility] Bilirubin, total - External [facility] AST - External [facility] ALT - External 12 [facility] Globulin - External [facility] eGFR - External [facility] Anion Gap - External [facility] Blood 04/16/2025 us Sailaja Montenegro MD LAB BLOOD ORDERABLES Edited Re sult - Final [address] [address] * (ABNORMAL) Hemoglobin A1c (04/17/2024 10:00 AM EDT) HEMOGLOBIN A1C 8.6(H) 4.3 - 5.8 % [facility] Blood 04/17/2024 10:0 0 AM EDT 04/17/2024 10:01 AM EDT us Caro Caraballo PA-C LAB BLOOD ORDERABL ES Final Result [address] [address] from Last 3 Months or Most Recently Relevant to Health Maintenance Insurance MEDICARE HMO REPLACEMENT [facility] [place] MEDICARE HMO REPLACEMENT Care Teams Chief Nurse Anesthetist Relationship Specialty Start Date End Date Flash Taylor MD [address] [place] [phone] PCP - General Internal Medicine 07/12/23 Jay Delaney MD [address] [place] [address] Dr [address] [place] [phone] Cardiology 10/19/23 Jay Ordoñez MD [address] [place] [address] Nephrology 04/17/24 Additional Source Comments The information contained in this document represents components of the legal health record. It is not the complete legal health record.Formerly [facility]
--- OUTSIDE RECORDS SUMMARY | 2025-07-27 21:01 | XMS_ITS | Encounter Summary ---
Author Organization [employer] Address [address] [place] [address] Care Team Providers Care Gis Instructor Name Role Phone Flash Taylor MD Primary Care Provider [phone] Encounter Details Date Type Department Care Team (Late st Contact Info) Description 06/03/2025 Lab Requisition [facility] [address] [facility] [place] [address] Kaylene Burns MD [address] [phone] Heart failure, unspecified (CMS/HCC V24, CMS/HCC V28); [...] V28) documented in this encounter Care Teams Gis Instructor Relationship Specialty Start Date End Date Flash Taylor MD [address] [place] [phone] PCP - General 12/02/07 documented as of this encounter
--- OUTSIDE RECORDS SUMMARY | 2025-07-27 21:01 | XMS_ITS | Encounter Summary ---
Author Organization [employer] Address [address] [place] [address] Care Team Providers Care Fine Jewelry Sales Associate Name Role Phone Flash Taylor MD Primary Care Provider [phone] Encounter Details Date Type Department Care Team (Late st Contact Info) Description 06/22/2025 Lab Requisition [facility] - Main Lab [address] [facility] [place] [address] Kaylene Burns MD [address] [phone] Unspecified diastolic (congestive) heart failure ([facility] V24, [facility] V28); Type 2 diabetes mellitus without complications ([facility] V24, [facility] V28); Primary pulmonary hypertension ([facility] V24, [facility] V28); Chronic obstructive pulmonary disease with (acute) exacerbation ([facility] V24, [facility] V28) Social History Tobacco Use Types Packs/Day [...] Diagnoses Diagnosis Unspecified diastolic (congestive) heart failure ([facility]/HCC V24, [facility] V28) Type 2 diabetes mellitus without complications ([facility] V24, [facility] V28) Primary pulmonary hypertension ([facility] V24, [facility]/HCC V28) Primary pulmonary hypertension Chronic obstructive pulmonary disease with (acute) exacerbation (CMS/[facility] V24, CMS/HCC V28) documented in this encounter Care Teams Fine Jewelry Sales Associate Relationship Specialty Start Date End Date Flash Taylor MD [address] [place] [address] PCP - General 12/02/07 documented as of this encounter
--- OUTSIDE RECORDS SUMMARY | 2025-07-27 21:01 | XMS_ITS | Encounter Summary ---
Author Organization [employer] Address [address] [place] [address] Care Team Providers Care Chief Chemist Name Role Phone Flash Taylor MD Primary Care Provider [phone] Encounter Details Date Type Department Care Team (Late st Contact Info) Description 06/14/2025 Lab Requisition [facility] - Main Lab [address] [facility] [place] [address] Kaylene Burns MD [address] [phone] Unspecified diastolic (congestive) heart failure ([facility]/HCC V24, [facility] V28); Acute kidney failure, unspecified ([facility] V24); Chronic obstructive pulmonary disease with (acute) exacerbation ([facility] V24, [facility] V28); Primary pulmonary hypertension ([facility] V24, [facility] V28); Type 2 diabetes mellitus without complications ([facility] V24, [facility] V28); Vitamin D deficiency, unspecified Social History [...] AM EDT Unspecified diastolic (congestive) heart failure ([facility] V24, CMS/HCC V28) Acute kidney failure, unspecified ([facility]/HCC V24) Chronic obstructive pulmonary disease with (acute) exacerbation ([facility]/HCC V24, [facility]/HCC V28) Primary pulmonary hypertension ([facility]/HCC V24, [facility]/HCC V28) Type 2 diabetes mellitus without complications ([facility]/HCC V24, [facility]/HCC V28) Vitamin D deficiency, unspecified COMPLETE BLOOD COUNT Routine 06/14/2025 7:18 AM EDT Unspecified diastolic (congestive) heart failure ([facility]/HCC V24, [facility]/HCC V28) Acute kidney failure, unspecified ([facility]/HCC V24) Chronic obstructive pulmonary disease with (acute) exacerbation ([facility]/HCC V24, [facility]/HCC V28) Primary pulmonary hypertension ([facility]/HCC V24, [facility]/HCC V28) Type 2 diabetes mellitus without complications ([facility] V24, [facility] V28) Vitamin D deficiency, unspecified MAGNESIUM Routine 06/14/2025 7:18 AM EDT Unspecified diastolic (congestive) heart failure ([facility]/HCC V24, [facility]/HCC V28) Acute kidney failure, unspecified ([facility]/HCC V24) Chronic obstructive pulmonary disease with (acute) exacerbation ([facility]/HCC V24, [facility]/HCC V28[facility] Primary pulmonary hypertension ([facility]/HCC V24, [facility]/HCC V28) Type 2 diabetes mellitus without complications ([facility] V24, [facility]/HCC V28) Vitamin D deficiency, unspecified HEMOGLOBIN A1C Routine 06/14/2025 7:18 AM EDT Unspecified diastolic (congestive) heart failure ([facility]/HCC V24, [facility]/HCC V28) Acute kidney failure, unspecified ([facility]/HCC V24) Chronic obstructive pulmonary disease with (acute) exacerbation ([facility]/HCC V24, [facility]/HCC V28) Primary pulmonary hypertension ([facility]/HCC V24, [facility]/HCC V28) Type 2 diabetes mellitus without complications ([facility]/HCC V24, [facility]/HCC V28) Vitamin D deficiency, unspecified FOLATE Routine 06/14/2025 7:18 AM EDT Unspecified diastolic (congestive) heart failure ([facility]/HCC V24, [facility] V28) Acute kidney failure, unspecified ([facility] V24) Chronic obstructive pulmonary disease with (acute) exacerbation ([facility] V24[facility] V28[facility] Primary pulmonary hypertension ([facility] V24, [facility] V28) Type 2 diabetes mellitus without complications ([facility] V24, [facility] V28) Vitamin D deficiency, unspecified VITAMIN B12 Routine 06/14/2025 7:18 AM EDT Unspecified diastolic (congestive) heart failure ([facility] V24, [facility] V28) Acute kidney failure, unspecified ([facility] V24) Chronic obstructive pulmonary disease with (acute) exacerbation ([facility] V24, [facility] V28) Primary pulmonary hypertension ([facility] V24, [facility] V28) Type 2 diabetes mellitus without complications ([facility] V24, [facility] V28) Vitamin D deficiency, unspecified COMPREHENSIVE METABOLIC PANEL Routine 06/14/2025 7:18 AM EDT Unspecified diastolic (congestive) heart failure ([facility] V24, [facility] V28) Acute kidney failure, unspecified ([facility] V24) Chronic obstructive pulmonary disease with (acute) exacerbation ([facility] V24, [facility] V28[facility] Primary pulmonary hypertension ([facility] V24, [facility] V28) Type 2 diabetes mellitus without complications ([facility] V24, [facility] V28) Vitamin D deficiency, unspecified documented in this encounter Results * (ABNORMAL) Hemoglobin A1c (06/14/2025 7:18 AM EDT) Hemoglobin A1C 8.4(H) <6.5 % LAB CHEMISTRY METHOD 06/14/2025 11:00 AM EDT [facility] Mean Bld Glu Estim. 194 mg/dL LAB CHEMISTRY METHOD 06/14/2025 11:00 AM EDT [facility] Blood Venous blood specimen / Unknown Venipuncture / Unknown 06/14/2025 7:18 AM EDT 06/14/2025 8:30 AM EDT Kaylene Burns MD LAB BLOOD ORDERABLES Fin al Result Performing Organization Address City/[facility] Co de Phone Number [facility] [address] [place] [address], [place] [phone] * Vitamin D 25 hydroxy (06/14/2025 7:18 AM EDT) [facility] Vit D, 25-Hydroxy 57.9 30.0 - 80.0 ng/mL LAB CHEMISTRY METHOD 06/14/2025 12:02 PM EDT [facility] Blood Venous blood specimen / Unknown Venipuncture / Unknown 06/14/2025 7:18 AM EDT 06/14/2025 8:30 AM EDT Kaylene Burns MD LAB BLOOD ORDERABLES Fin al Result Performing Organization Address [facility] de Phone Number [facility] [address] [place] [address], [place] [phone] * (ABNORMAL) Vitamin B12 (06/14/2025 7:18 AM EDT) [facility] Vitamin B-12 952(H) 250 - 900 pcg/mL LAB CHEMISTRY METHOD 06/14/2025 9:48 AM EDT [facility] Blood Venous blood specimen / Unknown Venipuncture / Unknown 06/14/2025 7:18 AM EDT 06/14/2025 8:30 AM EDT Kaylene Burns MD LAB BLOOD ORDERABLES Fin al Result Performing Organization Address City/[facility]/ZIP Co de Phone Number [facility] [address] [place] [address], [place] [phone] * (ABNORMAL) Folate (06/14/2025 7:18 AM EDT) [facility] Folate >20.0(H) 2.8 - 17.0 ng/ml LAB CHEMISTRY METHOD 06/14/2025 9:38 AM EDT [facility] Blood Venous blood specimen / Unknown Venipuncture / Unknown 06/14/2025 7:18 AM EDT 06/14/2025 8:30 AM EDT Kaylene Burns MD LAB BLOOD ORDERABLES Fin al Result Performing Organization Address [facility]/ZIP Co de Phone Number [facility] [address] [place] [address], [place] [phone] * (ABNORMAL) Magnesium (06/14/2025 7:18 AM EDT) [facility] Magnesium 1.8(L) 1.9 - 2.6 mg/dL LAB CHEMISTRY METHOD 06/14/2025 9:25 AM EDT [facility] Blood Venous blood specimen / Unknown Venipuncture / Unknown 06/14/2025 7:18 AM EDT 06/14/2025 8:30 AM EDT Kaylene Burns MD LAB BLOOD ORDERABLES Fin al Result Performing Organization Address [facility] de Phone Number [facility] [address] [place] [address], [place] [phone] * (ABNORMAL) Comprehensive metabolic panel (06/14/2025 7:18 AM EDT) [facility] Sodium 143 133 - 145 mmol/L LAB CHEMISTRY METHOD 06/14/2025 9:46 AM EDT [facility] Potassium 4.5 3.5 - 5.5 mmol/L LAB CHEMISTRY METHOD 06/14/2025 9:46 AM EDT [facility] Chloride 107 96 - 110 mmol/L LAB CHEMISTRY METHOD 06/14/2025 9:46 AM EDT [facility] Comment:Results verified by repeat testing CO2 32 21 - 32 mmol/L LAB CHEMISTRY METHOD 06/14/2025 9:46 AM [facility] Anion Gap 4 3 - 11 LAB CHEMISTRY METHOD 06/14/2025 9:46 AM [facility] Glucose 141(H) 70 - 100 mg/dL LAB CHEMISTRY METHOD 06/14/2025 9:46 AM [facility] BUN 73(H) 5 - 25 mg/dL LAB CHEMISTRY METHOD 06/14/2025 9:46 AM [facility] Creatinine 1.73(H) 0.50 - 1.10 mg/dL LAB CHEMISTRY METHOD 06/14/2025 9:46 AM [facility] eGFR 30(L) >=60 mL/min/1. 73m2 LAB CHEMISTRY METHOD 06/14/2025 9:46 AM [facility] Comment:Calculation based on the Chronic Kidney Disease Epidemiology Collaboration (CKD-EPI) equation refit without adjustment for race. BUN/Creatinine Ratio 42.2 LAB CHEMISTRY METHOD 06/14/2025 9:46 AM [facility] Calcium 7.6(L) 8.5 - 10.5 mg/dL LAB CHEMISTRY METHOD 06/14/2025 9:46 AM [facility] AST (SGOT) 19 10 - 42 unit/L LAB CHEMISTRY METHOD 06/14/2025 9:46 AM [facility] ALT (SGPT) 13 10 - 60 unit/L LAB CHEMISTRY METHOD 06/14/2025 9:46 AM [facility] Alkaline Phosphatase 58 42 - 121 unit/L LAB CHEMISTRY METHOD 06/14/2025 9:46 AM [facility] Total Protein 5.3(L) 6.0 - 8.0 g/dL LAB CHEMISTRY METHOD 06/14/2025 9:46 AM [facility] Albumin 2.6(L) 3.2 - 5.0 g/dL LAB [facility]STR[facility]25 [facility] Total Bilirubin 0.6 0.0 - 1.4 mg/dL LAB CHEMISTRY METHOD 06/14/2025 9:46 AM EDT [facility] Blood Venous blood specimen / Unknown Venipuncture / Unknown 06/14/2025 7:18 AM EDT 06/14/2025 8:30 AM EDT us Kaylene Burns MD LAB BLOOD ORDERABLES Fin al Result [facility] [address] [place] [address], * (ABNORMAL) Complete blood count (06/14/2025 7:18 AM EDT) WBC 5.7 4.8 - 10.8 K/mcL LAB HEMETOLOGY METHOD 06/14/2025 9:34 AM [facility] RBC 3.10(L) 3.80 - 4.80 M/mcL LAB HEMETOLOGY METHOD 06/14/2025 9:34 AM [facility] Hemoglobin 9.1(L) 11.5 - 16.0 g/dL LAB HEMETOLOGY METHOD 06/14/2025 9:34 AM [facility] Hematocrit 30.1(L) 35.0 - 47.0 % LAB HEMETOLOGY METHOD 06/14/2025 9:34 AM [facility] MCV 97.7 79.0 - 98.0 FL LAB HEMETOLOGY METHOD 06/14/2025 9:34 AM [facility] MCH 29.5 27.0 - 32.0 pcg LAB HEMETOLOGY METHOD 06/14/2025 9:34 AM [facility] MCHC 30.2(L) 32.0 - 37.0 g/dL LAB HEMETOLOGY METHOD 06/14/2025 9:34 AM [facility] RDW 15.4(H) 11.0 - 15.0 % LAB HEMETOLOGY METHOD 06/14/2025 9:34 AM EDT [facility] Platelets 150 130 - 400 K/mcL LAB HEMETOLOGY METHOD 06/14/2025 9:34 AM EDT [facility] MPV 13.3(H) 7.0 - 11.0 FL LAB HEMETOLOGY METHOD 06/14/2025 9:34 AM EDT [facility] NRBC 0.0 <1.0 % LAB HEMETOLOGY METHOD 06/14/2025 9:34 AM EDT [facility] NRBC Absolute 0.00 <0.10 K/mcL LAB HEMETOLOGY METHOD 06/14/2025 9:34 AM EDT [facility] Blood Venous blood specimen / Unknown Venipuncture / Unknown 06/14/2025 7:18 AM EDT 06/14/2025 8:30 AM EDT us Kaylene Burns MD LAB BLOOD ORDERABLES Fin al Result [facility] [address] [place] [address], documented in this encounter Visit Diagnoses Diagnosis Unspecified diastolic (congestive) heart failure ([facility]/HCC V24, [facility] V28) Acute kidney failure, unspecified ([facility] V24) Acute kidney failure, unspecified Chronic obstructive pulmonary disease with (acute) exacerbation (CMS/HCC V24, [facility] V28) Primary pulmonary hypertension (CMS/HCC V24, [facility] V28) Primary pulmonary hypertension Type 2 diabetes mellitus without complications ([facility] V24, [facility] V28) Vitamin D deficiency, unspecified documented in this encounter Care Teams Chief Chemist Relationship Specialty Start Date End Date Flash Taylor MD [address] [place] [id number] PCP - General 12/02/07 documented as of this encounter
== END ==
LOC: HO.SL 19:30
PROVIDERS: PCP Internal Medicine; Visit Provider Hospitalist
DX: J96.11 Chronic respiratory failure with hypoxia (principal); J96.12 Chronic respiratory failure with hypercapnia; G47.33 Obstructive sleep apnea (adult) (pediatric)
CPT/HCPCS: 95810

== ENCOUNTER → 2025-07-27 22:20 | Outpatient (BNV) | payer MEDICARE, MEDICAID, SELFPAY | PROVIDERS: PCP Internal Medicine; Visit Provider Internal Medicine | DX: G47.33 Obstructive sleep apnea (adult) (pediatric) (principal) | CPT/HCPCS: 95810 ==

== ENCOUNTER 2025-10-04 13:08 | Outpatient (AMB) | payer MEDICARE, MEDICAID, SELFPAY ==
[2025-10-04 13:11] VITALS: BP 120/64; PULSE 89; O2SAT 93; BMI 40.2
--- NOTE | 2025-10-04 13:11 | MHC.OFFVIS ---
Vital Signs 10/04/25 13:11 Height 5 ft 1 in Weight 212 lb 11.937 oz BMI 40.2 BP 120/64 Blood Pressure Location Rt brachial Position Sitting Pulse 89 Pulse Source Pulse Oximeter Pulse Oximetry (%) 93 Oxygen Delivery Method Room Air Intake Visit Reasons: COPD Area Loss Prevention Manager Required: Yes Area Loss Prevention Manager Services: Area Loss Prevention Manager Offered & Declined Area Loss Prevention Manager Name: son will interpret Accompanied by: Son Allergies erythromycin base Allergy (Severe, Verified 10/04/25 13:17) Rash amoxicillin Adverse Reaction (Severe, Verified 10/04/25 13:17) Unknown ciprofloxacin (From Cipro) Adverse Reaction (Severe, Verified 10/04/25 13:17) Rash morphine Adverse Reaction (Severe, Verified 10/04/25 13:17) rash vancomycin Adverse Reaction (Severe, Verified 10/04/25 13:17) tao HPI Comments Details: The patient is a 80 year woman with a known history of COPD, ROBERTO on CPAP, in addition to congestive heart failure been complaining of worsening dyspnea on exertion the patient states that several years ago she was admitted to with a episode of decompensated heart failure. During that time the patient was placed on oxygen and was placed on cardioprotective medications and diuretics. Ultimately she was discharged on oxygen. Therefore she has been on oxygen now for several years getting his at her oxygen to her [employer] company, [employer]. Her family has also noticed that she has had significant wheezing and shortness of breath. She had been evaluated by Pulmonary in the past although I do not have those notes. She has not had pulmonary function studies in several years. She did follow-up with her primary care doctor who noted that she had been having significant wheezing and she was given a course of prednisone and also a sample of Stiolto. She completed the prednisone and she did feel little partial improvement. She continues on the Stiolto although is difficult for her to use. She had been on Anoro inhaler in the past but was 300 dollars extremely expensive and she could not afford using that on a monthly basis. Her friend did have a nebulizer and did provide the nebulizer for on treatment because she was wheezy and she did have improvement of her symptoms. She is wondering if a nebulizer could be helpful. Therefore she was referred to Pulmonary for further evaluation. During the visit we did go for 6 minutes walk test on the patient quickly desaturated on room air. She did well with a conserving device so therefore I will see resend a prescription to her DME company, [employer] in order for her to get be cylinders with a conserving valve with 2 L pulse. This will provide her better portability outside of the home. The patient also family the are also interested in getting a portable oxygen concentrator. Explained to them that this would be something that could be done but is going to take a significantly long time and sometimes it could be more than a year. Therefore she can start with the cylinders and try the pulse valve to see how this is effective for her. We can also provide her with a nebulizer and provided with medications in order for her to use it on a regular basis. The in the meantime will also have her undergo pulmonary function studies and a chest x-ray and she will follow up. the patient is also working with Cardiology. She did undergo an echocardiogram and now scheduled to undergo a nuclear stress test in the coming days. I do not have those results. 01/25/2023 the patient is here for pulmonary follow-up visit. Since we last spoke the patient did develop worsening shortness of breath and cough and wheezing. She did call in and we Center prednisone antibiotics. The prednisone did help her breathing significantly. Now she has completed the course. She still having shortness of breath. She did qualify for oxygen with activity during the last visit. Will go ahead and make sure that [employer] provides her with portable tanks ideally be sending the heart to be able to carry the oxygens outside of the home easier. In addition to this the patient has been using the Xopenex and also the budesonide twice a day. This has been partially helpful. We can also add muscarinic antagonist to the regimen and is no better. In addition to this will request blood work including allergy testing to assess to see if she is a good candidate for biologic therapy. We did review her pulmonary function studies demonstrating a moderate to severe obstructive lung disease in this case likely uncontrolled asthma and also the of lotion of COPD. Apparently the patient did have an echocardiogram done. I do not have the results but based on the daughter's description it appears that she has a component of pulmonary hypertension. Apparently her cardiac status is otherwise stable. It is possible that she has pulmonary hypertension secondary to her history of COPD and also some obstructive sleep apnea. Although will have to further address that to make sure the patient does not have any of the other groups. Patient is definitely volume overloaded this time she needs a additional diuresis. 05/19/2023 the patient is here for hospital follow-up visit. The patient has COPD and also has been on CPAP. She was admitted to the [facility] hospital with significant discomfort. She was having significant shortness of breath. While she was there she developed respiratory failure. She was transferred over to required BiPAP. Even after BiPAP she has evidence of chronic hypercarbic respiratory failure secondary to her COPD. The patient has been on maximum respiratory therapy for COPD. At this point the patient needs to restart her on a noninvasive ventilator. The patient carries a poor prognosis with significant hypercarbia. She also carries a high risk of readmissions to the hospital. For that reason the patient needs to start a noninvasive ventilator. Noninvasive ventilator were improve her gas exchange and would also improve her prognosis and decrease hospitalizations. I spoken to the family and they are agreeable to this will start the process in order to get her on an astral noninvasive ventilator at this time. 07/08/2023 the patient is here for a pulmonary follow-up visit. Overall the patient has been doing better from a respiratory status. She did start the astral noninvasive ventilator. Is been very effective for her. She does use it every night. The therapy has been effective am beneficial. She is also been using her oxygen. The patient has been noticing increasing shortness of breath. Recently had a big [place] festival and she made a lot of food. There was some dietary indiscretions unfortunately. The patient noticed that her blood pressure went up and also significant weight gain. She is been working closely with cardiology to increase her diuretic safely. She does have blood work scheduled for tomorrow for additional evaluation of electrolytes and kidney function. If she does not improve there is mention of in-hospital therapy. We did have her undergo a chest x-ray today. No focal disease although appears to be demonstrating evidence of pulmonary vascular congestion. the patient will continue the diuretics as per Cardiology. If the patient is not better she will call and we can consider treating her for an ongoing lower respiratory process. But, right now she is not having any significant cough chest congestion or wheezing. 10/04/2023 the patient is here for a pulmonary follow-up visit. The patient has been complaining of worsening shortness of breath. She has gained close to 20 lb since her last visit. She did call out to Cardiology to see if her a diuretic can be adjusted. She was increased on 20 mg of torsemide to 40 mg recently. Still she has a lot of swelling. She has crackles on examination of concerned she is in heart failure. The patient is also using her oxygen. At nighttime she went back to her CPAP because is been hard to tolerate the noninvasive ventilator. I did explain to her that she needs to use her noninvasive ventilator because of her significant hypercarbia. Today before she goes I have her get blood work including a venous blood gas to assess her CO2 and make sure that she does not have any acute components to her hypercarbia. The patient will also have her kidney function checked checked and I will send the blood work over to her mail machine operator in order for them to adjust her diuretics. The patient may benefit from a purple of some type to make sure that she can increased her diuretics to help her with her significant volume overload status. She understands that when her volume increases her pulmonary pressures and a respiratory symptoms also worsen. I will check a lot a prescription for adjustments to her noninvasive ventilator, astral. I did reach out to [employer] to make sure that they go over to her house to adjust the machine accordingly. 03/15/2024 the patient is here for a pulmonary follow-up visit. Overall she has been doing better. The patient has been tolerating her noninvasive ventilator every night. The noninvasive ventilator has been affecting beneficial. She was able to tolerated once he was further adjusted. We did recheck a venous blood gas in her CO2 is already significantly improved. she has not had to use her oxygen as regularly. She does monitor her oxygen levels. However, for the last few days she has been noticed some some increased weight gain. Most likely had to do with mother's day which she was eating different types of food. She is also noticed some increased lower extremity edema. Respiratory exam she is doing okay. No significant crackles appreciated. We did review her previous blood work that she had back in October. Her hemoglobin had dropped from 13 to 10.5. The patient states that she was supposed to have blood work done but she has not done as of yet. In addition to that on the diuretic therapy she needs to be careful with her kidney function. Will go ahead and request blood work since she is here today. Will go ahead and send him over to her primary care doctor's office. For now she is going to continue with current respiratory therapy. she will continue with diuresis as tolerated. She has had issues with blood pressure when she we closely working with her mail machine operator and primary care doctor in order to improve her blood pressure control. other issues that she is complained about his what appears to be post herpetic neuralgia causing significant pain down her leg. In addition to that she did develop significant amount of psoriasis after getting vaccinated. 06/27/2024 the patient is here for a pulmonary follow-up visit. Overall the patient is doing well from a respiratory status. She continues to use the oxygen with good effect. In addition to that she has been using noninvasive ventilator. . She is being followed closely by primary care in addition to Nephrology. We did review her recent blood work that she had a [facility]. It appears that her BUN now is above 100. The last time that was measured at [facility] it was only the 50s. Therefore, this is significantly elevated. The patient has been on multiple about diuretics. I did recommend she can hold her torsemide she to she speaks to Nephrology. The patient does appear to have some degree of asterixis on examination. I am not sure it does although if that is an early sign of uremia. No evidence of any active bleeding at this time. Seems like a mentation is stable. 01/26/2025 the patient is here for a pulmonary follow-up visit. She overall has been doing fair. She continues use a noninvasive ventilator at nighttime. He has been very helpful. However, is also very expensive. She has pain about 2 boxes month. We did call the [employer], [place] under going to see about helping her with a hardship form to see if she qualifies in order to minimize the expense. Otherwise she has not old BiPAP and we can see if we can adjusted to see she can not tolerated and see if this provides with the same relief without the significant cost. In addition to that we did provide paperwork to fill out for hugh because she does have significant elements. The patient otherwise has continue her respiratory medications with good effect. She continues her oxygen also will good effect. Will continue the current respiratory regimen follow-up in the fall. She has any issues prior to that she will call for an earlier assessment. 04/10/2025 the patient is here for a pulmonary follow-up visit. The patient went back to using her CPAP. The CPAP therapy appears to be affecting beneficial. She does use it for more than 4 hours a night. Her AHI was down to 1.1. Seems that she is tolerating well with a fullface mask. The issue is that she does have issues with hypercarbia. She will need a sleep study to see if she can be tried on BiPAP. She may need a split study if possible if not a titration study afterwards. She continues with respiratory therapy with good effect. She did have a blood gas her pCO2 still elevated at 59 but is at her baseline. Which is reassuring specially after being on CPAP. She had been responding well to the noninvasive ventilator but was very expensive for her to pay the monthly expense. 07/24/2025 the patient is here for a hospital follow-up visit. She has been very sickly. Apparently she spent some time at [facility] admitted back in May then she went to rehab and then she had to go back to the hospital at [facility] back in June and then she went to rehabilitation. She was basically out of the house for more than 6 weeks. The patient was treated for heart failure and also acute on chronic hypercarbic respiratory failure and COPD she was also treated for acute kidney injury where her creatinine increased significantly to the point that they thought she would need dialysis. Although things did normalize. In the meantime she does use the oxygen. Although she does not have any portable tanks that she can handle. In the office here we did go for brief walking oximetry with a portable oxygen concentrator and she did desaturate down to 88% on room air with simple walking on room air and then which she was placed on 2 L pulse maintaining a pulse ox about 94%. Therefore will request a portable oxygen concentrator battery operated from [facility] for better portability outside of the home. And she is also using the oxygen while sleeping. She is waiting for sleep study. She needs to have a in-lab sleep study to address her end-tidal CO2 and also her sleep apnea in order to better effectively treated. Will have to make sure that her test that is scheduled for the end of July is capable of monitoring her end-tidal CO2 if now we are going to have to cancer and order it elsewhere. She continues use her diuretics and cardioprotective medications as prescribed her respiratory medications as prescribed. 10/04/2025 the patient is here for pulmonary follow-up visit. Since we last spoke she was admitted to [facility] with weakness and diarrhea. She had metabolic acidosis. She also has a encephalopathy. She subsequently improved. The patient was able to be discharged. Prior to the hospitalization the patient did go for in-lab sleep study. However she only slept a minimal amount. She had no REM sleep. The very suboptimal study. She needs to have a repeat study. She has significant daytime drowsiness with an elevated Alleene score of 11/24. She has evidence of chronic respiratory failure requiring oxygen. Will go ahead and request an in-lab sleep study with end-tidal CO2 monitoring a [facility]. In the meantime the patient will come in for a blood gas in the coming weeks. She continues on her diuretics as tolerated. She also continues with respiratory therapy. Will follow-up in 2-3 months. [facility] Medical History (Updated 06/27/24 @ 13:13 by Jeffery Jackson MD) Anemia Post herpetic neuralgia Pulmonary hypertension Asthma CHF (congestive heart failure) Chronic respiratory failure ROBERTO (obstructive sleep apnea) Extremity edema COPD (chronic obstructive pulmonary disease) Social History Patient Tobacco Use Status: Never used Tobacco Review of Systems Const Denies chills, Reports daytime sleepiness, Reports fatigue, Denies fever(s) and Reports snoring Eyes Denies change in vision ENT Denies dizziness Card Denies chest pain, Reports leg edema, Denies lightheadedness, Denies palpitations, Reports dyspnea on exertion, Denies orthopnea and Denies other Resp Reports cough, Reports dyspnea on exertion, Reports snoring and Reports wheezing GI Denies hematochezia and Denies change in stool character Musc Reports abnormal gait, Reports arthralgias, Denies muscle weakness, Denies numbness, Denies radiating pain into limb and Denies tingling Skin/Breast Reports lesions and Reports rash Neuro Reports abnormal gait, Denies dizziness, Denies numbness and Denies tingling Endo Reports fatigue and Denies palpitations Clint/Lymph Denies easy bleeding and Denies easy bruising Aller/Immun Reports wheezing Physical Exam Vital Signs: Last Vital Signs Pulse 89 10/04/25 13:11 BP 120/64 10/04/25 13:11 Pulse Ox 93 10/04/25 13:11 Oxygen Delivery Method Room Air 10/04/25 13:11 BMI result Body Mass Index 40.2 Const General: comfortable HEENT Head: Yes normocephalic Eyes General: appearance normal, both eyes and all related structures Neck Neck: Yes supple Chest Chest palpation & inspection: normal inspection of the chest Resp Effort & Inspection: normal respiratory effort Auscultation: no rales, no wheezes and diminished lung sounds Cardio Rate: regular rate Rhythm: regular rhythm Heart sounds: S1 normal heart sound present and S2 normal heart sound present GI Palpation (GI): Soft to palpation Skin General skin exam: no rashes or lesions noted Extrem General: Yes edema Assessment & Plan Assessment & Plan (1) ROBERTO (obstructive sleep apnea): Code(s): G47.33 - Obstructive sleep apnea (adult) (pediatric) Category: Medical (2) Chronic respiratory failure: Code(s): J96.10 - Chronic respiratory failure, unspecified whether with hypoxia or hypercapnia Category: Medical Qualifiers: Respiratory failure complication: hypoxia and hypercapnia Qualified Code(s): J96.11 - Chronic respiratory failure with hypoxia; J96.12 - Chronic respiratory failure with hypercapnia (3) CHF (congestive heart failure): Code(s): I50.9 - Heart failure, unspecified Category: Medical Qualifiers: Heart failure chronicity: acute on chronic Heart failure type: systolic Qualified Code(s): I50.23 - Acute on chronic systolic (congestive) heart failure (4) COPD (chronic obstructive pulmonary disease): Comment: moderate to severe Code(s): J44.9 - Chronic obstructive pulmonary disease, unspecified Category: Medical Qualifiers: COPD type: emphysema Emphysema type: centrilobular Qualified Code(s): J43.2 - Centrilobular emphysema (5) Extremity edema: Code(s): R60.0 - Localized edema Category: Medical (6) Pulmonary hypertension: Comment: Likely WHO group 2&3 Code(s): I27.20 - Pulmonary hypertension, unspecified Category: Medical (7) Post herpetic neuralgia: Code(s): B02.29 - Other postherpetic nervous system involvement Category: Medical (8) Anemia: Code(s): D64.9 - Anemia, unspecified Category: Medical Qualifiers: Iron deficiency anemia type: unspecified iron deficiency Plan continue nebulizer with xopenex and budesonide continue oxygen: POC 2l/pulse with activity for better portability outside of the home. continue nocturnal oxygen with PAP requesting inlab sleep study with end tidal CO2 diuresis as tolerated lidoderm patch to affected area F/U 2-3 months Orders: Orders RT PSG in-lab sleep study Today G47.33 - Obstructive sleep apnea (adult) (pediatric), J96.11 - Chronic respiratory failure with hypoxia, J96.12 - Chronic respiratory failure with hypercapnia Basic Metabolic Panel Today I27.20 - Pulmonary hypertension, unspecified, I50.23 - Acute on chronic systolic (congestive) heart failure Complete Blood Count Auto Diff Today I27.20 - Pulmonary hypertension, unspecified, I50.23 - Acute on chronic systolic (congestive) heart failure Venous Blood Gas Today I27.20 - Pulmonary hypertension, unspecified, I50.23 - Acute on chronic systolic (congestive) heart failure Coding Level of Care Code Complex visit Add On G2211 Diagnoses ROBERTO (obstructive sleep apnea) G47.33 Chronic respiratory failure with hypoxia and hypercapnia J96.11; J96.12 Respiratory failure complication: hypoxia and hypercapnia Acute on chronic systolic congestive heart failure I50.23 Heart failure chronicity: acute on chronic Heart failure type: systolic Centrilobular emphysema J43.2 COPD type: emphysema Emphysema type: centrilobular Extremity edema R60.0 Pulmonary hypertension I27.20 Post herpetic neuralgia B02.29 Anemia D64.9 Iron deficiency anemia type: unspecified iron deficiency Time Spent (min) 18
== END 2025-10-04 13:51 | disposition home or self-care (01) ==
LOC: HO.HPS 13:09
PROVIDERS: PCP Internal Medicine; Visit Provider Hospitalist
DX: G47.33 Obstructive sleep apnea (adult) (pediatric) (principal); J96.11 Chronic respiratory failure with hypoxia; J96.12 Chronic respiratory failure with hypercapnia; I50.23 Acute on chronic systolic (congestive) heart failure; J43.2 Centrilobular emphysema; R60.0 Localized edema; I27.20 Pulmonary hypertension, unspecified; B02.29 Other postherpetic nervous system involvement; D64.9 Anemia, unspecified
CPT/HCPCS: 99214; G2211

== ENCOUNTER → 2025-10-04 13:08 | Outpatient (BNVA) | payer MEDICARE, MEDICAID, SELFPAY | PROVIDERS: PCP Internal Medicine; Visit Provider Hospitalist | DX: B02.29 Other postherpetic nervous system involvement (principal); I27.20 Pulmonary hypertension, unspecified; I50.23 Acute on chronic systolic (congestive) heart failure; G47.33 Obstructive sleep apnea (adult) (pediatric); D64.9 Anemia, unspecified; J96.11 Chronic respiratory failure with hypoxia; J96.12 Chronic respiratory failure with hypercapnia; J43.2 Centrilobular emphysema; R60.0 Localized edema; Z79.899 Other long term (current) drug therapy | CPT/HCPCS: 99212 ==